=== PATIENT | female | born 1980 | race Caucasian/White ===

== ENCOUNTER → 2016-02-10 | Outpatient (CLI) | payer OTHER ==
[~2016-02-10] MED LIST: ADV500INH INH; ALBU17IN INH; MOTRIN PO; OMEP40CA2 PO; TYLENOL PO; ZYRT10CA PO
[2016-02-11 08:20] LABS: ALPHA 1 ANTITRYPSIN 158 mg/dL (90-200)
[2016-02-12 00:07] LABS: Lyme Disease IgG/IgM Antibodie <0.91 ISR (0.00-0.90); Lyme Disease IgM Ab Quantitati <0.80 index (0.00-0.79)
== END ==
LOC: M LAB 13:33
PROVIDERS: ATTEND Nurse Practitioner Adult Health
DX: J45.901 Unspecified asthma with (acute) exacerbation (principal); L72.9 Follicular cyst of the skin and subcutaneous tissue, unspecified

== ENCOUNTER → 2016-03-30 | Outpatient (REF) | payer OTHER | LOC: M LAB REF 17:12 | PROVIDERS: ATTEND Specialist | DX: Z12.4 Encounter for screening for malignant neoplasm of cervix (principal) ==

== ENCOUNTER → 2016-07-26 | Outpatient (CLI) | payer OTHER ==
[~2016-07-26] MED LIST changes: +ADDE25CA PO; +ALEV220T26 PO; +BREO1INH INH; +IPRASOL4 IN; +MELA10TA3 PO; +PRED20TA PO; +SING10TA32 PO; +SUBO12MI SL
== END ==
LOC: M OUTALCOH 07:58
PROVIDERS: ATTEND Psychiatry & Neurology Psychiatry
DX: Z13.9 Encounter for screening, unspecified (principal); F11.20 Opioid dependence, uncomplicated; F10.10 Alcohol abuse, uncomplicated; F14.10 Cocaine abuse, uncomplicated

== ENCOUNTER 2016-07-28 08:19 | Emergency (ER) | payer OTHER ==
[~2016-07-28 08:19] MED LIST changes: -ADDE25CA PO; -ALEV220T26 PO; -BREO1INH INH; -IPRASOL4 IN; -MELA10TA3 PO; -PRED20TA PO; -SING10TA32 PO; -SUBO12MI SL
[2016-07-28] MEDS ORDERED: BREO1INH INH (08:30)
[2016-07-28] MEDS ORDERED: ALEV220T26 PO (08:30)
[2016-07-28] MEDS ORDERED: SUBO12MI SL (08:32)
[2016-07-28] MEDS ORDERED: ADDE25CA PO (08:32)
[2016-07-28] MEDS ORDERED: MELA10TA3 PO (08:32)
[2016-07-28] MEDS ORDERED: SING10TA32 PO (08:32)
[2016-07-28] MEDS ORDERED: IPRATROPIUM 0.5MG/ALBUTEROL 2.5MG INH SOL UD 3ML (DUONEB)(J7620) NEB ONE ×3 (09:30→11:15)
[2016-07-28] MEDS ORDERED: methylPREDNISolone INJ 125 MG/2 ML VIAL (J2930) IV ONE (09:30)
[2016-07-28] MEDS ORDERED: methylPREDNISolone INJ 125 MG/2 ML VIAL (J2930) IM ONE (10:00)
--- NOTE | 2016-07-28 10:18 | REP ---
PA and lateral chest: Comparisons 12/25/2015. The lung charles are clear. The cardiac size is normal The lory, mediastinum, and bony thorax are unremarkable. Impression: Negative PA and lateral chest. Signed by Laurent Parra MD 07/28/2016 10:10 A
[2016-07-28 10:27] LABS: BASO % 0.9 % (0.0-1.0); EOS # 0.2 K/mm3 (0.0-0.50); EOS % 4.5 % (0.0-3.0); LARGE UNSTAINED CELL # 0.1 K/mm3 (0.0-0.4); LARGE UNSTAINED CELL % 2.3 % (0.0-4.0); LYMPH # 1.8 K/mm3 (1.5-4.5); MEAN CORPUSCULAR HEMOGLOBIN 28.5 pg (27.0-33.0); MEAN CORPUSCULAR HGB CONC 32.8 g/dl (32.0-36.5); MEAN CORPUSCULAR VOLUME 86.7 fl (80.0-96.0); MONO # 0.5 K/mm3 (0.0-0.8); MONO % 8.4 % (0.0-5.0); NEUTROPHILS # 3.1 K/mm3 (1.8-7.7); NEUTROPHILS % 54.9 % (36.0-66.0); PLATELET COUNT, AUTOMATED 211 k/mm3 (150-450); RED CELL DISTRIBUTION WIDTH 15.2 % (11.5-14.5); WHITE BLOOD COUNT 5.6 K/mm3 (4.0-10.0)
[2016-07-28] MEDS ORDERED: MAG SULF 1GM/100ML (MAG RUN) 1 GM in APPROPRIATE DILUENT 1 EA IV ONE (11:15)
[2016-07-28 11:30] LABS: ANION GAP 3 MEQ/L (8-16); BLOOD UREA NITROGEN 11 MG/DL (7-18); CALCIUM LEVEL 9.1 MG/DL (8.5-10.1); CARBON DIOXIDE LEVEL 29 MEQ/L (21-32); CHLORIDE LEVEL 108 MEQ/L (98-107); GLOMERULAR FILTRATION RATE > 60.0 (>60); GLUCOSE, FASTING 96 MG/DL (70-105); POTASSIUM SERUM 4.8 MEQ/L (3.5-5.1); SODIUM LEVEL 140 MEQ/L (136-145)
[2016-07-28] MEDS ORDERED: PRED20TA PO (11:53)
[2016-07-28] MEDS ORDERED: IPRASOL4 IN (11:54)
[2016-07-28 12:06] VITALS: BP 11/74
== END 2016-07-28 12:09 | disposition home or self-care (01) ==
LOC: M ED 09:11
DX: J45.901 Unspecified asthma with (acute) exacerbation (principal); Z86.19 Personal history of other infectious and parasitic diseases; F41.9 Anxiety disorder, unspecified; F32.9 Major depressive disorder, single episode, unspecified; F17.200 Nicotine dependence, unspecified, uncomplicated; Z79.899 Other long term (current) drug therapy; Z88.8 Allergy status to other drugs, medicaments and biological substances

== ENCOUNTER 2016-08-05 10:00 | Outpatient (RCR) | payer MEDICAID ==
[~2016-08-05 10:00] MED LIST changes: +ADDE25CA PO; +ALEV220T26 PO; +BREO1INH INH; +IPRASOL4 IN; +MELA10TA3 PO; +PRED20TA PO; +SING10TA32 PO; +SUBO12MI SL
== END 2016-08-06 | disposition home or self-care (01) ==
LOC: M OUTALCOH 10:00
PROVIDERS: ATTEND Psychiatry & Neurology Psychiatry
DX: F11.20 Opioid dependence, uncomplicated (principal); F10.10 Alcohol abuse, uncomplicated; F14.10 Cocaine abuse, uncomplicated

== ENCOUNTER 2016-09-02 20:52 | Emergency (ER) | payer MEDICAID, OTHER ==
[~2016-09-02] VITALS: Ht 152.4 cm; Wt 61.2 kg
[2016-09-02] MEDS ORDERED: SING10TA32 PO (21:14)
[2016-09-02] MEDS ORDERED: PROZ40CA PO (21:14)
[2016-09-02] MEDS ORDERED: ALBUTEROL SULFATE 2.5 MG/0.5 ML INH NEB SOLN NEB ONE (22:45)
[2016-09-02] MEDS ORDERED: IPRATROPIUM 0.5MG/ALBUTEROL 2.5MG INH SOL UD 3ML (DUONEB)(J7620) NEB ONE (22:45)
[2016-09-02] MEDS ORDERED: predniSONE 20 MG TAB PO ONE (22:45)
[2016-09-02] MEDS ORDERED: KETOROLAC 60 MG/2 ML VIAL (J1885) IM ONE (22:45)
[2016-09-02] MEDS ORDERED: PRED20TA PO (23:42)
[2016-09-02 23:48] VITALS: BP 109/64
== END 2016-09-02 23:52 | disposition home or self-care (01) ==
LOC: M ED 20:52
DX: J44.1 Chronic obstructive pulmonary disease with (acute) exacerbation (principal); M79.1 Myalgia; F41.9 Anxiety disorder, unspecified; F32.9 Major depressive disorder, single episode, unspecified; J45.909 Unspecified asthma, uncomplicated; B18.2 Chronic viral hepatitis C; F17.200 Nicotine dependence, unspecified, uncomplicated
CPT/HCPCS: 94640; 96374; 99282; J1885

== ENCOUNTER → 2016-09-20 | Outpatient (CLI) | payer OTHER ==
[~2016-09-20] MED LIST changes: +PROZ40CA PO; +ZITHTAB PO
[2016-09-20 10:42] LABS: MEAN CORPUSCULAR HEMOGLOBIN 29.3 pg (27.0-33.0); MEAN CORPUSCULAR VOLUME 88.7 fl (80.0-96.0); RED CELL DISTRIBUTION WIDTH 15.1 % (11.5-14.5); WHITE BLOOD COUNT 10.1 K/mm3 (4.0-10.0)
--- NOTE | 2016-09-20 10:57 | REP ---
PA and lateral chest: Comparison is 07/28/2016. There is a 11 mm density in the right mid lung. There is a 9 mm density in the left mid lung. These are changes from the comparison study. A occurred areas of the overlap and may merely be artifact. However, CT of the chest might be considered for further evaluation as these are changes from the prior study. The lung charles otherwise clear. Cardiac size normal. The lory, mediastinum, and bony thorax are well. Impression: There is a new nodular density in the right lung and nodular density in the left lung. These may merely represent superimposition artifact, but these are a change from the prior study. Therefore, consider CT of the chest for further evaluation. Signed by Laurent Parra MD 09/20/2016 10:49 A
[2016-09-20 11:33] LABS: ALBUMIN 3.7 GM/DL (3.2-5.2); ALBUMIN/GLOBULIN RATIO 1.16 (1.00-1.93); ALKALINE PHOSPHATASE 74 U/L (45-117); ALT/SGPT 25 U/L (12-78); ANION GAP 9 MEQ/L (8-16); AST/SGOT 22 U/L (15-37); BILIRUBIN,TOTAL 0.3 MG/DL (0.2-1.0); BLOOD UREA NITROGEN 9 MG/DL (7-18); CALCIUM LEVEL 8.3 MG/DL (8.5-10.1); CARBON DIOXIDE LEVEL 22 MEQ/L (21-32); CHLORIDE LEVEL 109 MEQ/L (98-107); CHOLESTEROL LEVEL 225 MG/DL (<200); CREATININE FOR GFR 0.59 MG/DL (0.55-1.02); GLOMERULAR FILTRATION RATE > 60.0 (>60); GLUCOSE, FASTING 84 MG/DL (70-105); POTASSIUM SERUM 4.6 MEQ/L (3.5-5.1); SODIUM LEVEL 140 MEQ/L (136-145); TOTAL PROTEIN 6.9 GM/DL (6.4-8.2); TRIGLYCERIDES LEVEL 215 MG/DL (<150)
== END ==
LOC: M LAB 10:06
PROVIDERS: ATTEND Family Medicine
DX: J44.9 Chronic obstructive pulmonary disease, unspecified (principal); R53.83 Other fatigue

== ENCOUNTER 2016-09-21 18:05 | Emergency (ER) | payer OTHER ==
[~2016-09-21] VITALS: Ht 152.4 cm; Wt 59.1 kg
[~2016-09-21 18:05] MED LIST changes: -ZITHTAB PO
[2016-09-21] MEDS ORDERED: ALBUTEROL SULFATE 2.5 MG/0.5 ML INH NEB SOLN NEB ONE (19:30)
[2016-09-21] MEDS ORDERED: NS 1,000 ML IV ONE (19:30)
[2016-09-21] MEDS ORDERED: PRED20TA PO (21:48)
[2016-09-21] MEDS ORDERED: ZITHTAB PO (21:48)
[2016-09-21 21:56] VITALS: BP 30/7
== END 2016-09-21 22:00 | disposition home or self-care (01) ==
LOC: M ED 18:05
DX: J45.901 Unspecified asthma with (acute) exacerbation (principal); J20.9 Acute bronchitis, unspecified; B19.20 Unspecified viral hepatitis C without hepatic coma; M79.7 Fibromyalgia; F90.0 Attention-deficit hyperactivity disorder, predominantly inattentive type; F32.9 Major depressive disorder, single episode, unspecified; F43.10 Post-traumatic stress disorder, unspecified; F17.210 Nicotine dependence, cigarettes, uncomplicated; Z88.7 Allergy status to serum and vaccine; Z79.899 Other long term (current) drug therapy

== ENCOUNTER → 2016-09-24 | Outpatient (CLI) | payer OTHER ==
[~2016-09-24] MED LIST changes: +ZITHTAB PO
--- NOTE | 2016-09-24 14:43 | REP ---
Thyroid ultrasound for mass in the right thyroid lobe: There are no comparison studies. The thyroid gland is normal size. Right lobe measures 4.2 x 1.3 x 1.5 cm. Left lobe measures 4.2 x 1.3 x 1.7 cm. The isthmus is 4.9 mm in thickness. There is a 2.4 mm cyst in the right lobe. There is no mass or cyst in the left lobe. Thyroid parenchyma is otherwise homogeneous. Impression: There is a 2.4 mm cyst in the thyroid right lobe. Otherwise, negative thyroid ultrasound. Signed by Laurent Parra MD 09/24/2016 02:34 P
== END ==
LOC: M RAD 13:49
PROVIDERS: ATTEND Family Medicine
DX: E04.1 Nontoxic single thyroid nodule (principal)

== ENCOUNTER → 2016-11-19 | Outpatient (CLI) | payer OTHER ==
[2016-11-19 16:08] LABS: THYROID PEROXIDASE ANTIBODY < 28.0 U/ML (<60.0)
== END ==
LOC: M LAB 15:11
PROVIDERS: ATTEND Nurse Practitioner Family
DX: E04.1 Nontoxic single thyroid nodule (principal)

== ENCOUNTER → 2017-02-03 | Outpatient (REF) | payer OTHER | LOC: M LAB REF 08:20 | DX: R30.0 Dysuria (principal) | CPT/HCPCS: 81001 ==

== ENCOUNTER → 2017-03-31 | Outpatient (REF) | payer OTHER | LOC: M LAB REF 13:01 | DX: J11.1 Influenza due to unidentified influenza virus with other respiratory manifestations (principal) ==

== ENCOUNTER 2017-04-02 10:08 | Inpatient (IN) | payer OTHER ==
[2017-04-02] MEDS: MORPHINE 4 MG/ML 1ML VIAL (J2270) IV (11:09)
[2017-04-02 11:12] LABS: BASO # 0.1 10^3/uL (0.0-0.2); BASO % 0.3 % (0.0-1.0); EOS # 0.2 10^3/uL (0.0-0.50); EOS % 1.5 % (0.0-3.0); HEMATOCRIT 39.8 % (36.0-47.0); HEMOGLOBIN 12.9 g/dl (12.0-16.0); IMMATURE GRANULOCYTE % 0.3 % (0-3.0); LYMPH # 2.4 10^3/uL (1.5-4.5); LYMPH % 16.9 % (24.0-44.0); MEAN CORPUSCULAR HEMOGLOBIN 28.8 pg (27.0-33.0); MEAN CORPUSCULAR HGB CONC 32.4 g/dl (32.0-36.5); MEAN CORPUSCULAR VOLUME 88.8 fl (80.0-96.0); MONO # 1.2 10^3/uL (0.0-0.8); MONO % 8.5 % (0.0-5.0); NEUTROPHILS # 10.4 10^3/uL (1.8-7.7); NEUTROPHILS % 72.5 % (36.0-66.0); PLATELET COUNT, AUTOMATED 255 10^3/uL (150-450); RED BLOOD COUNT 4.48 10^6/uL (4.00-5.40); RED CELL DISTRIBUTION WIDTH 14.8 % (11.5-14.5); WHITE BLOOD COUNT 14.3 10^3/uL (4.0-10.0)
[2017-04-02 11:37] LABS: ANION GAP 6 MEQ/L (8-16); BLOOD UREA NITROGEN 6 MG/DL (7-18); C REACTIVE PROTEIN QUANTITATIV 7.58 MG/DL (0.00-0.30); CALCIUM LEVEL 8.6 MG/DL (8.5-10.1); CARBON DIOXIDE LEVEL 26 MEQ/L (21-32); CHLORIDE LEVEL 102 MEQ/L (98-107); CREATININE FOR GFR 0.64 MG/DL (0.55-1.30); GLOMERULAR FILTRATION RATE > 60.0 (>60); GLUCOSE, FASTING 126 MG/DL (70-100); POTASSIUM SERUM 4.5 MEQ/L (3.5-5.1); SODIUM LEVEL 134 MEQ/L (136-145)
[2017-04-02 11:44] LABS: ERYTHROCYTE SEDIMENTATION RATE 41 mm/hr (0-20)
[2017-04-02] MEDS: KETOROLAC 30 MG/ML VIAL (J1885) IV (11:47)
[2017-04-02] MEDS: VANCOMYCIN HCL 1,000 MG, VIAL MATE ADAPTER 1 EACH in D5W 250 ML IV (12:00)
[2017-04-02] MEDS ORDERED: ONDANSETRON 4MG/2ML VIAL (J2405) IV (13:00)
[2017-04-02] MEDS ORDERED: IPRATROPIUM 0.5MG/ALBUTEROL 2.5MG INH SOL UD 3ML (DUONEB)(J7620) NEB (13:00)
[2017-04-02] MEDS ORDERED: PERCOCET 5MG/325MG TAB PO (13:00)
[2017-04-02] MEDS ORDERED: MORPHINE 4 MG/ML 1ML VIAL (J2270) IV (13:00)
[2017-04-02] MEDS: LORazepam 1 MG TAB PO (13:18)
[2017-04-02] MEDS: NS 1,000 ML IV (13:59)
[2017-04-02] MEDS ORDERED: VANCOMYCIN HCL 1,000 MG, VIAL MATE ADAPTER 1 EACH in D5W 250 ML IV (21:00)
[2017-04-03] MEDS ORDERED: FLUoxetine 20 MG CAP PO (09:00)
[2017-04-03] MEDS ORDERED: CETIRIZINE (ZyrTEC) 10 MG TAB PO (09:00)
[2017-04-03] MEDS ORDERED: ENOXAPARIN 40 MG/0.4 ML SYRINGE (J1650) SC (09:00)
[2017-04-03] MEDS ORDERED: MONTELUKAST 10 MG TAB PO (09:00)
[2017-04-03] MEDS ORDERED: OMEPRAZOLE 20 MG CAP PO (09:00)
== END 2017-04-02 14:31 | disposition home or self-care (01) | DRG 383 ==
LOC: M ED 10:08 → M ED INP 12:46
DX: L02.416 Cutaneous abscess of left lower limb (principal); F32.9 Major depressive disorder, single episode, unspecified; B18.2 Chronic viral hepatitis C; J45.909 Unspecified asthma, uncomplicated; F41.9 Anxiety disorder, unspecified; K21.9 Gastro-esophageal reflux disease without esophagitis; Z79.899 Other long term (current) drug therapy; F11.10 Opioid abuse, uncomplicated; F17.200 Nicotine dependence, unspecified, uncomplicated; M79.7 Fibromyalgia; F43.10 Post-traumatic stress disorder, unspecified; Z91.419 Personal history of unspecified adult abuse

== ENCOUNTER 2017-04-03 14:08 | Emergency (ER) | payer OTHER | END 2017-04-03 15:26 | disposition home or self-care (01) | LOC: M ED 14:08 | DX: L03.116 Cellulitis of left lower limb (principal); L02.416 Cutaneous abscess of left lower limb; K44.9 Diaphragmatic hernia without obstruction or gangrene; Z88.8 Allergy status to other drugs, medicaments and biological substances | CPT/HCPCS: 99283 ==

== ENCOUNTER 2017-04-05 11:38 | Emergency (ER) | payer OTHER | END 2017-04-05 14:32 | disposition home or self-care (01) | LOC: M ED 11:38 | DX: L02.416 Cutaneous abscess of left lower limb (principal); J44.9 Chronic obstructive pulmonary disease, unspecified; F19.10 Other psychoactive substance abuse, uncomplicated; Z88.8 Allergy status to other drugs, medicaments and biological substances; Z79.2 Long term (current) use of antibiotics; Z79.899 Other long term (current) drug therapy | CPT/HCPCS: 99282 ==

== ENCOUNTER 2017-05-23 06:36 | Emergency (ER) | payer OTHER ==
[2017-05-23 08:20] LABS: AMPHETAMINES LEVEL URINE NEGATIVE (NEGATIVE); BARBITURATES URINE NEGATIVE (NEGATIVE); BASO % 0.2 % (0.0-1.0); BENZODIAZEPINES URINE NEGATIVE (NEGATIVE); CANNABINOIDS URINE NEGATIVE (NEGATIVE); COCAINE METABOLITE URINE POSITIVE (NEGATIVE); HEMATOCRIT 39.6 % (36.0-47.0); HEMOGLOBIN 12.6 g/dl (12.0-15.5); IMMATURE GRANULOCYTE % 0.5 % (0-3.0); LYMPH # 1.4 10^3/uL (1.5-4.5); LYMPH % 12.5 % (24.0-44.0); MEAN CORPUSCULAR HEMOGLOBIN 28.2 pg (27.0-33.0); MEAN CORPUSCULAR HGB CONC 31.8 g/dl (32.0-36.5); MEAN CORPUSCULAR VOLUME 88.6 fl (80.0-96.0); METHADONE URINE NEGATIVE (NEGATIVE); MONO # 0.4 10^3/uL (0.0-0.8); MONO % 3.2 % (0.0-5.0); NEUTROPHILS % 83.6 % (36.0-66.0); OPIATES URINE POSITIVE (NEGATIVE); PHENCYCLIDINE URINE NEGATIVE (NEGATIVE); PLATELET COUNT, AUTOMATED 294 10^3/uL (150-450); RED BLOOD COUNT 4.47 10^6/uL (4.00-5.40); WHITE BLOOD COUNT 10.8 10^3/uL (4.0-10.0)
[2017-05-23 08:30] LABS: INR 0.92; PROTHROMBIN TIME 12.4 SECONDS (12.4-14.5)
[2017-05-23 08:45] LABS: ALBUMIN 3.6 GM/DL (3.2-5.2); ALBUMIN/GLOBULIN RATIO 0.84 (1.00-1.93); ALKALINE PHOSPHATASE 101 U/L (45-117); ALT/SGPT 40 U/L (12-78); ANION GAP 4 MEQ/L (8-16); AST/SGOT 33 U/L (7-37); BILIRUBIN,DIRECT < 0.1 MG/DL (0.0-0.2); BILIRUBIN,TOTAL 0.3 MG/DL (0.2-1.0); BLOOD UREA NITROGEN 11 MG/DL (7-18); CARBON DIOXIDE LEVEL 29 MEQ/L (21-32); CHLORIDE LEVEL 105 MEQ/L (98-107); CREATININE FOR GFR 0.73 MG/DL (0.55-1.30); GLOMERULAR FILTRATION RATE > 60.0 (>60); GLUCOSE, FASTING 142 MG/DL (70-100); POTASSIUM SERUM 4.8 MEQ/L (3.5-5.1); SODIUM LEVEL 138 MEQ/L (136-145); TOTAL PROTEIN 7.9 GM/DL (6.4-8.2)
== END 2017-05-23 09:41 | disposition home or self-care (01) ==
LOC: M ED 06:36
DX: R22.42 Localized swelling, mass and lump, left lower limb (principal); J44.9 Chronic obstructive pulmonary disease, unspecified; F41.9 Anxiety disorder, unspecified; F33.9 Major depressive disorder, recurrent, unspecified; K44.9 Diaphragmatic hernia without obstruction or gangrene; B19.20 Unspecified viral hepatitis C without hepatic coma; F11.20 Opioid dependence, uncomplicated; Z79.899 Other long term (current) drug therapy; Z79.51 Long term (current) use of inhaled steroids; Z88.8 Allergy status to other drugs, medicaments and biological substances; F17.210 Nicotine dependence, cigarettes, uncomplicated
CPT/HCPCS: 73610

== ENCOUNTER 2017-06-02 22:34 | Emergency (ER) | payer OTHER | END 2017-06-03 02:57 | disposition home or self-care (01) | LOC: M ED 22:34 | DX: S80.12XA Contusion of left lower leg, initial encounter (principal); V18.0XXA Pedal cycle driver injured in noncollision transport accident in nontraffic accident, initial encounter; Y92.89 Other specified places as the place of occurrence of the external cause; J45.909 Unspecified asthma, uncomplicated; K21.9 Gastro-esophageal reflux disease without esophagitis; F33.9 Major depressive disorder, recurrent, unspecified; F41.9 Anxiety disorder, unspecified; F17.200 Nicotine dependence, unspecified, uncomplicated; Z88.8 Allergy status to other drugs, medicaments and biological substances; Z79.899 Other long term (current) drug therapy; Z79.51 Long term (current) use of inhaled steroids; Z79.2 Long term (current) use of antibiotics | CPT/HCPCS: 93971 ==

== ENCOUNTER → 2017-06-20 | Outpatient (CLI) | payer OTHER ==
[2017-06-20 17:51] LABS: HEMATOCRIT 41.5 % (36.0-47.0); HEMOGLOBIN 13.2 g/dl (12.0-15.5); MEAN CORPUSCULAR HEMOGLOBIN 27.6 pg (27.0-33.0); MEAN CORPUSCULAR HGB CONC 31.8 g/dl (32.0-36.5); MEAN CORPUSCULAR VOLUME 86.6 fl (80.0-96.0); PLATELET COUNT, AUTOMATED 388 10^3/uL (150-450); RED BLOOD COUNT 4.79 10^6/uL (4.00-5.40); RED CELL DISTRIBUTION WIDTH 13.9 % (11.5-14.5); WHITE BLOOD COUNT 9.9 10^3/uL (4.0-10.0)
[2017-06-20 18:02] LABS: CHLAMYDIA DNA AMPLIFICATION NEGATIVE (NEGATIVE); GC DNA AMPLIFICATION NEGATIVE (NEGATIVE)
[2017-06-20 21:50] LABS: ALBUMIN 3.9 GM/DL (3.2-5.2); ALBUMIN/GLOBULIN RATIO 0.93 (1.00-1.93); ALKALINE PHOSPHATASE 87 U/L (45-117); ALT/SGPT 25 U/L (12-78); ANION GAP 8 MEQ/L (8-16); AST/SGOT 18 U/L (7-37); BILIRUBIN,TOTAL 0.2 MG/DL (0.2-1.0); BLOOD UREA NITROGEN 10 MG/DL (7-18); CALCIUM LEVEL 9.3 MG/DL (8.5-10.1); CARBON DIOXIDE LEVEL 25 MEQ/L (21-32); CHLORIDE LEVEL 107 MEQ/L (98-107); CREATININE FOR GFR 0.71 MG/DL (0.55-1.30); GLOMERULAR FILTRATION RATE > 60.0 (>60); GLUCOSE, FASTING 124 MG/DL (70-100); POTASSIUM SERUM 4.9 MEQ/L (3.5-5.1); SODIUM LEVEL 140 MEQ/L (136-145); TOTAL PROTEIN 8.1 GM/DL (6.4-8.2)
[2017-06-22 10:42] LABS: HEPATITIS B SURFACE ANTIGEN NEGATIVE (NEGATIVE)
[2017-06-22 10:58] LABS: HIV 1&2 SCREEN CENTAUR NEGATIVE (NEGATIVE)
[2017-06-22 11:07] LABS: HEPATITIS C VIRUS ABY INDEX > 11.0 INDEX (<0.8)
== END ==
LOC: M LAB 15:52
DX: F11.20 Opioid dependence, uncomplicated (principal)
CPT/HCPCS: 93005

== ENCOUNTER 2017-07-05 11:35 | Emergency (ER) | payer OTHER ==
[2017-07-05] MEDS: DOXYCYCLINE HYCLATE 100 MG TAB PO (17:49)
[2017-07-05] MEDS: cefTRIAXone SOD 250 MG VIAL (J0696) IM (17:50)
[2017-07-05] MEDS: methylPREDNISolone INJ 125 MG/2 ML VIAL (J2930) IM (17:50)
[2017-07-05 17:56] LABS: HEMOGLOBIN 13.5 g/dl (12.0-15.5); MEAN CORPUSCULAR HEMOGLOBIN 27.6 pg (27.0-33.0); MEAN CORPUSCULAR HGB CONC 32.1 g/dl (32.0-36.5); MEAN CORPUSCULAR VOLUME 85.7 fl (80.0-96.0); PLATELET COUNT, AUTOMATED 217 10^3/uL (150-450); RED CELL DISTRIBUTION WIDTH 15.3 % (11.5-14.5)
[2017-07-05] MEDS: IPRATROPIUM 0.5MG/ALBUTEROL 2.5MG INH SOL UD 3ML (DUONEB)(J7620) NEB (18:05)
[2017-07-05 18:06] LABS: ADD MANUAL DIFFER YES; DIFF SLIDE NUMBER 363; POSITIVE DIFF POS FLAG; POSITIVE MORPH POS FLAG
[2017-07-05 18:24] LABS: ANION GAP 1 MEQ/L (8-16); BLOOD UREA NITROGEN 6 MG/DL (7-18); CALCIUM LEVEL 9.3 MG/DL (8.5-10.1); CARBON DIOXIDE LEVEL 33 MEQ/L (21-32); CHLORIDE LEVEL 104 MEQ/L (98-107); CREATININE FOR GFR 0.67 MG/DL (0.55-1.30); GLOMERULAR FILTRATION RATE > 60.0 (>60); GLUCOSE, FASTING 78 MG/DL (70-100); SODIUM LEVEL 138 MEQ/L (136-145)
[2017-07-05 18:27] LABS: ATYPICAL LYMPH 24 % (0-5); BASOPHILS 1 % (0-4); LYMPHOCYTES 54 % (16-52); MONOCYTES 6 % (0-8); NEUTROPHILS 15 % (35-75); PLATELET ESTIMATE NORMAL (NORMAL)
[2017-07-06 00:19] LABS: CHLAMYDIA DNA AMPLIFICATION NEGATIVE (NEGATIVE); GC DNA AMPLIFICATION NEGATIVE (NEGATIVE)
== END 2017-07-05 20:26 | disposition home or self-care (01) ==
LOC: M ED 11:35
DX: J44.0 Chronic obstructive pulmonary disease with (acute) lower respiratory infection (principal); J45.909 Unspecified asthma, uncomplicated; Z20.2 Contact with and (suspected) exposure to infections with a predominantly sexual mode of transmission; B19.20 Unspecified viral hepatitis C without hepatic coma; M79.7 Fibromyalgia; F11.21 Opioid dependence, in remission; F17.210 Nicotine dependence, cigarettes, uncomplicated; Z88.8 Allergy status to other drugs, medicaments and biological substances; Z79.899 Other long term (current) drug therapy; Z79.51 Long term (current) use of inhaled steroids
CPT/HCPCS: J0696

== ENCOUNTER → 2017-07-31 | Outpatient (CLI) | payer OTHER | LOC: M LAB 16:53 | DX: E04.1 Nontoxic single thyroid nodule (principal) ==

== ENCOUNTER → 2017-07-31 | Outpatient (CLI) | payer OTHER | LOC: M LAB 16:50 | DX: N91.1 Secondary amenorrhea (principal) ==

== ENCOUNTER → 2017-08-01 | Outpatient (CLI) | payer OTHER ==
[2017-08-01 16:54] LABS: LUTEINIZING HORMONE < 0.1 mIU/mL; PROLACTIN 31.4 NG/ML
[2017-08-02 10:37] LABS: PROGESTERONE < 0.2 NG/ML
[2017-08-04 00:06] LABS: TESTOSTERONE FREE (DIRECT) < 0.2 pg/mL (0.0-4.2); TESTOSTERONE TOTAL FOR T&D < 3.0 ng/dL (8-48)
== END ==
LOC: M LAB 15:16
DX: N91.1 Secondary amenorrhea (principal)
CPT/HCPCS: 83001

== ENCOUNTER → 2017-08-01 | Outpatient (CLI) | payer OTHER ==
[2017-08-01 16:54] LABS: FREE T4 0.93 NG/DL (0.76-1.46); THYROID STIMULATING HORMONE 0.907 uIU/ML (0.358-3.740)
== END ==
LOC: M LAB 15:10
DX: E04.1 Nontoxic single thyroid nodule (principal)
CPT/HCPCS: 84443

== ENCOUNTER 2017-08-04 09:07 | Emergency (ER) | payer OTHER ==
[2017-08-04] MEDS: methylPREDNISolone INJ 125 MG/2 ML VIAL (J2930) IV (09:28)
[2017-08-04 09:39] LABS: BASO # 0.1 10^3/uL (0.0-0.2); BASO % 0.5 % (0.0-1.0); EOS # 0.5 10^3/uL (0.0-0.50); EOS % 4.7 % (0.0-3.0); HEMATOCRIT 41.8 % (36.0-47.0); HEMOGLOBIN 13.5 g/dl (12.0-15.5); IMMATURE GRANULOCYTE % 0.4 % (0-3.0); LYMPH # 2.6 10^3/uL (1.5-4.5); LYMPH % 23.1 % (24.0-44.0); MEAN CORPUSCULAR HEMOGLOBIN 28.1 pg (27.0-33.0); MEAN CORPUSCULAR HGB CONC 32.3 g/dl (32.0-36.5); MEAN CORPUSCULAR VOLUME 87.1 fl (80.0-96.0); MONO # 0.9 10^3/uL (0.0-0.8); MONO % 8.4 % (0.0-5.0); NEUTROPHILS % 62.9 % (36.0-66.0); PLATELET COUNT, AUTOMATED 252 10^3/uL (150-450); RED CELL DISTRIBUTION WIDTH 15.5 % (11.5-14.5); WHITE BLOOD COUNT 11.1 10^3/uL (4.0-10.0)
[2017-08-04] MEDS: IPRATROPIUM 0.5MG/ALBUTEROL 2.5MG INH SOL UD 3ML (DUONEB)(J7620) NEB ×3 (10:06→10:32)
[2017-08-04 10:10] LABS: LACTIC ACID SEPSIS PROTOCOL 1.1 MMOL/L (0.4-2.0)
[2017-08-04 10:17] LABS: ALBUMIN 3.4 GM/DL (3.2-5.2); ALBUMIN/GLOBULIN RATIO 0.67 (1.00-1.93); ALKALINE PHOSPHATASE 90 U/L (45-117); ALT/SGPT 35 U/L (12-78); ANION GAP 7 MEQ/L (8-16); AST/SGOT 26 U/L (7-37); BILIRUBIN,DIRECT 0.1 MG/DL (0.0-0.2); BILIRUBIN,TOTAL 0.3 MG/DL (0.2-1.0); BLOOD UREA NITROGEN 11 MG/DL (7-18); CALCIUM LEVEL 9.2 MG/DL (8.5-10.1); CARBON DIOXIDE LEVEL 31 MEQ/L (21-32); CHLORIDE LEVEL 100 MEQ/L (98-107); CREATININE FOR GFR 0.69 MG/DL (0.55-1.30); GLOMERULAR FILTRATION RATE > 60.0 (>60); GLUCOSE, FASTING 89 MG/DL (70-100); POTASSIUM SERUM 4.3 MEQ/L (3.5-5.1); SODIUM LEVEL 138 MEQ/L (136-145); THYROID STIMULATING HORMONE 0.861 uIU/ML (0.358-3.740); TOTAL PROTEIN 8.5 GM/DL (6.4-8.2)
[2017-08-04 10:19] LABS: ABG HCO3 26.8 MEQ/L (22.0-26.0); ABG O2 SATURATION 89.7 % (95.0-99.0); ABG PARTIAL PRESSURE CO2 47.6 mmHg (35.0-45.0); ABG PARTIAL PRESSURE O2 55.3 mmHg (75.0-100.0); ABG STANDARD HCO3 25.1 MEQ/L (22.0-26.0); ABG TOTAL CO2 28.3 MEQ/L (22.0-29.0); ABG pH (ARTERIAL) 7.369 UNITS (7.350-7.450)
== END 2017-08-04 11:35 | disposition left against medical advice (07) ==
LOC: M ED 09:07
DX: J45.901 Unspecified asthma with (acute) exacerbation (principal); Z87.01 Personal history of pneumonia (recurrent); Z79.899 Other long term (current) drug therapy; Z88.8 Allergy status to other drugs, medicaments and biological substances; Z53.21 Procedure and treatment not carried out due to patient leaving prior to being seen by health care provider
CPT/HCPCS: J2930

== ENCOUNTER → 2017-08-17 | Outpatient (CLI) | payer OTHER ==
[2017-08-17 13:02] LABS: HEMATOCRIT 42.3 % (36.0-47.0); HEMOGLOBIN 13.6 g/dl (12.0-15.5); MEAN CORPUSCULAR HEMOGLOBIN 27.6 pg (27.0-33.0); MEAN CORPUSCULAR HGB CONC 32.2 g/dl (32.0-36.5); MEAN CORPUSCULAR VOLUME 85.8 fl (80.0-96.0); PLATELET COUNT, AUTOMATED 341 10^3/uL (150-450); RED BLOOD COUNT 4.93 10^6/uL (4.00-5.40); RED CELL DISTRIBUTION WIDTH 15.9 % (11.5-14.5); WHITE BLOOD COUNT 9.2 10^3/uL (4.0-10.0)
[2017-08-17 13:24] LABS: INR 0.94; PROTHROMBIN TIME 12.7 SECONDS (12.1-14.4)
[2017-08-17 14:02] LABS: ALBUMIN 3.3 GM/DL (3.2-5.2); ALBUMIN/GLOBULIN RATIO 0.83 (1.00-1.93); ALKALINE PHOSPHATASE 116 U/L (45-117); ALT/SGPT 66 U/L (12-78); ANION GAP 4 MEQ/L (8-16); AST/SGOT 27 U/L (7-37); BILIRUBIN,TOTAL 0.2 MG/DL (0.2-1.0); BLOOD UREA NITROGEN 7 MG/DL (7-18); CALCIUM LEVEL 8.8 MG/DL (8.5-10.1); CARBON DIOXIDE LEVEL 31 MEQ/L (21-32); CHLORIDE LEVEL 106 MEQ/L (98-107); CHOLESTEROL LEVEL 166 MG/DL (<200); CHOLESTEROL RISK RATIO 6.916 (<5); CREATININE FOR GFR 0.67 MG/DL (0.55-1.30); GLOMERULAR FILTRATION RATE > 60.0 (>60); GLUCOSE, FASTING 66 MG/DL (70-100); HDL CHOLESTEROL 24 MG/DL (>40); LDL CHOLESTEROL 82.8 MG/DL (<100); NON-HDL-C 142 MG/DL; POTASSIUM SERUM 4.9 MEQ/L (3.5-5.1); SODIUM LEVEL 141 MEQ/L (136-145); TOTAL PROTEIN 7.3 GM/DL (6.4-8.2); TRIGLYCERIDES LEVEL 296 MG/DL (<150)
== END ==
LOC: M LAB 11:16
DX: Z01.818 Encounter for other preprocedural examination (principal); J44.9 Chronic obstructive pulmonary disease, unspecified; R94.31 Abnormal electrocardiogram [ECG] [EKG]
CPT/HCPCS: 71046

== ENCOUNTER → 2017-08-22 | Outpatient (CLI) | payer OTHER | LOC: M PT 11:16 | DX: S83.207A Unspecified tear of unspecified meniscus, current injury, left knee, initial encounter (principal); X58.XXXA Exposure to other specified factors, initial encounter; Y92.9 Unspecified place or not applicable; Z46.4 Encounter for fitting and adjustment of orthodontic device | CPT/HCPCS: 97161 ==

== ENCOUNTER 2017-09-12 13:47 | Outpatient (RCR) | payer OTHER | END 2017-10-07 | LOC: M PT 13:47 | DX: Z47.89 Encounter for other orthopedic aftercare (principal); Z98.890 Other specified postprocedural states; M25.562 Pain in left knee | CPT/HCPCS: 97010 ==

== ENCOUNTER 2017-11-22 20:25 | Emergency (ER) | payer OTHER ==
[2017-11-22] MEDS: KETOROLAC 0.5% OPHTH SOLN OD (21:54)
== END 2017-11-22 21:59 | disposition home or self-care (01) ==
LOC: M ED 20:25
DX: S05.01XA Injury of conjunctiva and corneal abrasion without foreign body, right eye, initial encounter (principal); H10.021 Other mucopurulent conjunctivitis, right eye; X58.XXXA Exposure to other specified factors, initial encounter; Y92.89 Other specified places as the place of occurrence of the external cause; J44.0 Chronic obstructive pulmonary disease with (acute) lower respiratory infection; R06.02 Shortness of breath; K44.9 Diaphragmatic hernia without obstruction or gangrene; B19.20 Unspecified viral hepatitis C without hepatic coma; F11.20 Opioid dependence, uncomplicated; F41.9 Anxiety disorder, unspecified; F32.9 Major depressive disorder, single episode, unspecified; M79.7 Fibromyalgia; Z88.7 Allergy status to serum and vaccine; Z79.899 Other long term (current) drug therapy; Z79.2 Long term (current) use of antibiotics
CPT/HCPCS: 87205

== ENCOUNTER 2017-12-06 20:49 | Inpatient (IN) | payer OTHER ==
[2017-12-06] MEDS: IPRATROPIUM 0.5MG/ALBUTEROL 2.5MG INH SOL UD 3ML (DUONEB)(J7620) NEB ×2 (21:17→23:41)
[2017-12-06] MEDS: ACETAMINOPHEN TAB 650MG DOSE (2X325MG) PO (21:29)
[2017-12-06] MEDS: predniSONE 20 MG TAB PO (21:29)
[2017-12-06 22:15] LABS: BASO # 0.1 10^3/uL (0.0-0.2); BASO % 0.3 % (0.0-1.0); EOS # 0.1 10^3/uL (0.0-0.50); EOS % 0.3 % (0.0-3.0); HEMATOCRIT 42.1 % (36.0-47.0); HEMOGLOBIN 13.3 g/dl (12.0-15.5); IMMATURE GRANULOCYTE % 0.8 % (0-3.0); LYMPH # 3.4 10^3/uL (1.5-4.5); LYMPH % 11.5 % (24.0-44.0); MEAN CORPUSCULAR HEMOGLOBIN 28.4 pg (27.0-33.0); MEAN CORPUSCULAR HGB CONC 31.6 g/dl (32.0-36.5); MEAN CORPUSCULAR VOLUME 89.8 fl (80.0-96.0); MONO % 8.9 % (0.0-5.0); NEUTROPHILS # 23.4 10^3/uL (1.8-7.7); NEUTROPHILS % 78.2 % (36.0-66.0); PLATELET COUNT, AUTOMATED 235 10^3/uL (150-450); RED BLOOD COUNT 4.69 10^6/uL (4.00-5.40); RED CELL DISTRIBUTION WIDTH 14.2 % (11.5-14.5); WHITE BLOOD COUNT 29.9 10^3/uL (4.0-10.0)
[2017-12-06 22:30] LABS: MONO # 2.7 10^3/uL (0.0-0.8); POSITIVE DIFF POS FLAG
[2017-12-06 22:36] LABS: ANION GAP 7 MEQ/L (8-16); BLOOD UREA NITROGEN 10 MG/DL (7-18); CALCIUM LEVEL 8.6 MG/DL (8.5-10.1); CARBON DIOXIDE LEVEL 28 MEQ/L (21-32); CHLORIDE LEVEL 97 MEQ/L (98-107); CREATININE FOR GFR 0.56 MG/DL (0.55-1.30); GLOMERULAR FILTRATION RATE > 60.0 (>60); GLUCOSE, FASTING 89 MG/DL (70-100); POTASSIUM SERUM 4.6 MEQ/L (3.5-5.1); SODIUM LEVEL 132 MEQ/L (136-145)
[2017-12-06] MEDS: NS 1,000 ML IV (23:25)
[2017-12-06] MEDS: methylPREDNISolone INJ 125 MG/2 ML VIAL (J2930) IV (23:25)
[2017-12-06] MEDS ORDERED: BISACODYL 10 MG SUPP PR (23:30)
[2017-12-06] MEDS ORDERED: ACETAMINOPHEN TAB 650MG DOSE (2X325MG) PO (23:30)
[2017-12-06] MEDS: ALBUTEROL SULFATE 2.5 MG/0.5 ML INH NEB SOLN NEB (23:41)
[2017-12-06 23:55] LABS: LACTIC ACID SEPSIS PROTOCOL 0.6 MMOL/L (0.4-2.0)
[2017-12-07] MEDS: IPRATROPIUM 0.5MG/ALBUTEROL 2.5MG INH SOL UD 3ML (DUONEB)(J7620) NEB (01:53)
[2017-12-07] MEDS: HEPARIN SOD (PORCINE) 5000 UNITS/ML VIAL SC ×3 (05:35→22:03)
[2017-12-07] MEDS: methylPREDNISolone INJ 125 MG/2 ML VIAL (J2930) IV (07:47)
[2017-12-07 08:27] LABS: HEMOGLOBIN 11.9 g/dl (12.0-15.5); MEAN CORPUSCULAR HEMOGLOBIN 28.4 pg (27.0-33.0); MEAN CORPUSCULAR HGB CONC 31.3 g/dl (32.0-36.5); MEAN CORPUSCULAR VOLUME 90.7 fl (80.0-96.0); PLATELET COUNT, AUTOMATED 218 10^3/uL (150-450); RED BLOOD COUNT 4.19 10^6/uL (4.00-5.40); RED CELL DISTRIBUTION WIDTH 14.2 % (11.5-14.5); WHITE BLOOD COUNT 22.8 10^3/uL (4.0-10.0)
[2017-12-07 08:34] LABS: ANION GAP 6 MEQ/L (8-16); BLOOD UREA NITROGEN 9 MG/DL (7-18); CALCIUM LEVEL 8.9 MG/DL (8.5-10.1); CARBON DIOXIDE LEVEL 27 MEQ/L (21-32); CHLORIDE LEVEL 105 MEQ/L (98-107); CREATININE FOR GFR 0.64 MG/DL (0.55-1.30); GLOMERULAR FILTRATION RATE > 60.0 (>60); GLUCOSE, FASTING 216 MG/DL (70-100); POTASSIUM SERUM 3.9 MEQ/L (3.5-5.1); SODIUM LEVEL 138 MEQ/L (136-145)
[2017-12-07] MEDS: MONTELUKAST 10 MG TAB PO (08:43)
[2017-12-07] MEDS: FLUoxetine 20 MG CAP PO (08:43)
[2017-12-07] MEDS: CETIRIZINE (ZyrTEC) 10 MG TAB PO (08:43)
[2017-12-07] MEDS: OMEPRAZOLE 20 MG CAP PO (08:43)
[2017-12-07] MEDS ORDERED: ADDERALL 5 MG TAB PO (09:00)
[2017-12-07] MEDS ORDERED: predniSONE 20 MG TAB PO (09:00)
[2017-12-07] MEDS: ALBUTEROL SULFATE 2.5 MG/0.5 ML INH NEB SOLN NEB ×3 (09:02→20:33)
[2017-12-07] MEDS: AMPHETAMINE/DEXTROAMPHETAMINE 5 MG *ER* CAPSULE (ADDERALL XR) PO (09:32)
[2017-12-07] MEDS: ADDERALL 5 MG TAB PO (09:32)
[2017-12-07] MEDS: NICOTINE 14 MG/24 HR TRANSDERMAL TD (09:38)
[2017-12-07] MEDS: METHADONE 10 MG TAB (S0109) PO (13:00)
[2017-12-07] MEDS ORDERED: FORMOTEROL FUMARATE 20 MCG/2 ML INHALATION SOLUTION (PERFOROMIST) INH (14:30)
[2017-12-07] MEDS: methylPREDNISolone INJ 40 MG/1 ML VIAL (J2920) IV (16:31)
[2017-12-07] MEDS: FORMOTEROL FUMARATE 20 MCG/2 ML INHALATION SOLUTION (PERFOROMIST) INH (20:00)
[2017-12-07] MEDS: BUDESONIDE 0.5 MG/2 ML INHALATION SUSPENSION INH (20:33)
[2017-12-07] MEDS: CYCLOBENZAPRINE 10 MG TAB PO (22:02)
[2017-12-08] MEDS: methylPREDNISolone INJ 40 MG/1 ML VIAL (J2920) IV ×3 (00:10→15:56)
[2017-12-08] MEDS: HEPARIN SOD (PORCINE) 5000 UNITS/ML VIAL SC ×3 (06:32→23:16)
[2017-12-08] MEDS: ALBUTEROL SULFATE 2.5 MG/0.5 ML INH NEB SOLN NEB ×3 (08:00→20:00)
[2017-12-08] MEDS: BUDESONIDE 0.5 MG/2 ML INHALATION SUSPENSION INH ×2 (08:02→20:00)
[2017-12-08] MEDS: FORMOTEROL FUMARATE 20 MCG/2 ML INHALATION SOLUTION (PERFOROMIST) INH ×2 (08:03→20:00)
[2017-12-08 08:34] LABS: BASO % 0.1 % (0.0-1.0); HEMATOCRIT 36.2 % (36.0-47.0); HEMOGLOBIN 11.4 g/dl (12.0-15.5); IMMATURE GRANULOCYTE % 1.4 % (0-3.0); LYMPH % 4.1 % (24.0-44.0); MEAN CORPUSCULAR HEMOGLOBIN 28.6 pg (27.0-33.0); MEAN CORPUSCULAR HGB CONC 31.5 g/dl (32.0-36.5); MEAN CORPUSCULAR VOLUME 90.7 fl (80.0-96.0); MONO # 0.8 10^3/uL (0.0-0.8); MONO % 3.3 % (0.0-5.0); NEUTROPHILS # 22.3 10^3/uL (1.8-7.7); NEUTROPHILS % 91.1 % (36.0-66.0); PLATELET COUNT, AUTOMATED 254 10^3/uL (150-450); RED BLOOD COUNT 3.99 10^6/uL (4.00-5.40); RED CELL DISTRIBUTION WIDTH 14.5 % (11.5-14.5); WHITE BLOOD COUNT 24.5 10^3/uL (4.0-10.0)
[2017-12-08] MEDS: METHADONE 10 MG TAB (S0109) PO (09:19)
[2017-12-08] MEDS: FLUoxetine 20 MG CAP PO (09:20)
[2017-12-08] MEDS: MONTELUKAST 10 MG TAB PO (09:20)
[2017-12-08] MEDS: CETIRIZINE (ZyrTEC) 10 MG TAB PO (09:20)
[2017-12-08] MEDS: OMEPRAZOLE 20 MG CAP PO (09:20)
[2017-12-08 09:21] LABS: ALBUMIN/GLOBULIN RATIO 0.79 (1.00-1.93); ALKALINE PHOSPHATASE 87 U/L (45-117); ALT/SGPT 25 U/L (12-78); ANION GAP 5 MEQ/L (8-16); AST/SGOT 11 U/L (7-37); BILIRUBIN,TOTAL 0.2 MG/DL (0.2-1.0); BLOOD UREA NITROGEN 13 MG/DL (7-18); CALCIUM LEVEL 9.2 MG/DL (8.5-10.1); CARBON DIOXIDE LEVEL 27 MEQ/L (21-32); CHLORIDE LEVEL 105 MEQ/L (98-107); CREATININE FOR GFR 0.48 MG/DL (0.55-1.30); GLOMERULAR FILTRATION RATE > 60.0 (>60); GLUCOSE, FASTING 120 MG/DL (70-100); POTASSIUM SERUM 4.7 MEQ/L (3.5-5.1); SODIUM LEVEL 137 MEQ/L (136-145); TOTAL PROTEIN 6.8 GM/DL (6.4-8.2)
[2017-12-08] MEDS: AMPHETAMINE/DEXTROAMPHETAMINE 5 MG *ER* CAPSULE (ADDERALL XR) PO (09:50)
[2017-12-08] MEDS: ADDERALL 5 MG TAB PO (14:00)
[2017-12-08] MEDS: cefTRIAXone SOD 1 GM in D5W MINI-BAG PLUS 50 ML IV (14:01)
[2017-12-08] MEDS: DOXYCYCLINE HYCLATE 100 MG in D5W MINI-BAG PLUS 100 ML IV (14:39)
[2017-12-08] MEDS: NICOTINE 21MG/24HR 1 EA TRANSDERMAL TD (18:15)
[2017-12-08] MEDS: CYCLOBENZAPRINE 10 MG TAB PO (23:16)
[2017-12-09] MEDS: ALBUTEROL SULFATE 2.5 MG/0.5 ML INH NEB SOLN NEB ×3 (01:38→13:49)
[2017-12-09] MEDS: HEPARIN SOD (PORCINE) 5000 UNITS/ML VIAL SC ×2 (05:51→14:03)
[2017-12-09 07:19] LABS: HEMATOCRIT 35.8 % (36.0-47.0); HEMOGLOBIN 11.4 g/dl (12.0-15.5); MEAN CORPUSCULAR HEMOGLOBIN 28.8 pg (27.0-33.0); MEAN CORPUSCULAR HGB CONC 31.8 g/dl (32.0-36.5); MEAN CORPUSCULAR VOLUME 90.4 fl (80.0-96.0); PLATELET COUNT, AUTOMATED 269 10^3/uL (150-450); RED BLOOD COUNT 3.96 10^6/uL (4.00-5.40); RED CELL DISTRIBUTION WIDTH 14.8 % (11.5-14.5); WHITE BLOOD COUNT 21.4 10^3/uL (4.0-10.0)
[2017-12-09 07:45] LABS: ANION GAP 6 MEQ/L (8-16); BLOOD UREA NITROGEN 16 MG/DL (7-18); CALCIUM LEVEL 8.6 MG/DL (8.5-10.1); CARBON DIOXIDE LEVEL 28 MEQ/L (21-32); CHLORIDE LEVEL 103 MEQ/L (98-107); CREATININE FOR GFR 0.59 MG/DL (0.55-1.30); GLOMERULAR FILTRATION RATE > 60.0 (>60); GLUCOSE, FASTING 88 MG/DL (70-100); POTASSIUM SERUM 4.5 MEQ/L (3.5-5.1); SODIUM LEVEL 137 MEQ/L (136-145)
[2017-12-09 08:41] LABS: C REACTIVE PROTEIN QUANTITATIV 5.56 MG/DL (0.00-0.30)
[2017-12-09] MEDS: BUDESONIDE 0.5 MG/2 ML INHALATION SUSPENSION INH (08:42)
[2017-12-09] MEDS: FORMOTEROL FUMARATE 20 MCG/2 ML INHALATION SOLUTION (PERFOROMIST) INH (08:42)
[2017-12-09] MEDS: DOXYCYCLINE HYCLATE 100 MG TAB PO (10:40)
[2017-12-09] MEDS: METHADONE 10 MG TAB (S0109) PO (10:41)
[2017-12-09] MEDS: CETIRIZINE (ZyrTEC) 10 MG TAB PO (10:41)
[2017-12-09] MEDS: MONTELUKAST 10 MG TAB PO (10:41)
[2017-12-09] MEDS: predniSONE 20 MG TAB PO (10:41)
[2017-12-09] MEDS: ADDERALL 5 MG TAB PO (10:42)
[2017-12-09] MEDS: OMEPRAZOLE 20 MG CAP PO (10:42)
[2017-12-09] MEDS: AMPHETAMINE/DEXTROAMPHETAMINE 5 MG *ER* CAPSULE (ADDERALL XR) PO (10:42)
[2017-12-09] MEDS: FLUoxetine 20 MG CAP PO (10:42)
[2017-12-09] MEDS: NICOTINE 21MG/24HR 1 EA TRANSDERMAL TD (10:43)
[2017-12-09 12:16] LABS: HEMATOCRIT 36.1 % (36.0-47.0); HEMOGLOBIN 11.7 g/dl (12.0-15.5); MEAN CORPUSCULAR HEMOGLOBIN 28.8 pg (27.0-33.0); MEAN CORPUSCULAR HGB CONC 32.4 g/dl (32.0-36.5); MEAN CORPUSCULAR VOLUME 88.9 fl (80.0-96.0); PLATELET COUNT, AUTOMATED 263 10^3/uL (150-450); RED BLOOD COUNT 4.06 10^6/uL (4.00-5.40); RED CELL DISTRIBUTION WIDTH 14.8 % (11.5-14.5); WHITE BLOOD COUNT 18.7 10^3/uL (4.0-10.0)
[2017-12-09] MEDS: CEFDINIR 300 MG CAP (OMNICEF) PO (13:01)
== END 2017-12-09 14:30 | disposition home or self-care (01) | DRG 141 ==
LOC: M MS4PR 12-07 18:00 → M MS5PR 12-08 18:37 → M ED 20:49 → M ED INP 23:23
DX: J45.901 Unspecified asthma with (acute) exacerbation (principal); B97.0 Adenovirus as the cause of diseases classified elsewhere; Z72.0 Tobacco use; D72.829 Elevated white blood cell count, unspecified; K21.9 Gastro-esophageal reflux disease without esophagitis; M79.7 Fibromyalgia; F32.9 Major depressive disorder, single episode, unspecified; F41.9 Anxiety disorder, unspecified; Z79.899 Other long term (current) drug therapy; Z88.8 Allergy status to other drugs, medicaments and biological substances

== ENCOUNTER → 2017-12-06 | Outpatient (REF) | payer OTHER ==
[2017-12-06 22:27] LABS: INFLUENZA A AMPLIFICATION NEGATIVE (NEGATIVE); INFLUENZA B AMPLIFICATION NEGATIVE (NEGATIVE)
== END ==
LOC: M LAB REF 21:43
DX: Z11.59 Encounter for screening for other viral diseases (principal)
CPT/HCPCS: 87502

== ENCOUNTER 2017-12-20 10:55 | Inpatient (IN) | payer OTHER ==
[2017-12-20 11:36] LABS: BASO % 0.2 % (0.0-1.0); EOS % 0.1 % (0.0-3.0); HEMATOCRIT 38.1 % (36.0-47.0); HEMOGLOBIN 12.1 g/dl (12.0-15.5); IMMATURE GRANULOCYTE % 1.3 % (0-3.0); LYMPH # 0.9 10^3/uL (1.5-4.5); LYMPH % 3.9 % (24.0-44.0); MEAN CORPUSCULAR HEMOGLOBIN 28.9 pg (27.0-33.0); MEAN CORPUSCULAR HGB CONC 31.8 g/dl (32.0-36.5); MEAN CORPUSCULAR VOLUME 90.9 fl (80.0-96.0); MONO # 0.1 10^3/uL (0.0-0.8); MONO % 0.2 % (0.0-5.0); NEUTROPHILS # 21.8 10^3/uL (1.8-7.7); NEUTROPHILS % 94.3 % (36.0-66.0); PLATELET COUNT, AUTOMATED 204 10^3/uL (150-450); RED BLOOD COUNT 4.19 10^6/uL (4.00-5.40); RED CELL DISTRIBUTION WIDTH 14.9 % (11.5-14.5); WHITE BLOOD COUNT 23.1 10^3/uL (4.0-10.0)
[2017-12-20] MEDS: ACETAMINOPHEN TAB 650MG DOSE (2X325MG) PO (12:00)
[2017-12-20 12:14] LABS: LACTIC ACID SEPSIS PROTOCOL 2.5 MMOL/L (0.4-2.0)
[2017-12-20] MEDS: NS 1,000 ML IV ×4 (12:30→22:15)
[2017-12-20 13:29] LABS: ABG BASE EXCESS -2.1 (-2.0-2.0); ABG HCO3 23.5 MEQ/L (22.0-26.0); ABG O2 SATURATION 94.4 % (95.0-99.0); ABG PARTIAL PRESSURE CO2 43.3 mmHg (35.0-45.0); ABG PARTIAL PRESSURE O2 71.1 mmHg (75.0-100.0); ABG STANDARD HCO3 22.6 MEQ/L (22.0-26.0); ABG TOTAL CO2 24.8 MEQ/L (22.0-29.0); ABG pH (ARTERIAL) 7.352 UNITS (7.350-7.450)
[2017-12-20 15:58] LABS: ALBUMIN 2.8 GM/DL (3.2-5.2); ALBUMIN/GLOBULIN RATIO 0.93 (1.00-1.93); ALKALINE PHOSPHATASE 122 U/L (45-117); ALT/SGPT 180 U/L (12-78); ANION GAP 9 MEQ/L (8-16); AST/SGOT 200 U/L (7-37); BILIRUBIN,DIRECT 0.9 MG/DL (0.0-0.2); BILIRUBIN,TOTAL 1.2 MG/DL (0.2-1.0); BLOOD UREA NITROGEN 15 MG/DL (7-18); CALCIUM LEVEL 7.8 MG/DL (8.5-10.1); CARBON DIOXIDE LEVEL 23 MEQ/L (21-32); CHLORIDE LEVEL 104 MEQ/L (98-107); CREATININE FOR GFR 0.85 MG/DL (0.55-1.30); GLOMERULAR FILTRATION RATE > 60.0 (>60); GLUCOSE, FASTING 72 MG/DL (70-100); LIPASE 177 U/L (73-393); POTASSIUM SERUM 3.9 MEQ/L (3.5-5.1); SODIUM LEVEL 136 MEQ/L (136-145); TOTAL PROTEIN 5.8 GM/DL (6.4-8.2)
[2017-12-20] MEDS ORDERED: ISOVUE-370 76% 100ML VIAL (Q9967) As Ordered (16:03)
[2017-12-20 16:09] LABS: CONTROL LINE HCG INT CTR LINE PRESENT; HCG, SERUM QUALITATIVE NEGATIVE (NEGATIVE)
[2017-12-20] MEDS ORDERED: NS 1,980 ML in APPROPRIATE DILUENT 1 EA IV (16:45)
[2017-12-20] MEDS: PIPERACILLIN/TAZOBACTAM SOD 4.5 GM in D5W MINI-BAG PLUS 50 ML IV (18:00)
[2017-12-20] MEDS ORDERED: ONDANSETRON 4MG/2ML VIAL (J2405) IV (18:00)
[2017-12-20 18:38] LABS: KETONE, URINE AUTO RFX NEGATIVE (NEGATIVE); LEUKOCYTE ESTERASE UR AUTO RFX NEGATIVE (NEGATIVE); NITRITE, URINE AUTO RFX NEGATIVE (NEGATIVE); RBC, URINE AUTO RFX 0 /HPF (0-3); SPECIFIC GRAVITY UR AUTO RFX 1.025 (1.002-1.035); SQUAM EPITHELIAL CELL UR AURFX 1 /HPF (0-6); WBC, URINE AUTO RFX 1 /HPF (0-3)
[2017-12-20 18:43] LABS: ERYTHROCYTE SEDIMENTATION RATE 7 mm/hr (0-20)
[2017-12-20] MEDS: METHADONE 10 MG TAB (S0109) PO (18:53)
[2017-12-20 19:02] LABS: AMPHETAMINES LEVEL URINE POSITIVE (NEGATIVE); BARBITURATES URINE NEGATIVE (NEGATIVE); BENZODIAZEPINES URINE NEGATIVE (NEGATIVE); CANNABINOIDS URINE NEGATIVE (NEGATIVE); COCAINE METABOLITE URINE POSITIVE (NEGATIVE); METHADONE URINE POSITIVE (NEGATIVE); OPIATES URINE POSITIVE (NEGATIVE); PHENCYCLIDINE URINE NEGATIVE (NEGATIVE)
[2017-12-20] MEDS: IPRATROPIUM 0.5MG/ALBUTEROL 2.5MG INH SOL UD 3ML (DUONEB)(J7620) NEB ×2 (19:43→23:28)
[2017-12-20] MEDS: VANCOMYCIN HCL 1,000 MG, VIAL MATE ADAPTER 1 EACH in D5W 250 ML IV (19:49)
[2017-12-20 20:02] LABS: C REACTIVE PROTEIN QUANTITATIV 3.28 MG/DL (0.00-0.30)
[2017-12-20] MEDS: ADVAIR HFA 230/21MCG INHALER INH (21:00)
[2017-12-20 22:17] LABS: BEDSIDE GLUCOSE 78 MG/DL (70-105)
[2017-12-20] MEDS: NICOTINE 14 MG/24 HR TRANSDERMAL TD (22:44)
[2017-12-20] MEDS: methylPREDNISolone INJ 40 MG/1 ML VIAL (J2920) IV (22:45)
[2017-12-20 22:59] LABS: BEDSIDE GLUCOSE 78 MG/DL (70-105)
[2017-12-20] MEDS: KCL 20MEQ in NS 1000ML 1,000 ML IV (23:35)
[2017-12-20 23:49] LABS: BEDSIDE GLUCOSE 105 MG/DL (70-105)
[2017-12-21] MEDS: PIPERACILLIN/TAZOBACTAM SOD 4.5 GM in D5W MINI-BAG PLUS 50 ML IV ×4 (01:27→17:44)
[2017-12-21] MEDS: VANCOMYCIN HCL 1,000 MG, VIAL MATE ADAPTER 1 EACH in D5W 250 ML IV ×2 (02:00→15:12)
[2017-12-21] MEDS: IPRATROPIUM 0.5MG/ALBUTEROL 2.5MG INH SOL UD 3ML (DUONEB)(J7620) NEB ×7 (02:22→23:40)
[2017-12-21 05:42] LABS: BASO % 0.1 % (0.0-1.0); HEMATOCRIT 34.9 % (36.0-47.0); HEMOGLOBIN 11.1 g/dl (12.0-15.5); LYMPH # 0.4 10^3/uL (1.5-4.5); LYMPH % 1.3 % (24.0-44.0); MEAN CORPUSCULAR HEMOGLOBIN 28.8 pg (27.0-33.0); MEAN CORPUSCULAR HGB CONC 31.8 g/dl (32.0-36.5); MEAN CORPUSCULAR VOLUME 90.4 fl (80.0-96.0); MONO # 0.2 10^3/uL (0.0-0.8); MONO % 0.7 % (0.0-5.0); NEUTROPHILS % 96.9 % (36.0-66.0); PLATELET COUNT, AUTOMATED 170 10^3/uL (150-450); RED BLOOD COUNT 3.86 10^6/uL (4.00-5.40); RED CELL DISTRIBUTION WIDTH 15.3 % (11.5-14.5); WHITE BLOOD COUNT 29.1 10^3/uL (4.0-10.0)
[2017-12-21 06:10] LABS: ALBUMIN 2.5 GM/DL (3.2-5.2); ALBUMIN/GLOBULIN RATIO 0.74 (1.00-1.93); ALKALINE PHOSPHATASE 85 U/L (45-117); ALT/SGPT 133 U/L (12-78); ANION GAP 5 MEQ/L (8-16); AST/SGOT 87 U/L (7-37); BILIRUBIN,TOTAL 0.7 MG/DL (0.2-1.0); BLOOD UREA NITROGEN 7 MG/DL (7-18); CARBON DIOXIDE LEVEL 25 MEQ/L (21-32); CHLORIDE LEVEL 111 MEQ/L (98-107); CREATININE FOR GFR 0.72 MG/DL (0.55-1.30); GLOMERULAR FILTRATION RATE > 60.0 (>60); GLUCOSE, FASTING 132 MG/DL (70-100); POTASSIUM SERUM 4.6 MEQ/L (3.5-5.1); SODIUM LEVEL 141 MEQ/L (136-145); TOTAL PROTEIN 5.9 GM/DL (6.4-8.2)
[2017-12-21 06:12] LABS: NEUTROPHILS # 28.2 10^3/uL (1.8-7.7); POSITIVE DIFF POS FLAG
[2017-12-21 06:24] LABS: BEDSIDE GLUCOSE 111 MG/DL (70-105)
[2017-12-21] MEDS: TIOTROPIUM INHALER/CAPSULE (SPIRIVA) INH (07:36)
[2017-12-21] MEDS: ADVAIR HFA 230/21MCG INHALER INH ×2 (07:36→20:31)
[2017-12-21 08:54] LABS: LACTIC ACID SEPSIS PROTOCOL 2.6 MMOL/L (0.4-2.0)
[2017-12-21] MEDS: AMPHETAMINE/DEXTROAMPHETAMINE 5 MG *ER* CAPSULE (ADDERALL XR) PO (08:57)
[2017-12-21] MEDS: ADDERALL 5 MG TAB PO (08:58)
[2017-12-21] MEDS: ENOXAPARIN 40 MG/0.4 ML SYRINGE (J1650) SC (08:58)
[2017-12-21] MEDS: NS 1,000 ML IV ×3 (08:59→23:40)
[2017-12-21] MEDS: methylPREDNISolone INJ 40 MG/1 ML VIAL (J2920) IV ×2 (08:59→20:00)
[2017-12-21] MEDS: METHADONE 10 MG TAB (S0109) PO (09:01)
[2017-12-21] MEDS: FLUoxetine 20 MG CAP PO (09:01)
[2017-12-21] MEDS: NICOTINE 14 MG/24 HR TRANSDERMAL TD (09:02)
[2017-12-21] MEDS: CETIRIZINE (ZyrTEC) 10 MG TAB PO (09:02)
[2017-12-21] MEDS: MONTELUKAST 10 MG TAB PO (09:02)
[2017-12-21] MEDS: OMEPRAZOLE 20 MG CAP PO (09:02)
[2017-12-21] MEDS: SODIUM CHLORIDE 0.9% 1000ML IV (09:07)
[2017-12-21 09:58] LABS: HEPATITIS B SURFACE ANTIGEN NEGATIVE (NEGATIVE)
[2017-12-21 10:26] LABS: HEPATITIS B CORE ANTIBODY IGM NEGATIVE (NEGATIVE)
[2017-12-21 10:27] LABS: HEPATITIS A ANTIBODY IGM NEGATIVE (NEGATIVE)
[2017-12-21 10:49] LABS: HEPATITIS C VIRUS ABY INDEX > 11.0 INDEX (<0.8)
[2017-12-21 16:14] LABS: ESTIMATED AVERAGE GLUCOSE 120 MG/DL (60-110); HEMOGLOBIN A1c 5.8 %
[2017-12-21] MEDS ORDERED: ISOVUE-370 76% 100ML VIAL (Q9967) As Ordered (16:47)
[2017-12-22] MEDS: VANCOMYCIN HCL 1,000 MG, VIAL MATE ADAPTER 1 EACH in D5W 250 ML IV ×3 (02:00→22:00)
[2017-12-22] MEDS: IPRATROPIUM 0.5MG/ALBUTEROL 2.5MG INH SOL UD 3ML (DUONEB)(J7620) NEB ×6 (04:00→20:00)
[2017-12-22] MEDS: PIPERACILLIN/TAZOBACTAM SOD 4.5 GM in D5W MINI-BAG PLUS 50 ML IV ×4 (05:45→17:35)
[2017-12-22 06:02] LABS: BASO % 0.1 % (0.0-1.0); HEMATOCRIT 32.9 % (36.0-47.0); HEMOGLOBIN 10.4 g/dl (12.0-15.5); IMMATURE GRANULOCYTE % 1.8 % (0-3.0); LYMPH % 3.7 % (24.0-44.0); MEAN CORPUSCULAR HEMOGLOBIN 28.7 pg (27.0-33.0); MEAN CORPUSCULAR HGB CONC 31.6 g/dl (32.0-36.5); MEAN CORPUSCULAR VOLUME 90.6 fl (80.0-96.0); MONO # 1.5 10^3/uL (0.0-0.8); MONO % 5.7 % (0.0-5.0); NEUTROPHILS # 23.8 10^3/uL (1.8-7.7); NEUTROPHILS % 88.7 % (36.0-66.0); PLATELET COUNT, AUTOMATED 146 10^3/uL (150-450); RED BLOOD COUNT 3.63 10^6/uL (4.00-5.40); RED CELL DISTRIBUTION WIDTH 15.5 % (11.5-14.5); WHITE BLOOD COUNT 26.8 10^3/uL (4.0-10.0)
[2017-12-22 06:42] LABS: ALBUMIN 2.7 GM/DL (3.2-5.2); ALBUMIN/GLOBULIN RATIO 0.69 (1.00-1.93); ALKALINE PHOSPHATASE 87 U/L (45-117); ALT/SGPT 110 U/L (12-78); ANION GAP 6 MEQ/L (8-16); AST/SGOT 36 U/L (7-37); BILIRUBIN,TOTAL 0.3 MG/DL (0.2-1.0); BLOOD UREA NITROGEN 8 MG/DL (7-18); C REACTIVE PROTEIN QUANTITATIV 7.91 MG/DL (0.00-0.30); CALCIUM LEVEL 8.5 MG/DL (8.5-10.1); CARBON DIOXIDE LEVEL 24 MEQ/L (21-32); CHLORIDE LEVEL 109 MEQ/L (98-107); CREATININE FOR GFR 0.64 MG/DL (0.55-1.30); GLOMERULAR FILTRATION RATE > 60.0 (>60); GLUCOSE, FASTING 156 MG/DL (70-100); POTASSIUM SERUM 4.4 MEQ/L (3.5-5.1); SODIUM LEVEL 139 MEQ/L (136-145); TOTAL PROTEIN 6.6 GM/DL (6.4-8.2)
[2017-12-22] MEDS: TIOTROPIUM INHALER/CAPSULE (SPIRIVA) INH (07:35)
[2017-12-22] MEDS: ADVAIR HFA 230/21MCG INHALER INH ×2 (07:35→20:45)
[2017-12-22] MEDS: methylPREDNISolone INJ 40 MG/1 ML VIAL (J2920) IV ×3 (08:50→22:00)
[2017-12-22] MEDS: AMPHETAMINE/DEXTROAMPHETAMINE 5 MG *ER* CAPSULE (ADDERALL XR) PO (08:51)
[2017-12-22] MEDS: NICOTINE 14 MG/24 HR TRANSDERMAL TD (08:51)
[2017-12-22] MEDS: OMEPRAZOLE 20 MG CAP PO (08:52)
[2017-12-22] MEDS: ADDERALL 5 MG TAB PO (08:52)
[2017-12-22] MEDS: FLUoxetine 20 MG CAP PO (08:52)
[2017-12-22] MEDS: MONTELUKAST 10 MG TAB PO (08:52)
[2017-12-22] MEDS: CETIRIZINE (ZyrTEC) 10 MG TAB PO (08:53)
[2017-12-22] MEDS: METHADONE 10 MG TAB (S0109) PO (08:56)
[2017-12-22] MEDS: ENOXAPARIN 40 MG/0.4 ML SYRINGE (J1650) SC (08:57)
[2017-12-22 10:00] LABS: ABG BASE EXCESS -0.7 (-2.0-2.0); ABG HCO3 24.6 MEQ/L (22.0-26.0); ABG O2 SATURATION 96.7 % (95.0-99.0); ABG PARTIAL PRESSURE CO2 43.6 mmHg (35.0-45.0); ABG PARTIAL PRESSURE O2 79.4 mmHg (75.0-100.0); ABG STANDARD HCO3 23.8 MEQ/L (22.0-26.0)
[2017-12-22] MEDS: FUROSEMIDE 40 MG/4 ML VIAL (J1940) IV (10:06)
[2017-12-22 13:48] LABS: VANCOMYCIN LEVEL TROUGH 4.9 UG/ML (10.0-20.0)
[2017-12-23] MEDS: PIPERACILLIN/TAZOBACTAM SOD 4.5 GM in D5W MINI-BAG PLUS 50 ML IV ×4 (00:22→18:18)
[2017-12-23] MEDS: methylPREDNISolone INJ 40 MG/1 ML VIAL (J2920) IV ×3 (02:38→20:48)
[2017-12-23] MEDS: IPRATROPIUM 0.5MG/ALBUTEROL 2.5MG INH SOL UD 3ML (DUONEB)(J7620) NEB ×6 (04:00→20:00)
[2017-12-23 06:08] LABS: BASO % 0.2 % (0.0-1.0); HEMATOCRIT 36.2 % (36.0-47.0); HEMOGLOBIN 11.6 g/dl (12.0-15.5); IMMATURE GRANULOCYTE % 1.9 % (0-3.0); LYMPH # 1.1 10^3/uL (1.5-4.5); LYMPH % 5.5 % (24.0-44.0); MEAN CORPUSCULAR HEMOGLOBIN 28.8 pg (27.0-33.0); MEAN CORPUSCULAR VOLUME 89.8 fl (80.0-96.0); MONO # 0.5 10^3/uL (0.0-0.8); MONO % 2.7 % (0.0-5.0); NEUTROPHILS # 17.9 10^3/uL (1.8-7.7); NEUTROPHILS % 89.7 % (36.0-66.0); PLATELET COUNT, AUTOMATED 187 10^3/uL (150-450); RED BLOOD COUNT 4.03 10^6/uL (4.00-5.40); RED CELL DISTRIBUTION WIDTH 15.7 % (11.5-14.5)
[2017-12-23] MEDS: VANCOMYCIN HCL 1,000 MG, VIAL MATE ADAPTER 1 EACH in D5W 250 ML IV (06:20)
[2017-12-23 06:28] LABS: ALBUMIN 3.1 GM/DL (3.2-5.2); ALBUMIN/GLOBULIN RATIO 0.74 (1.00-1.93); ALKALINE PHOSPHATASE 90 U/L (45-117); ALT/SGPT 94 U/L (12-78); ANION GAP 7 MEQ/L (8-16); AST/SGOT 16 U/L (7-37); BILIRUBIN,TOTAL 0.3 MG/DL (0.2-1.0); BLOOD UREA NITROGEN 10 MG/DL (7-18); C REACTIVE PROTEIN QUANTITATIV 3.97 MG/DL (0.00-0.30); CALCIUM LEVEL 9.1 MG/DL (8.5-10.1); CARBON DIOXIDE LEVEL 26 MEQ/L (21-32); CHLORIDE LEVEL 105 MEQ/L (98-107); GLOMERULAR FILTRATION RATE > 60.0 (>60); GLUCOSE, FASTING 105 MG/DL (70-100); POTASSIUM SERUM 4.2 MEQ/L (3.5-5.1); SODIUM LEVEL 138 MEQ/L (136-145); TOTAL PROTEIN 7.3 GM/DL (6.4-8.2)
[2017-12-23] MEDS: TIOTROPIUM INHALER/CAPSULE (SPIRIVA) INH (07:33)
[2017-12-23] MEDS: ADVAIR HFA 230/21MCG INHALER INH ×2 (07:35→21:00)
[2017-12-23] MEDS: NICOTINE 14 MG/24 HR TRANSDERMAL TD (08:00)
[2017-12-23] MEDS: ENOXAPARIN 40 MG/0.4 ML SYRINGE (J1650) SC (08:00)
[2017-12-23] MEDS: FLUoxetine 20 MG CAP PO (08:01)
[2017-12-23] MEDS: OMEPRAZOLE 20 MG CAP PO (08:01)
[2017-12-23] MEDS: CETIRIZINE (ZyrTEC) 10 MG TAB PO (08:01)
[2017-12-23] MEDS: MONTELUKAST 10 MG TAB PO (08:01)
[2017-12-23] MEDS: METHADONE 10 MG TAB (S0109) PO (08:01)
[2017-12-23] MEDS: ADDERALL 5 MG TAB PO (08:12)
[2017-12-23] MEDS: AMPHETAMINE/DEXTROAMPHETAMINE 5 MG *ER* CAPSULE (ADDERALL XR) PO (09:27)
[2017-12-23] MEDS: LACTOBACILLUS ACIDOPHILUS CAP (BACID) PO (18:18)
[2017-12-24] MEDS: PIPERACILLIN/TAZOBACTAM SOD 4.5 GM in D5W MINI-BAG PLUS 50 ML IV ×2 (01:04→05:30)
[2017-12-24] MEDS: IPRATROPIUM 0.5MG/ALBUTEROL 2.5MG INH SOL UD 3ML (DUONEB)(J7620) NEB ×3 (04:00→07:48)
[2017-12-24 04:51] LABS: BASO % 0.2 % (0.0-1.0); HEMATOCRIT 37.8 % (36.0-47.0); HEMOGLOBIN 12.2 g/dl (12.0-15.5); LYMPH # 1.6 10^3/uL (1.5-4.5); LYMPH % 9.5 % (24.0-44.0); MEAN CORPUSCULAR HEMOGLOBIN 28.3 pg (27.0-33.0); MEAN CORPUSCULAR HGB CONC 32.3 g/dl (32.0-36.5); MEAN CORPUSCULAR VOLUME 87.7 fl (80.0-96.0); MONO # 0.8 10^3/uL (0.0-0.8); MONO % 4.8 % (0.0-5.0); NEUTROPHILS # 13.8 10^3/uL (1.8-7.7); NEUTROPHILS % 83.5 % (36.0-66.0); PLATELET COUNT, AUTOMATED 206 10^3/uL (150-450); RED BLOOD COUNT 4.31 10^6/uL (4.00-5.40); RED CELL DISTRIBUTION WIDTH 15.6 % (11.5-14.5); WHITE BLOOD COUNT 16.5 10^3/uL (4.0-10.0)
[2017-12-24 05:13] LABS: ALBUMIN/GLOBULIN RATIO 0.75 (1.00-1.93); ALKALINE PHOSPHATASE 85 U/L (45-117); ALT/SGPT 65 U/L (12-78); ANION GAP 6 MEQ/L (8-16); AST/SGOT 10 U/L (7-37); BILIRUBIN,TOTAL 0.3 MG/DL (0.2-1.0); BLOOD UREA NITROGEN 14 MG/DL (7-18); C REACTIVE PROTEIN QUANTITATIV 1.91 MG/DL (0.00-0.30); CALCIUM LEVEL 8.8 MG/DL (8.5-10.1); CARBON DIOXIDE LEVEL 28 MEQ/L (21-32); CHLORIDE LEVEL 104 MEQ/L (98-107); CREATININE FOR GFR 0.58 MG/DL (0.55-1.30); GLOMERULAR FILTRATION RATE > 60.0 (>60); GLUCOSE, FASTING 130 MG/DL (70-100); POTASSIUM SERUM 4.2 MEQ/L (3.5-5.1); SODIUM LEVEL 138 MEQ/L (136-145)
[2017-12-24] MEDS: TIOTROPIUM INHALER/CAPSULE (SPIRIVA) INH (07:47)
[2017-12-24] MEDS: ADVAIR HFA 230/21MCG INHALER INH (07:48)
[2017-12-24] MEDS: LACTOBACILLUS ACIDOPHILUS CAP (BACID) PO (08:53)
[2017-12-24] MEDS: OMEPRAZOLE 20 MG CAP PO (08:53)
[2017-12-24] MEDS: methylPREDNISolone INJ 40 MG/1 ML VIAL (J2920) IV (08:53)
[2017-12-24] MEDS: AMPHETAMINE/DEXTROAMPHETAMINE 5 MG *ER* CAPSULE (ADDERALL XR) PO (08:54)
[2017-12-24] MEDS: ADDERALL 5 MG TAB PO (08:54)
[2017-12-24] MEDS: CETIRIZINE (ZyrTEC) 10 MG TAB PO (08:55)
[2017-12-24] MEDS: FLUoxetine 20 MG CAP PO (08:55)
[2017-12-24] MEDS: METHADONE 10 MG TAB (S0109) PO (08:55)
[2017-12-24] MEDS: MONTELUKAST 10 MG TAB PO (08:56)
[2017-12-24] MEDS: ENOXAPARIN 40 MG/0.4 ML SYRINGE (J1650) SC (08:56)
[2017-12-24] MEDS: NICOTINE 14 MG/24 HR TRANSDERMAL TD (09:00)
[2017-12-26 00:08] LABS: ALPHA 2-MACROGLOBULIN 133 mg/dL (110-276); ALT 119 IU/L (0-40); APOLIPOPROTEIN A-1 101 mg/dL (116-209); FIBROSIS SCORE 0.21 (0.00-0.21); GGT 754 IU/L (0-60); HAPTOGLOBIN 194 mg/dL (34-200); HEPATITIS C QUANTITATION HCV Not Detected IU/mL (.); NECROINFLAMM GRADE A2-Moderate activity (.); TOTAL BILIRUBIN 0.3 mg/dL (0.0-1.2)
[2017-12-29 08:06] LABS: HCV RNA NAA QUALITATIVE Negative (Negative)
== END 2017-12-24 11:00 | disposition home or self-care (01) | DRG 776 ==
LOC: M ED 10:55 → M ED INP 19:38 → M PCU 21:48
PROVIDERS: Hospitalist
DX: F15.188 Other stimulant abuse with other stimulant-induced disorder (principal); A41.9 Sepsis, unspecified organism; E87.2 Acidosis; J45.909 Unspecified asthma, uncomplicated; F17.210 Nicotine dependence, cigarettes, uncomplicated; F32.9 Major depressive disorder, single episode, unspecified; F41.9 Anxiety disorder, unspecified; K21.9 Gastro-esophageal reflux disease without esophagitis; F90.9 Attention-deficit hyperactivity disorder, unspecified type; B18.2 Chronic viral hepatitis C; M79.7 Fibromyalgia; G47.00 Insomnia, unspecified; Z79.899 Other long term (current) drug therapy; R19.7 Diarrhea, unspecified

== ENCOUNTER → 2018-01-02 | Outpatient (REF) | payer OTHER ==
[2018-01-02 16:08] LABS: BASO % 0.4 % (0.0-1.0); EOS # 0.2 10^3/uL (0.0-0.50); EOS % 2.8 % (0.0-3.0); HEMATOCRIT 39.1 % (36.0-47.0); HEMOGLOBIN 12.1 g/dl (12.0-15.5); IMMATURE GRANULOCYTE % 0.4 % (0-3.0); LYMPH # 1.6 10^3/uL (1.5-4.5); MEAN CORPUSCULAR HEMOGLOBIN 28.5 pg (27.0-33.0); MEAN CORPUSCULAR HGB CONC 30.9 g/dl (32.0-36.5); MONO # 0.5 10^3/uL (0.0-0.8); MONO % 6.4 % (0.0-5.0); NEUTROPHILS # 4.9 10^3/uL (1.8-7.7); PLATELET COUNT, AUTOMATED 215 10^3/uL (150-450); RED BLOOD COUNT 4.25 10^6/uL (4.00-5.40); RED CELL DISTRIBUTION WIDTH 15.7 % (11.5-14.5); WHITE BLOOD COUNT 7.1 10^3/uL (4.0-10.0)
[2018-01-02 16:43] LABS: ALBUMIN 3.4 GM/DL (3.2-5.2); ALBUMIN/GLOBULIN RATIO 1.06 (1.00-1.93); ALKALINE PHOSPHATASE 104 U/L (45-117); ALT/SGPT 460 U/L (12-78); ANION GAP 7 MEQ/L (8-16); AST/SGOT 224 U/L (7-37); BILIRUBIN,TOTAL 0.4 MG/DL (0.2-1.0); BLOOD UREA NITROGEN 8 MG/DL (7-18); CALCIUM LEVEL 8.7 MG/DL (8.5-10.1); CARBON DIOXIDE LEVEL 31 MEQ/L (21-32); CHLORIDE LEVEL 101 MEQ/L (98-107); GLOMERULAR FILTRATION RATE > 60.0 (>60); GLUCOSE, FASTING 155 MG/DL (70-100); IMMUNOGLOBULIN A 217 MG/DL (70-400); IMMUNOGLOBULIN G 827 MG/DL (681-1648); IMMUNOGLOBULIN M 123 MG/DL (40-230); POTASSIUM SERUM 3.8 MEQ/L (3.5-5.1); SODIUM LEVEL 139 MEQ/L (136-145); TOTAL PROTEIN 6.6 GM/DL (6.4-8.2)
[2018-01-04 11:02] LABS: HIV 1&2 SCREEN CENTAUR NEGATIVE (NEGATIVE)
[2018-01-10 00:31] LABS: HSV TYPE II IgG SPECIFIC 4.13 index (0.00-0.90); HSV-1 DNA Negative (Negative); HSV-2 DNA Negative (Negative); HSV-2 IgG Confirmation Positive (Negative); IgG SERUM (part of Subclasses) 758 mg/dL (700-1600); IgG Subclass 1 457 mg/dL (248-810); IgG Subclass 2 323 mg/dL (130-555); IgG Subclass 3 28 mg/dL (15-102); IgG Subclass 4 4 mg/dL (2-96); STREP PNEUMO TYPE 1 <0.1 ug/mL (>1.3); STREP PNEUMO TYPE 12F <0.1 ug/mL (>1.3); STREP PNEUMO TYPE 14 0.9 ug/mL (>1.3); STREP PNEUMO TYPE 18C 2.4 ug/mL (>1.3); STREP PNEUMO TYPE 19F 0.3 ug/mL (>1.3); STREP PNEUMO TYPE 23F 0.9 ug/mL (>1.3); STREP PNEUMO TYPE 3 1.9 ug/mL (>1.3); STREP PNEUMO TYPE 4 0.2 ug/mL (>1.3); STREP PNEUMO TYPE 6B 11.6 ug/mL (>1.3); STREP PNEUMO TYPE 7F 5.4 ug/mL (>1.3); STREP PNEUMO TYPE 8 4.5 ug/mL (>1.3); STREP PNEUMO TYPE 9N 0.2 ug/mL (>1.3); STREP PNEUMO TYPE 9V 0.3 ug/mL (>1.3)
== END ==
LOC: M SFHCPLAZ 14:19
DX: B99.9 Unspecified infectious disease (principal); K13.70 Unspecified lesions of oral mucosa
CPT/HCPCS: 80053

== ENCOUNTER → 2018-01-02 | Outpatient (REF) | payer OTHER | LOC: M SFHCPLAZ 15:56 | DX: K13.70 Unspecified lesions of oral mucosa (principal) ==

== ENCOUNTER 2018-02-01 16:22 | Emergency (ER) | payer OTHER ==
[~2018-02-01] VITALS: Ht 152.4 cm; Wt 59.1 kg
[~2018-02-01 16:22] MED LIST changes: +ADDE10CA3 PO; +ADDE10TA PO; +ADDE30CA3 PO; +AMOX500T PO; +AMPH20CA PO; +BACT800T5 PO; +BREO1INH3 INH; +CEFD1CAP8 PO; +CEFD300CAP PO; +CEPH500C PO; +CYCL10TA PO; +DOXY100C37 PO; +ERYTOIN8 OD; +FLUO20CA19 PO; +IPRA0.00 IN; +IPRA0.00 INH; -IPRASOL4 IN; +KETO5OPD OD; +MELA10CA PO; +METH10CO PO; +METH10TA2 PO; +METH40TA PO; +MONT10TA2 PO; +NICO21DI31 TD; +NICO21PAT TD; +OMEP20CA3 PO; +PRED10TA2 PO; +SUBO8MIS SL; +TOBR0.3S37 OP; +VENTAER INH
[2018-02-01] MEDS ORDERED: DOXY100C37 PO (18:44)
[2018-02-01] MEDS ORDERED: DOXYCYCLINE HYCLATE 100 MG TAB PO ONE (18:45)
[2018-02-01 18:49] VITALS: BP 132/86
[2018-02-05] MEDS ORDERED: KEFL500C17 PO (13:01)
[2018-02-07] MEDS ORDERED: NORCOTAB PO (14:37)
== END 2018-02-01 19:03 | disposition home or self-care (01) ==
LOC: M ED 16:22
DX: N61.1 Abscess of the breast and nipple (principal); J44.9 Chronic obstructive pulmonary disease, unspecified; J45.909 Unspecified asthma, uncomplicated; K44.9 Diaphragmatic hernia without obstruction or gangrene; K76.89 Other specified diseases of liver; F19.20 Other psychoactive substance dependence, uncomplicated; F43.10 Post-traumatic stress disorder, unspecified; F90.9 Attention-deficit hyperactivity disorder, unspecified type; Z79.899 Other long term (current) drug therapy; Z79.891 Long term (current) use of opiate analgesic; Z88.7 Allergy status to serum and vaccine; F17.210 Nicotine dependence, cigarettes, uncomplicated

== ENCOUNTER 2018-02-28 13:16 | Emergency (ER) | payer OTHER ==
[~2018-02-28] VITALS: Ht 152.4 cm; Wt 56.8 kg
[~2018-02-28 13:16] MED LIST changes: +KEFL500C17 PO; +NORCOTAB PO
[2018-02-28] MEDS ORDERED: predniSONE 20 MG TAB PO ONE (16:30)
[2018-02-28] MEDS ORDERED: IPRATROPIUM 0.5MG/ALBUTEROL 2.5MG INH SOL UD 3ML (DUONEB)(J7620) NEB ONE (16:30)
--- NOTE | 2018-02-28 17:01 | REP ---
Chest two views HISTORY: Wheezing Comparison: 12/22/2017 There is minimal peribronchial cuffing. The heart is normal in size. The pulmonary vasculature is normal in appearance. The bony structure is intact. IMPRESSION: Minimal peribronchial cuffing consistent with asthma or bronchitis. Electronically Signed by David Gamboa MD 02/28/2018 04:52 P
[2018-02-28] MEDS ORDERED: ZITHTAB PO (17:29)
[2018-02-28] MEDS ORDERED: IPRA0.00 NEB (17:29)
[2018-02-28] MEDS ORDERED: VENTAER INH (17:29)
[2018-02-28] MEDS ORDERED: PRED20TA PO (17:29)
[2018-02-28 17:36] VITALS: BP 145/79
--- NOTE | 2018-03-01 17:37 | ECGEPIP ---
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
== END 2018-02-28 17:36 | disposition home or self-care (01) ==
LOC: M ED 13:16
DX: J44.1 Chronic obstructive pulmonary disease with (acute) exacerbation (principal); J45.901 Unspecified asthma with (acute) exacerbation; K21.9 Gastro-esophageal reflux disease without esophagitis; K44.9 Diaphragmatic hernia without obstruction or gangrene; M54.9 Dorsalgia, unspecified; R16.0 Hepatomegaly, not elsewhere classified; B19.20 Unspecified viral hepatitis C without hepatic coma; F19.10 Other psychoactive substance abuse, uncomplicated; F41.9 Anxiety disorder, unspecified; F32.9 Major depressive disorder, single episode, unspecified; F90.9 Attention-deficit hyperactivity disorder, unspecified type; F17.210 Nicotine dependence, cigarettes, uncomplicated; Z79.891 Long term (current) use of opiate analgesic; Z79.899 Other long term (current) drug therapy

== ENCOUNTER → 2018-03-28 | Outpatient (REF) | payer OTHER ==
[~2018-03-28] MED LIST changes: +IPRA0.00 NEB
[2018-03-28 14:47] LABS: APPEARANCE, URINE MANUAL CLEAR (CLEAR); COLOR, URINE MANUAL ORANGE (YELLOW)
[2018-03-28 14:48] LABS: GLUCOSE, URINE (UA) MANUAL OBSCURED mg/dL (NEGATIVE); PROTEIN, URINE MANUAL OBSCURED mg/dL (NEGATIVE)
[2018-03-28 14:49] LABS: BILIRUBIN, URINE MANUAL OBSCURED (NEGATIVE); BLOOD URINE MANUAL OBSCURED (NEGATIVE); KETONE, URINE MANUAL OBSCURED mg/dL (NEGATIVE); LEUKOCYTE ESTERASE, URINE MAN OBSCURED (NEGATIVE); NITRITE, URINE MANUAL OBSCURED (NEGATIVE); UROBILINOGEN, URINE MANUAL OBSCURED mg/dl (NORMAL)
[2018-03-28 14:59] LABS: BACTERIA, URINE MOD AMOUNT; HYALINE CAST, URINE NONE SEEN /lpf (0-1); RBC, URINE 0-1 /hpf (0-3); SQUAMOUS EPITHELIAL CELL URINE MOD AMOUNT /hpf (SMALL AMT)
== END ==
LOC: M LAB REF 14:33
PROVIDERS: ATTEND Physician Assistant Medical
DX: N39.0 Urinary tract infection, site not specified (principal)

== ENCOUNTER → 2018-06-22 | Outpatient (CLI) | payer OTHER ==
[~2018-06-22] MED LIST changes: +HYDR-3715 PO; +KETO0.5S2 OD; -KETO5OPD OD; -NORCOTAB PO
[2018-06-22 14:21] LABS: BASO % 0.5 % (0.0-1.0); EOS # 0.1 10^3/uL (0.0-0.50); EOS % 2.5 % (0.0-3.0); HEMATOCRIT 41.7 % (36.0-47.0); HEMOGLOBIN 13.3 g/dl (12.0-15.5); LYMPH # 2.8 10^3/uL (1.5-4.5); LYMPH % 50.4 % (24.0-44.0); MEAN CORPUSCULAR HEMOGLOBIN 29.6 pg (27.0-33.0); MEAN CORPUSCULAR HGB CONC 31.9 g/dl (32.0-36.5); MEAN CORPUSCULAR VOLUME 92.7 fl (80.0-96.0); MONO # 0.4 10^3/uL (0.0-0.8); MONO % 7.9 % (0.0-5.0); NEUTROPHILS # 2.2 10^3/uL (1.8-7.7); NEUTROPHILS % 38.5 % (36.0-66.0); PLATELET COUNT, AUTOMATED 236 10^3/uL (150-450); WHITE BLOOD COUNT 5.6 10^3/uL (4.0-10.0)
[2018-06-22 14:40] LABS: ALBUMIN 3.6 GM/DL (3.2-5.2); ALT/SGPT 44 U/L (12-78); BILIRUBIN,TOTAL 0.2 MG/DL (0.2-1.0); BLOOD UREA NITROGEN 9 MG/DL (7-18); CALCIUM LEVEL 9.4 MG/DL (8.5-10.1); CARBON DIOXIDE LEVEL 28 MEQ/L (21-32); CHLORIDE LEVEL 106 MEQ/L (98-107); GLOMERULAR FILTRATION RATE > 60.0 (>60); GLUCOSE, FASTING 129 MG/DL (70-100); POTASSIUM SERUM 4.2 MEQ/L (3.5-5.1); SODIUM LEVEL 140 MEQ/L (136-145); TOTAL PROTEIN 6.9 GM/DL (6.4-8.2)
[2018-06-27 10:15] LABS: HEPATITIS C QUANTITATION HCV Not Detected IU/mL (.)
== END ==
LOC: M LAB 12:23
PROVIDERS: ATTEND Internal Medicine Infectious Disease
DX: B19.20 Unspecified viral hepatitis C without hepatic coma (principal)

== ENCOUNTER → 2018-06-22 | Outpatient (CLI) | payer OTHER ==
[2018-06-22 14:21] LABS: HEMATOCRIT 41.5 % (36.0-47.0); HEMOGLOBIN 13.3 g/dl (12.0-15.5); MEAN CORPUSCULAR HEMOGLOBIN 29.2 pg (27.0-33.0); PLATELET COUNT, AUTOMATED 251 10^3/uL (150-450); RED BLOOD COUNT 4.56 10^6/uL (4.00-5.40); WHITE BLOOD COUNT 5.8 10^3/uL (4.0-10.0)
[2018-06-22 14:41] LABS: ALBUMIN 3.6 GM/DL (3.2-5.2); ALT/SGPT 47 U/L (12-78); BILIRUBIN,TOTAL 0.2 MG/DL (0.2-1.0); BLOOD UREA NITROGEN 9 MG/DL (7-18); CALCIUM LEVEL 9.3 MG/DL (8.5-10.1); CARBON DIOXIDE LEVEL 27 MEQ/L (21-32); CHLORIDE LEVEL 106 MEQ/L (98-107); CREATININE FOR GFR 0.61 MG/DL (0.55-1.30); GLOMERULAR FILTRATION RATE > 60.0 (>60); GLUCOSE, FASTING 131 MG/DL (70-100); POTASSIUM SERUM 4.2 MEQ/L (3.5-5.1); SODIUM LEVEL 139 MEQ/L (136-145); TOTAL PROTEIN 6.9 GM/DL (6.4-8.2)
[2018-06-22 15:34] LABS: HCG, SERUM QUALITATIVE NEGATIVE (NEGATIVE)
[2018-06-22 16:18] LABS: CHLAMYDIA DNA AMPLIFICATION NEGATIVE (NEGATIVE); GC DNA AMPLIFICATION NEGATIVE (NEGATIVE)
--- NOTE | 2018-06-22 19:16 | ECGEPIP ---
Stationary ECG Study 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
[2018-06-23 09:50] LABS: HEPATITIS B SURFACE ANTIGEN NEGATIVE (NEGATIVE)
[2018-06-23 10:18] LABS: HIV 1&2 SCREEN CENTAUR NEGATIVE (NEGATIVE)
[2018-06-23 10:23] LABS: HEPATITIS C VIRUS ABY INDEX > 11.0 INDEX (<0.8)
== END ==
LOC: M LAB 12:16
PROVIDERS: ATTEND Family Medicine
DX: F11.20 Opioid dependence, uncomplicated (principal)

== ENCOUNTER → 2018-06-28 | Outpatient (REF) | payer OTHER ==
[2018-06-28 17:39] LABS: BASO % 0.4 % (0.0-1.0); EOS # 0.1 10^3/uL (0.0-0.50); EOS % 0.6 % (0.0-3.0); HEMATOCRIT 39.8 % (36.0-47.0); HEMOGLOBIN 12.6 g/dl (12.0-15.5); LYMPH # 3.1 10^3/uL (1.5-4.5); LYMPH % 31.6 % (24.0-44.0); MEAN CORPUSCULAR HEMOGLOBIN 29.2 pg (27.0-33.0); MEAN CORPUSCULAR HGB CONC 31.7 g/dl (32.0-36.5); MEAN CORPUSCULAR VOLUME 92.1 fl (80.0-96.0); MONO # 0.9 10^3/uL (0.0-0.8); MONO % 8.7 % (0.0-5.0); NEUTROPHILS # 5.7 10^3/uL (1.8-7.7); NEUTROPHILS % 58.3 % (36.0-66.0); PLATELET COUNT, AUTOMATED 272 10^3/uL (150-450); RED BLOOD COUNT 4.32 10^6/uL (4.00-5.40); WHITE BLOOD COUNT 9.8 10^3/uL (4.0-10.0)
[2018-06-28 17:49] LABS: ALBUMIN 3.8 GM/DL (3.2-5.2); ALT/SGPT 49 U/L (12-78); BILIRUBIN,TOTAL 0.3 MG/DL (0.2-1.0); BLOOD UREA NITROGEN 14 MG/DL (7-18); CALCIUM LEVEL 9.4 MG/DL (8.5-10.1); CARBON DIOXIDE LEVEL 25 MEQ/L (21-32); CHLORIDE LEVEL 104 MEQ/L (98-107); CREATININE FOR GFR 0.66 MG/DL (0.55-1.30); GLOMERULAR FILTRATION RATE > 60.0 (>60); GLUCOSE, FASTING 123 MG/DL (70-100); POTASSIUM SERUM 4.4 MEQ/L (3.5-5.1); SODIUM LEVEL 138 MEQ/L (136-145); TOTAL PROTEIN 7.2 GM/DL (6.4-8.2)
== END ==
LOC: M SFHCPLAZ 14:04
PROVIDERS: ATTEND Family Medicine
DX: K62.5 Hemorrhage of anus and rectum (principal); R19.7 Diarrhea, unspecified; R10.84 Generalized abdominal pain

== ENCOUNTER 2018-08-01 12:15 | Emergency (ER) | payer OTHER ==
[~2018-08-01] VITALS: Ht 162.6 cm; Wt 63.6 kg
[~2018-08-01 12:15] MED LIST changes: +AMOX875T2 PO; +CETI10TA8 PO
[2018-08-01] MEDS ORDERED: ADV250INH INH (12:24)
[2018-08-01] MEDS ORDERED: predniSONE 20 MG TAB PO ONE (14:00)
[2018-08-01] MEDS ORDERED: PRED10TA2 PO (14:02)
[2018-08-01 14:10] VITALS: BP 136/71
== END 2018-08-01 14:11 | disposition home or self-care (01) ==
LOC: M ED 12:15
DX: J45.901 Unspecified asthma with (acute) exacerbation (principal); G89.29 Other chronic pain; M25.562 Pain in left knee; J44.9 Chronic obstructive pulmonary disease, unspecified; K21.9 Gastro-esophageal reflux disease without esophagitis; B19.20 Unspecified viral hepatitis C without hepatic coma; Z79.899 Other long term (current) drug therapy; Z88.7 Allergy status to serum and vaccine; F17.210 Nicotine dependence, cigarettes, uncomplicated

== ENCOUNTER → 2018-08-14 | Outpatient (REF) | payer OTHER ==
[~2018-08-14] MED LIST changes: +ADV250INH INH; -OMEP20CA3 PO; +OMEP20CA4 PO
[2018-08-14 18:46] LABS: C REACTIVE PROTEIN QUANTITATIV 0.78 MG/DL (0.00-0.30); RHEUMATOID FACTOR QUANT < 10.0 IU/ML (<15.0)
[2018-08-14 18:54] LABS: BASO % 0.6 % (0.0-1.0); EOS # 0.1 10^3/uL (0.0-0.50); EOS % 1.6 % (0.0-3.0); HEMATOCRIT 42.1 % (36.0-47.0); HEMOGLOBIN 13.3 g/dl (12.0-15.5); LYMPH # 2.3 10^3/uL (1.5-4.5); MEAN CORPUSCULAR HEMOGLOBIN 29.6 pg (27.0-33.0); MEAN CORPUSCULAR HGB CONC 31.6 g/dl (32.0-36.5); MEAN CORPUSCULAR VOLUME 93.6 fl (80.0-96.0); MONO # 0.6 10^3/uL (0.0-0.8); MONO % 8.9 % (0.0-5.0); NEUTROPHILS # 3.8 10^3/uL (1.8-7.7); NEUTROPHILS % 55.8 % (36.0-66.0); PLATELET COUNT, AUTOMATED 204 10^3/uL (150-450); WHITE BLOOD COUNT 6.9 10^3/uL (4.0-10.0)
[2018-08-14 19:38] LABS: ERYTHROCYTE SEDIMENTATION RATE 9 mm/hr (0-20)
[2018-08-17 00:07] LABS: ANTINUCLEAR ANTIBODIES DIRECT Negative (Negative); Lyme Disease IgG/IgM Antibodie <0.91 ISR (0.00-0.90); Lyme Disease IgM Ab Quantitati <0.80 index (0.00-0.79)
== END ==
LOC: M LABDRAW1 15:34
PROVIDERS: ATTEND Orthopaedic Surgery
DX: M17.12 Unilateral primary osteoarthritis, left knee (principal)

== ENCOUNTER → 2018-10-03 | Outpatient (REF) | payer OTHER ==
[~2018-10-03] MED LIST changes: +ALBU8.5H INH; +AMPH1CAP16 PO; -AMPH20CA PO; +BUPR1TAB52 PO; +CEFU1TAB22; +CEFU1TAB22 PO; +GABA-845 PO; +IBUP-1022 PO; +IBUP1TAB6 PO; +OMEP1CAP73 PO; -OMEP20CA4 PO; -OMEP40CA2 PO; +OMEP40CA97 PO; +PRED20TA
[2018-10-03 16:28] LABS: BASO # 0.1 10^3/uL (0.0-0.2); BASO % 0.9 % (0.0-1.0); EOS # 0.2 10^3/uL (0.0-0.50); EOS % 1.9 % (0.0-3.0); HEMATOCRIT 45.4 % (36.0-47.0); HEMOGLOBIN 14.6 g/dl (12.0-15.5); LYMPH # 3.5 10^3/uL (1.5-4.5); LYMPH % 44.6 % (24.0-44.0); MEAN CORPUSCULAR HEMOGLOBIN 29.6 pg (27.0-33.0); MEAN CORPUSCULAR HGB CONC 32.2 g/dl (32.0-36.5); MEAN CORPUSCULAR VOLUME 92.1 fl (80.0-96.0); MONO # 0.8 10^3/uL (0.0-0.8); MONO % 9.9 % (0.0-5.0); NEUTROPHILS # 3.3 10^3/uL (1.8-7.7); NEUTROPHILS % 42.6 % (36.0-66.0); PLATELET COUNT, AUTOMATED 268 10^3/uL (150-450); RED BLOOD COUNT 4.93 10^6/uL (4.00-5.40); WHITE BLOOD COUNT 7.8 10^3/uL (4.0-10.0)
[2018-10-03 16:29] LABS: ALBUMIN 3.6 GM/DL (3.2-5.2); ALT/SGPT 51 U/L (12-78); BILIRUBIN,TOTAL 0.2 MG/DL (0.2-1.0); BLOOD UREA NITROGEN 8 MG/DL (7-18); CALCIUM LEVEL 8.8 MG/DL (8.5-10.1); CARBON DIOXIDE LEVEL 33 MEQ/L (21-32); CHLORIDE LEVEL 101 MEQ/L (98-107); CREATININE FOR GFR 0.67 MG/DL (0.55-1.30); GLOMERULAR FILTRATION RATE > 60.0 (>60); GLUCOSE, FASTING 89 MG/DL (70-100); POTASSIUM SERUM 4.4 MEQ/L (3.5-5.1); SODIUM LEVEL 138 MEQ/L (136-145); TOTAL PROTEIN 7.3 GM/DL (6.4-8.2)
[2018-10-04 09:21] LABS: HEPATITIS B SURFACE ANTIGEN NEGATIVE (NEGATIVE)
[2018-10-04 09:48] LABS: HEPATITIS B CORE ANTIBODY IGM NEGATIVE (NEGATIVE)
[2018-10-04 09:50] LABS: HEPATITIS A ANTIBODY IGM NEGATIVE (NEGATIVE)
[2018-10-04 09:55] LABS: HEPATITIS C VIRUS ABY INDEX > 11.0 INDEX (<0.8)
== END ==
LOC: M SFHCPLAZ 13:46
PROVIDERS: ATTEND Family Medicine
DX: K52.9 Noninfective gastroenteritis and colitis, unspecified (principal)

== ENCOUNTER → 2018-10-05 | Outpatient (REF) | payer OTHER ==
[~2018-10-05] MED LIST changes: -ALBU8.5H INH; -AMPH1CAP16 PO; +AMPH20CA PO; -BUPR1TAB52 PO; -CEFU1TAB22; -CEFU1TAB22 PO; -GABA-845 PO; -IBUP-1022 PO; -IBUP1TAB6 PO; -OMEP1CAP73 PO; +OMEP20CA4 PO; +OMEP40CA2 PO; -OMEP40CA97 PO; -PRED20TA
== END ==
LOC: M SFHCPLAZ 16:28
PROVIDERS: ATTEND Family Medicine
DX: K52.9 Noninfective gastroenteritis and colitis, unspecified (principal)

== ENCOUNTER 2018-11-07 11:42 | Emergency (ER) | payer OTHER ==
[~2018-11-07] VITALS: Ht 162.6 cm; Wt 64.8 kg
[2018-11-07] MEDS ORDERED: PRED20TA (11:49)
[2018-11-07] MEDS ORDERED: CEFU1TAB22 (11:49)
[2018-11-07] MEDS ORDERED: GABA-845 (11:49)
[2018-11-07] MEDS ORDERED: ALBU8.5H (11:49)
--- NOTE | 2018-11-07 13:40 | REP ---
CHEST, TWO VIEWS: There is no evidence of acute infiltrate. No pleural effusion is seen. The heart is normal in size. The mediastinal silhouette is unremarkable. The visualized osseous structures are intact. IMPRESSION: No acute pulmonary disease. Electronically Signed by Laurent Madrid MD 11/08/2018 04:17 P
[2018-11-07 14:22] VITALS: BP 112/72
== END 2018-11-07 14:25 | disposition home or self-care (01) ==
LOC: M ED 11:42
DX: J44.0 Chronic obstructive pulmonary disease with (acute) lower respiratory infection (principal); J42 Unspecified chronic bronchitis; B34.9 Viral infection, unspecified; F17.210 Nicotine dependence, cigarettes, uncomplicated; Z88.7 Allergy status to serum and vaccine; Z79.51 Long term (current) use of inhaled steroids; Z79.52 Long term (current) use of systemic steroids; Z79.899 Other long term (current) drug therapy

== ENCOUNTER → 2018-11-08 | Outpatient (CLI) | payer OTHER ==
[~2018-11-08] MED LIST changes: +ALBU8.5H; +CEFU1TAB22; +GABA-845; +PRED20TA
--- NOTE | 2018-11-08 16:42 | REP ---
BILATERAL MAMMOGRAM WITH 3D TOMOSYNTHESIS, DIAGNOSTIC MAMMOGRAM LEFT BREAST AND LEFT BREAST ULTRASOUND: HISTORY: Palpable lump medial left breast. No family history of breast cancer. Jada Danielle lifetime risk of breast cancer 11.5%. No comparison study. MLO and CC views of both breasts performed with 3D tomosynthesis. The palpable lump is marked on the skin with a triangular marker and additional spot compression views are performed. There is mild scattered fibroglandular tissue bilaterally. No mass is seen. No architectural distortion is seen. There are no clustered microcalcifications. Real-time sonographic evaluation of the medial aspect of the left breast performed in the region of the palpable lump. There are several dilated ducts seen containing debris. No solid nodule is seen. IMPRESSION: ACR 2 benign. No mass or clustered microcalcifications on the mammogram. By ultrasound there are several dilated ducts in the region of the palpable lump containing debris. No suspicious solid mass is seen. Recommend followup mammogram in one year. BIRADS 2: BI-RADS/ACR category 2 mammogram. Benign Findings. This mammogram was interpreted with the aid of an FDA-approved computer-aided detection system. The patient states she/he had a clinical breast exam in 10/2018. The patient letter being requested is M2. Electronically Signed by Laurent Madrid MD 11/09/2018 05:38 P
== END ==
LOC: M RAD 13:36
PROVIDERS: ATTEND Family Medicine
DX: N63.20 Unspecified lump in the left breast, unspecified quadrant (principal)
CPT/HCPCS: 76642; 77066; G0279

== ENCOUNTER 2019-01-15 12:41 | Emergency (ER) | payer OTHER ==
[~2019-01-15] VITALS: Ht 152.4 cm; Wt 61.4 kg
[2019-01-15 12:41] VITALS: BP 117/71
[~2019-01-15 12:41] MED LIST changes: +AMPH1CAP16 PO; -AMPH20CA PO; +OMEP-172 PO; -OMEP20CA4 PO; -OMEP40CA2 PO; +OMEP40CA97 PO
[2019-01-15] MEDS ORDERED: BREO1INH3 PO (12:47)
[2019-01-15] MEDS ORDERED: KETOROLAC 60 MG/2 ML VIAL (J1885) IM ONE (15:15)
--- NOTE | 2019-01-15 15:46 | REP ---
Right rib series: Four views including PA chest. History: Right posterior rib pain after fall. Comparison chest x-ray November 07 1018. Findings: Upright PA chest x-ray shows no evidence of pneumothorax or hydrothorax. Lung charles are clear. Mediastinum is not widened. Multiple views of the right ribcage show intact right ribs. No rib fracture or bony destructive lesion is seen. Impression: Negative right rib radiographs. Electronically Signed by Jet Napier MD 01/15/2019 03:37 P
--- NOTE | 2019-01-15 15:56 | REP ---
Left knee: Four views. History: Left knee pain after fall. Findings: Four views of the left knee demonstrate moderate osteoarthritic sclerosis, spur formation, and joint space narrowing in the medial compartment of the left knee. These findings are new when compared with the a August 2014 prior study . There is fullness in the suprapatellar bursa indicative of a joint effusion. No sunrise view is included. No definite fracture. Impression: Evidence of a large joint effusion. Moderate medial compartment osteoarthritic spurring and sclerosis. Electronically Signed by Jet Napier MD 01/15/2019 06:01 P
[2019-01-15] MEDS ORDERED: IBUP-1022 PO (16:27)
== END 2019-01-15 16:35 | disposition home or self-care (01) ==
LOC: M ED 13:47
DX: M25.462 Effusion, left knee (principal); S20.211A Contusion of right front wall of thorax, initial encounter; W10.8XXA Fall (on) (from) other stairs and steps, initial encounter; Y92.018 Other place in single-family (private) house as the place of occurrence of the external cause; K21.9 Gastro-esophageal reflux disease without esophagitis; Z79.899 Other long term (current) drug therapy; Z88.7 Allergy status to serum and vaccine; F17.210 Nicotine dependence, cigarettes, uncomplicated
CPT/HCPCS: 71101; 73564; 96372; 99284; J1885

== ENCOUNTER → 2019-01-24 | Outpatient (REF) | payer OTHER ==
[~2019-01-24] MED LIST changes: +BREO1INH3 PO; +IBUP-1022 PO
[2019-01-24 18:09] LABS: APPEARANCE, URINE HAZY (CLEAR); BACTERIA, URINE AUTO NEGATIVE (NEGATIVE); BILIRUBIN, URINE AUTO NEGATIVE (NEGATIVE); BLOOD, URINE BLOOD NEGATIVE (NEGATIVE); CALCIUM OXALATE CRYSTALS LARGE; COLOR, URINE AMBER (YELLOW); GLUCOSE, URINE (UA) AUTO NEGATIVE (NEGATIVE); KETONE, URINE AUTO TRACE mg/dL (NEGATIVE); LEUKOCYTE ESTERASE, URINE AUTO TRACE (NEGATIVE); MUCUS, URINE SMALL (NEGATIVE); NITRITE, URINE AUTO NEGATIVE (NEGATIVE); PROTEIN, URINE AUTO 1+ mg/dL (NEGATIVE); RBC, URINE AUTO 0 /HPF (0-3); SPECIFIC GRAVITY URINE AUTO 1.026 (1.002-1.035); SQUAMOUS EPITHELIAL CELL UR AU 2 /HPF (0-6); UROBILINOGEN, URINE AUTO 0.2 mg/dL (0.0-2.0); WBC, URINE AUTO 2 /HPF (0-3)
== END ==
LOC: M LAB REF 16:54
PROVIDERS: ATTEND Physician Assistant
DX: N39.0 Urinary tract infection, site not specified (principal)

== ENCOUNTER 2019-01-28 17:22 | Inpatient (IN) | payer OTHER ==
[~2019-01-28] VITALS: Ht 152.4 cm; Wt 58.0 kg
[2019-01-28] MEDS: GABAPENTIN 400 MG CAP PO SCH (01:00)
[2019-01-28] MEDS: OMEPRAZOLE 20 MG CAP PO SCH (01:00)
[~2019-01-28 17:22] MED LIST changes: -ALBU8.5H; +ALBU8.5H INH; -BREO1INH3 PO; -GABA-845; +GABA-845 PO
[2019-01-28] MEDS ORDERED: PRED20TA PO (17:32)
[2019-01-28] MEDS ORDERED: CEFU1TAB22 PO (17:32)
[2019-01-28] MEDS ORDERED: BUPR1TAB52 PO (17:32)
[2019-01-28] MEDS ORDERED: MORPHINE 4 MG/ML 1ML VIAL/SYRINGE (J2270) IV ONE (18:00)
[2019-01-28] MEDS ORDERED: NS 1,000 ML IV ONE ×2 (18:00→18:45)
[2019-01-28 18:03] LABS: BASO # 0.1 10^3/uL (0.0-0.2); BASO % 0.2 % (0.0-1.0); EOS # 0.1 10^3/uL (0.0-0.5); EOS % 0.6 % (0.0-3.0); HEMATOCRIT 45.2 % (36.0-47.0); HEMOGLOBIN 14.3 g/dl (12.0-15.5); LYMPH # 0.6 10^3/uL (1.5-5.0); LYMPH % 2.8 % (24.0-44.0); MEAN CORPUSCULAR HEMOGLOBIN 29.2 pg (27.0-33.0); MEAN CORPUSCULAR HGB CONC 31.6 g/dl (32.0-36.5); MEAN CORPUSCULAR VOLUME 92.2 fl (80.0-96.0); MONO % 4.7 % (0.0-5.0); NEUTROPHILS # 19.1 10^3/uL (1.5-8.5); NEUTROPHILS % 90.9 % (36.0-66.0); PLATELET COUNT, AUTOMATED 207 10^3/uL (150-450); WHITE BLOOD COUNT 21.1 10^3/uL (4.0-10.0)
[2019-01-28] MEDS ORDERED: cefTRIAXone SOD 1 GM in D5W MINI-BAG PLUS 50 ML IV ONE (18:30)
[2019-01-28 18:35] LABS: ALBUMIN 3.2 GM/DL (3.2-5.2); ALT/SGPT 43 U/L (12-78); BILIRUBIN,DIRECT 0.2 MG/DL (0.0-0.2); BILIRUBIN,TOTAL 0.7 MG/DL (0.2-1.0); BLOOD UREA NITROGEN 12 MG/DL (7-18); CALCIUM LEVEL 9.2 MG/DL (8.5-10.1); CARBON DIOXIDE LEVEL 28 MEQ/L (21-32); CHLORIDE LEVEL 96 MEQ/L (98-107); CREATININE FOR GFR 0.93 MG/DL (0.55-1.30); GLOMERULAR FILTRATION RATE > 60.0 (>60); GLUCOSE, FASTING 69 MG/DL (70-100); HCG, SERUM QUANTITATIVE < 1.0 MIU/ML; LIPASE 130 U/L (73-393); POTASSIUM SERUM 4.9 MEQ/L (3.5-5.1); SODIUM LEVEL 134 MEQ/L (136-145); TOTAL PROTEIN 7.2 GM/DL (6.4-8.2)
--- NOTE | 2019-01-28 19:40 | REPVR ---
PROCEDURE INFORMATION: Exam: US Duplex Artery and Vein of the Abdominal and/or Reproductive Organs, Complete Exam date and time: 01/28/2019 6:27 PM Age: 38 years old Clinical indication: complicated by abdominal or pelvic pain; Right lower quadrant; First trimester; Gestational age or lmp: Unk; ; Additional info: Right flank pain, + test TECHNIQUE: Imaging protocol: Real-time duplex ultrasound scan of the arterial and venous flow of the abdominal and/or reproductive organs with B-mode, color Doppler flow and spectral waveform analysis with image documentation. Exam focused on the region of clinical concern. Complete exam. Duplex images required to evaluate vascular conditions. COMPARISON: US OBS FOLLOW UP OR REPEAT 11/15/2013 1:04 PM FINDINGS: Normal arterial waveforms are demonstrated within the right and left ovaries on color duplex spectral Doppler analysis. IMPRESSION: No evidence of ovarian torsion. PROCEDURE INFORMATION: Exam: US First Trimester, Transabdominal and US , Transvaginal Exam date and time: 01/28/2019 6:27 PM Age: 38 years old Clinical indication: complicated by abdominal or pelvic pain; Right lower quadrant; First trimester; Gestational age or lmp: Unk; ; Additional info: Right flank pain, + test TECHNIQUE: Imaging protocol: Real-time transabdominal obstetrical ultrasound of the maternal pelvis and a first trimester , less than 14 weeks 0 days, with image documentation. Transvaginal imaging was used for better evaluation of the fetus and adnexa. COMPARISON: US OBS FOLLOW UP OR REPEAT 11/15/2013 1:04 PM FINDINGS: Uterus: The uterus measures 6.9 x 3.2 x 4.3 cm. Normal echogenicity. No intrauterine gestation identified. Right adnexa: Right ovary measures 2.4 x 1.4-1.2 cm. Normal echogenicity. Normal color-flow. Left adnexa: Left ovary measures 1.9 x 1 x 1.7 cm. Normal echogenicity. Normal color-flow. Intraperitoneal: No intraperitoneal free fluid. IMPRESSION: No acute findings. No evidence of intrauterine gestation. Given provided history of positive test, recommend continued followup pelvic ultrasounds and correlation with beta hCG, at the discretion of gynecology. Electronically signed by: Otis Beck On 01/28/2019 19:40:17 PM
--- NOTE | 2019-01-28 19:44 | REPVR ---
PROCEDURE INFORMATION: Exam: US Abdomen Limited, Right Upper Quadrant Exam date and time: 01/28/2019 6:27 PM Age: 38 years old Clinical indication: Abdominal pain; Flank; Right; ; Additional info: Fever, right flank pain TECHNIQUE: Imaging protocol: Real-time ultrasound of the abdomen with image documentation. Examination was focused on the right upper quadrant. COMPARISON: LIVER US 12/20/2017 7:15 PM FINDINGS: Liver: Diffusely echogenic liver. No focal hepatic masses. Gallbladder: No gallbladder wall thickening. No gallstones. Sonographic Crook's sign is negative. Common bile duct: The common bile duct measures up to 0.7 cm in diameter. Pancreas: Visualized pancreas is unremarkable. Right kidney: The right kidney measures 11.7 cm in length. Normal echogenicity. No hydronephrosis or stones. IMPRESSION: 1. Common bile duct measures up to 0.7 cm in diameter. Obstructive process such as choledocholithiasis cannot be excluded. Recommend GI consultation and correlation with LFTs. 2. Hepatic steatosis. Electronically signed by: Otis Beck On 01/28/2019 19:43:55 PM
[2019-01-28] MEDS ORDERED: LIDOCAINE 2% 5ML JELLY UROJET TOP ONE (21:00)
[2019-01-28] MEDS ORDERED: ISOVUE-370 76% 100ML VIAL (Q9967) As Ordered ONE (21:51)
[2019-01-28 21:56] LABS: AMPHETAMINES LEVEL URINE NEGATIVE (NEGATIVE); BARBITURATES URINE NEGATIVE (NEGATIVE); BENZODIAZEPINES URINE NEGATIVE (NEGATIVE); CANNABINOIDS URINE NEGATIVE (NEGATIVE); COCAINE METABOLITE URINE POSITIVE (NEGATIVE); METHADONE URINE POSITIVE (NEGATIVE); OPIATES URINE POSITIVE (NEGATIVE); PHENCYCLIDINE URINE NEGATIVE (NEGATIVE)
--- NOTE | 2019-01-28 22:21 | REPVR ---
PROCEDURE INFORMATION: Exam: CT Chest With Contrast Exam date and time: 01/28/2019 9:58 PM Age: 38 years old Clinical indication: Fever; Additional info: Fever, right flank pain TECHNIQUE: Imaging protocol: Computed tomography of the chest with intravenous contrast. Radiation optimization: All CT scans at this facility use at least one of these dose optimization techniques: automated exposure control; mA and/or kV adjustment per patient size (includes targeted exams where dose is matched to clinical indication); or iterative reconstruction. Contrast material: ISOVUE 370; Contrast volume: 100 ml; Contrast route: IV; COMPARISON: CT ANGIO CHEST 12/21/2017 4:46 PM FINDINGS: Lungs: Scattered bilateral multifocal solid, part solid, and groundglass nodular opacities throughout the lungs, example 1.4 cm part solid nodule in the left lower lobe on series 201 image 57, example 1.3 cm solid nodule in the left lung apex on series 201 image 9. Pleural space: No pleural effusion or pneumothorax. Heart: Unremarkable. No pericardial effusion. Aorta: Unremarkable. Lymph nodes: Scattered prominent but not pathologically enlarged mediastinal lymph nodes. Bones/joints: No acute osseus lesion or fracture. Soft tissues: Unremarkable. IMPRESSION: Scattered bilateral multifocal solid, part solid, and groundglass nodular opacities throughout the lungs given the provided history of fever, new when compared with prior chest CT from December 2017. Given the provided history of pneumonia, findings may represent atypical multifocal pneumonia. Recommend followup chest CT in 6-8 weeks for resolution. Electronically signed by: Otis Beck On 01/28/2019 22:20:59 PM
--- NOTE | 2019-01-28 22:35 | REPVR ---
PROCEDURE INFORMATION: Exam: CT Abdomen And Pelvis With Contrast Exam date and time: 01/28/2019 9:58 PM Age: 38 years old Clinical indication: Abdominal pain; Flank; Right; Additional info: Fever, right flank pain TECHNIQUE: Imaging protocol: Computed tomography of the abdomen and pelvis with intravenous contrast. Radiation optimization: All CT scans at this facility use at least one of these dose optimization techniques: automated exposure control; mA and/or kV adjustment per patient size (includes targeted exams where dose is matched to clinical indication); or iterative reconstruction. Contrast material: ISOVUE 370; Contrast volume: 100 ml; Contrast route: IV; COMPARISON: CT ABD/PEL W/IV CONTRAST ONLY 12/20/2017 4:05 PM FINDINGS: Liver: Hepatic steatosis. Gallbladder and bile ducts: Proximal common bile duct measures up to 0.7 cm in diameter, though tapers to normal caliber inferiorly. Pancreas: Unremarkable. No ductal dilation. Spleen: Unremarkable. Adrenals: Unremarkable. Kidneys and ureters: No hydronephrosis or stones. Stomach and bowel: Stomach is unremarkable. No small bowel obstruction. Large bowel is unremarkable. Appendix: The appendix is normal. Intraperitoneal space: No pneumoperitoneum. No significant fluid collection. Vasculature: Unremarkable. Lymph nodes: No enlarged lymph nodes. Bladder: Unremarkable. Reproductive: Symmetric bilateral metallic surgical clips in the expected regions of the adnexal structures, most likely reflecting prior tubal ligation.. Bones/joints: Acute right L2 transverse process fracture. Soft tissues: Unremarkable. IMPRESSION: 1. Acute right L2 transverse process fracture. Correlate clinically with history of trauma. 2. Hepatic steatosis. Findings were discussed with LUANA DAVIES at 01/28/2019 10:34 PM EST. Electronically signed by: Otis Beck On 01/28/2019 22:34:58 PM
[2019-01-28] MEDS ORDERED: VANCOMYCIN HCL 1,000 MG, VIAL MATE ADAPTER 1 EACH in D5W 250 ML IV ONE (23:00)
[2019-01-28] MEDS ORDERED: IBUP1TAB6 PO (23:02)
--- NOTE | 2019-01-28 23:28 | HPEPDOC ---
[facility] Medical History & Physical Date of Admission Jan 28, 2019 Date of Service: Jan 28, 2019 Attending Physician: ABBY ARIZA MD History and Physical CHIEF COMPLAINT: Fever and back pain HISTORY OF PRESENT ILLNESS: 38-year-old female with past medical history of IV drug use, GERD, hepatitis C, fibromyalgia, depression and previous alcohol use, presents from home with fever, myalgia, arthralgias and back pain. Her symptoms started one to 2 weeks ago, have been worsening and she developed fever with diffuse arthralgias and myalgias a few days ago. She underwent a mechanical fall 1 week ago, fell down the stairs on her front porch, reports landing on her back, presents to the emergency department at that time, x-rays were negative for any fractures. In the ED today. She is found to have an acute L2 right transient process fracture. She is also febrile and CT chest is concerning for s eptic emboli. She reports that she has not used any IV drugs in the past 6 months; also reports that she has a memory issue due to her "disease" and sometimes she forgets what she does hence why she is not 100% sure if she has or has not done IV drugs recently. She does admit to snorting cocaine a couple of days ago and she is on methadone for history of opiate abuse. She currently reports pleuritic chest pain, worsening with deep inspiration, moderate to severe back pain, abdominal pain, along with her myalgias/arthralgias. She denies any nausea, vomiting or diarrhea. 10 point review of system is negative except for above PAST MEDICAL HISTORY: 1. IV drug use. 2. GERD. 3. Previous alcoholic. 4. Hepatitis C 5. Asthma. 6. Fiber myalgia next 7. Depression PAST SURGICAL HISTORY: 1. Tubal ligation. 2. Left Knee surgery. SOCIAL HISTORY: Current smoker, has been smoking less than half a pack per day for 20+ years. Current social alcohol use, previous heavy drinker, reports she cut down years ago. History of heroin, Bryanna and crack, currently snorting cocaine and on methadone FAMILY HISTORY: Negative for heart disease ALLERGIES: Please see below. HOME MEDICATIONS: Please see below. PHYSICAL EXAMINATION: VITAL SIGNS: Please see below. GENERAL: Mild distress HEENT: Normocephalic, atraumatic, dry mucous membranes NECK: Supple CARDIOVASCULAR EXAMINATION: S1, S2, tachycardic RESPIRATORY EXAMINATION: Scattered rhonchi, no wheezing ABDOMINAL EXAMINATION: Soft, mild diffuse tenderness, nondistended, positive bowel sounds EXTREMITIES: Range of motion intact SKIN: No rash NEUROLOGICAL EXAMINATION: Alert and oriented 3, no focal deficits PSYCHIATRIC EXAMINATION: Calm and cooperative LABORATORY DATA: See below. IMAGING: CT chest, concerning for septic emboli, CT abdomen and pelvis showing acute right L2 transverse process fracture MICROBIOLOGY: Please see below. ASSESSMENT: 38-year-old female with past medical history of polysubstance abuse and recent fall being admitted for possible septic emboli secondary to endocarditis and acute L2 right transverse process fracture. PLAN: 1. Possible endocarditis Clinical presentation, history and imaging concerning for endocarditis, CT chest with possible septic emboli, empiric treatment with vancomycin, ceftriaxone, blood cultures pending, TTE ordered. 2. Acute L2 right transverse process fracture Secondary to mechanical fall, sustained 1 week ago, orthopedic evaluation pending (Dr. Ashraf). 3. Hepatitis C Reportedly self cured, reports had levels checked last in one year ago which were negative. 4. Drug abuse. Previously used heroin, Bryanna and crack, currently snorts cocaine, U tox positive, continue methadone. 5. GERD. Continue PPI 6. Fibromyalgia. Continue Flexeril DVT prophylaxis: Heparin subcutaneous GI prophylaxis: Home PPI Vital Signs Vital Signs Date Time Temp Pulse Resp B/P (MAP) Pulse Ox O2 Delivery O2 Flow Rate FiO2 01/28/19 23:05 99.7 116 22 126/65 (85) 94 Room Air Laboratory Data Labs 24H Laboratory Tests 2 01/28/19 17:33: Immature Granulocyte % (Auto) 0.8, Neutrophils (%) (Auto) 90.9H, Lymphocytes (%) (Auto) 2.8L, Monocytes (%) (Auto) 4.7, Eosinophils (%) (Auto) 0.6, Basophils (%) (Auto) 0.2, Neutrophils # (Auto) 19.1H, Lymphocytes # (Auto) 0.6L, Monocytes # ( Auto) 1.0H, Eosinophils # (Auto) 0.1, Basophils # (Auto) 0.1, Nucleated Red Blood Cells % (auto) 0.0, Anion Gap 10, Glomerular Filtration Rate > 60.0, Lactic Acid Level 1.7, Calcium Level 9.2, Total Bilirubin 0.7, Direct Bilirubin 0.2, Aspartate Amino Transf (AST/SGOT) 34, Alanine Aminotransferase (ALT/SGPT) 43, Alkaline Phosphatase 127H, Total Protein 7.2, Albumin 3.2, Albumin/Globulin Ratio 0.80L, Lipase 130, Human Chorionic Gonadotropin, Quant < 1.0 01/28/19 17:52: POC Beta HCG, Quantitative 30.7 01/28/19 19:40: Urine Color YELLOW, Urine Appearance HAZY, Urine pH 5.0, Urine Specific [place] 1.011, Urine Protein NEGATIVE, Urine Glucose (UA) NEGATIVE, Urine Ketones 1+H, Urine Blood NEGATIVE, Urine Nitrite NEGATIVE, Urine Bilirubin NEGATIVE, Urine Urobilinogen 0.2, Urine Leukocyte Esterase NEGATIVE, Urine WBC (Auto) 2, Urine RBC (Auto) 1, Urine Hyaline Casts (Auto) 0, Urine Bacteria (Auto) NEGATIVE, Urine Squamous Epithelial Cells 0, Urine Transitional Epithelial Cells <1, Urine Sperm (Auto) 01/28/19 21:10: Urine Opiates Screen POSITIVEH, Urine Methadone Screen POSITIVEH, Urine Barbiturates Screen NEGATIVE, Urine Phencyclidine Screen NEGATIVE, Urine Amphetamines Screen NEGATIVE, Urine Benzodiazepines Screen NEGATIVE, Urine Cocaine Metabolite Screen POSITIVEH, Urine Cannabinoids Screen NEGATIVE CBC/BMP Laboratory Tests 01/28/19 17:33 Microbiology Microbiology 01/28/19 Blood Culture, Received Pending 01/28/19 Blood Culture, Received Pending Home Medications Scheduled Bupropion HCl (Bupropion HCl Sr) 100 Mg Tab.sr.12h, 100 MG PO DAILY Cetirizine HCl (Cetirizine HCl) 10 Mg Tablet, 10 MG PO DAILY for allergy symptoms Dextroamphetamine/Amphetamine (Adderall Xr 30 mg Capsule) 1 Cap Cap, 1 CAP PO DAILY Fluoxetine Hcl (Fluoxetine HCl) 20 Mg Cap, 40 MG PO DAILY Fluticasone/Vilanterol (Breo Ellipta 200-25 Mcg INH) 1 Each Blst.w.dev, 1 PUFF INH DAILY Gabapentin (Gabapentin) 400 Mg Capsule, 400 MG PO TID Melatonin (Melatonin) 10 Mg Cap, 10 MG PO QHS Methadone HCl (Methadone HCl) 10 Mg Tab, 130 MG PO DAILY Montelukast Sodium (Montelukast Sodium) 10 Mg Tab, 10 MG PO DAILY Omeprazole (Omeprazole) 20 Mg Cap, 40 MG PO BID cefUROXime axetil (Cefuroxime) 500 Mg Tablet, 500 MG PO BID STARTED 01/18/2019 Scheduled PRN Albuterol Sulfate (Albuterol Sulfate Hfa) 8.5 Gm Hfa.aer.ad, 2 PUFFS INH Q4H PRN for SHORTNESS OF BREATH Cyclobenzaprine HCl (Cyclobenzaprine HCl) 10 Mg Tablet, 10 MG PO TID PRN for MUSCLE SPASMS Ibuprofen (Ibuprofen) 600 Mg Tablet, 600 MG PO Q6H PRN for PAIN Allergies Coded Allergies: pneumococcal vaccine (Verified Allergy, Unknown, Swelling,hives, 07/10/18) A-FIB/CHADSVASC A-FIB History Current/History of A-Fib/PAF?: No ABBY ARIZA MD Jan 28, 2019 23:28
[2019-01-28] MEDS ORDERED: MORPHINE 2 MG/ML 1ML VIAL (J2270) IV PRN (23:30)
--- NOTE | 2019-01-28 23:37 | PHACANCOPD ---
PHARMACY VANCOMYCIN DOSING Pt Demographics Demographics Patient Age:38 , Weight:62.730 , Gender: female Adjusted Body Weight Date: 01/28/19, Adjusted Body Weight: Kg Events Past 24 Hours Events Past 24 Hours: NO: Dialysis, Diuretic Therapy, Change in CrCl, Fever, Elevation in WBC, Pending Diagnostics, Pending Procedures, Other Vancomycin Vancomycin Target Ranges: 15-20 mcg/ml Vancomycin Load Y/N: Yes Load Dose Date Time Vancomycin Load Dose: 1000mg Date: 01-29 Time: 0000 Vancomycin Dose Date: 01/28/19. Current Vancomycin Dose: [750mg q8h] Intermittent Dosing?: No Labs Labs Item Value Date Time White Blood Count 21.1 10^3/uL H 01/28/19 1733 Glomerular Filtration Rate > 60.0 01/28/19 1733 Creatinine 0.93 MG/DL 01/28/19 1733 Blood Urea Nitrogen 12 MG/DL 01/28/19 1733 Vital Signs Label Value Date Time Patient Temperature 99.7 degrees F 01/28/19 2305 Temperature Source Oral 01/28/19 2305 Micro Microbiology 01/28/19 Blood Culture, Received Pending 01/28/19 Blood Culture, Received Pending Creatinine Clearance Date:01/28/19. Creatinine Clearance: [~60]. Pending Labs Trough 01-29 @1500 Assessment and Plan Maintaining Current Dose?: Yes Reason for dose change: No Dose Change Pharmacist Note Pharmacist Note Date: 01/28/19. Pharmacist note:Will monitor and make adjustments as needed. GABI MIRANDA PHARMACY Jan 28, 2019 23:37
[2019-01-29 00:30] VITALS: BP 113/64
[2019-01-29] MEDS: ACETAMINOPHEN TAB 650MG DOSE (2X325MG) PO SCH ×4 (01:00→18:28)
[2019-01-29] MEDS: NS 1,000 ML IV SCH ×2 (01:08→08:41)
[2019-01-29] MEDS ORDERED: ACETAMINOPHEN 650 MG SUPP PR PRN (03:45)
[2019-01-29 04:00] VITALS: BP 112/64
[2019-01-29] MEDS: HEPARIN SOD (PORCINE) 5000 UNITS/ML VIAL SQ SCH ×3 (05:18→21:26)
--- NOTE | 2019-01-29 07:42 | REP ---
Clinical: Fever and right-sided chest/flank pain . Comparison: 01/15/2019, 11/07/2018 . Technique: PA and lateral. Findings: The mediastinum and cardiac silhouette are normal. The lung charles are clear and without acute consolidation, effusion, or pneumothorax. The skeletal structures are intact and normal. Impression: 1. No acute cardiopulmonary process. Electronically Signed by Hilton Carter MD 01/29/2019 07:33 A
[2019-01-29 08:00] VITALS: BP 105/57
--- NOTE | 2019-01-29 08:39 | ECGEPIP ---
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 Order Number: [id number] Reading MD: Ryne Us Measurements Intervals [place] Rate: 105 P: 83 MS: 127 QRS: 64 QRSD: 82 T: 62 QT: 334 QTc: 442 Interpretive Statements SINUS TACHYCARDIA RATE CHANGE COMPARED TO 06/22/18 Electronically Signed on 01-29-2019 8:38:59 EST by Ryne Us
[2019-01-29] MEDS: VANCOMYCIN HCL 750 MG, VIAL MATE ADAPTER 1 EACH in D5W 250 ML IV SCH ×2 (08:41→17:12)
[2019-01-29] MEDS ORDERED: VANCOMYCIN HCL 1,000 MG, VIAL MATE ADAPTER 1 EACH in D5W 250 ML IV ONE (09:00)
[2019-01-29 09:01] LABS: HEMATOCRIT 38.1 % (36.0-47.0); HEMOGLOBIN 11.8 g/dl (12.0-15.5); MEAN CORPUSCULAR HEMOGLOBIN 28.9 pg (27.0-33.0); MEAN CORPUSCULAR VOLUME 93.4 fl (80.0-96.0); PLATELET COUNT, AUTOMATED 166 10^3/uL (150-450); RED BLOOD COUNT 4.08 10^6/uL (4.00-5.40); WHITE BLOOD COUNT 14.3 10^3/uL (4.0-10.0)
[2019-01-29 09:36] LABS: ALBUMIN 2.1 GM/DL (3.2-5.2); ALT/SGPT 39 U/L (12-78); BILIRUBIN,TOTAL 0.5 MG/DL (0.2-1.0); BLOOD UREA NITROGEN 7 MG/DL (7-18); CALCIUM LEVEL 8.2 MG/DL (8.5-10.1); CARBON DIOXIDE LEVEL 17 MEQ/L (21-32); CHLORIDE LEVEL 108 MEQ/L (98-107); CREATININE FOR GFR 0.44 MG/DL (0.55-1.30); GLOMERULAR FILTRATION RATE > 60.0 (>60); GLUCOSE, FASTING 37 MG/DL (70-100); MAGNESIUM LEVEL 2.1 MG/DL (1.8-2.4); POTASSIUM SERUM 5.6 MEQ/L (3.5-5.1); SODIUM LEVEL 132 MEQ/L (136-145); TOTAL PROTEIN 6.1 GM/DL (6.4-8.2)
[2019-01-29] MEDS ORDERED: DEXTROSE 50% 50 ML SYRINGE IV STA ×2 (09:47→10:07)
[2019-01-29] MEDS: cefTRIAXone SOD 2 GM in D5W MINI-BAG PLUS 50 ML IV SCH (10:10)
[2019-01-29] MEDS: MONTELUKAST 10 MG TAB PO SCH (10:11)
[2019-01-29] MEDS: CETIRIZINE (ZyrTEC) 10 MG TAB PO SCH (10:11)
[2019-01-29] MEDS: FLUoxetine 20 MG CAP PO SCH (10:11)
[2019-01-29] MEDS: GABAPENTIN 400 MG CAP PO SCH ×3 (10:11→21:26)
[2019-01-29] MEDS: OMEPRAZOLE 20 MG CAP PO SCH ×2 (10:11→21:26)
[2019-01-29] MEDS: buPROPion (WELLBUTRIN SR) 100 MG SR TAB PO SCH (10:12)
[2019-01-29 12:00] VITALS: BP 98/56
[2019-01-29] MEDS ORDERED: PATIROMER SORBITEX CALCIUM 8.4 GM POWDER PACKET (VELTASSA) PO ONE (12:00)
[2019-01-29] MEDS: D5W/0.9% SODIUM CHLORIDE 1,000 ML IV SCH (14:11)
[2019-01-29 16:00] VITALS: BP 101/60
[2019-01-29 16:21] LABS: BLOOD UREA NITROGEN 7 MG/DL (7-18); CALCIUM LEVEL 8.2 MG/DL (8.5-10.1); CARBON DIOXIDE LEVEL 23 MEQ/L (21-32); CHLORIDE LEVEL 105 MEQ/L (98-107); CREATININE FOR GFR 0.61 MG/DL (0.55-1.30); GLOMERULAR FILTRATION RATE > 60.0 (>60); GLUCOSE, FASTING 159 MG/DL (70-100); POTASSIUM SERUM 3.3 MEQ/L (3.5-5.1); SODIUM LEVEL 137 MEQ/L (136-145)
--- NOTE | 2019-01-29 16:39 | PHACANCOPD ---
PHARMACY VANCOMYCIN DOSING Pt Demographics Demographics Patient Age:38 , Weight:62.500 , Gender: female Adjusted Body Weight Date: 01/28/19, Adjusted Body Weight: Kg Events Past 24 Hours Events Past 24 Hours: NO: Dialysis, Diuretic Therapy, Change in CrCl, Fever, Elevation in WBC, Pending Diagnostics, Pending Procedures, Other Vancomycin Vancomycin Target Ranges: 15-20 mcg/ml Vancomycin Load Y/N: Yes Load Dose Date Time Vancomycin Load Dose: 1000mg Date: 01-29 Time: 0000 Vancomycin Dose Date: 01/29/19. Current Vancomycin Dose: [1G IV Q8H] Date: 01/28/19. Current Vancomycin Dose: [750mg q8h] Intermittent Dosing?: No Labs Labs Item Value Date Time White Blood Count 21.1 10^3/uL H 01/28/19 1733 White Blood Count 14.3 10^3/uL H 01/29/19 0825 Creatinine 0.44 MG/DL L # 01/29/19 0819 Creatinine 0.61 MG/DL 01/29/19 1533 Vancomycin Level Trough 7.0 UG/ML L 01/29/19 1533 Micro Microbiology 01/29/19 Blood Culture, Received Pending 01/29/19 Blood Culture, Received Pending 01/28/19 Blood Culture - Preliminary, Resulted 01/28/19 Blood Culture, Received Pending Creatinine Clearance Date:01/29/19. Creatinine Clearance: [134ML/MIN]. Date:01/28/19. Creatinine Clearance: [~60]. Pending Labs Trough 12- @1500 Assessment and Plan Maintaining Current Dose?: No Reason for dose change: Trough too low Pharmacist Note Pharmacist Note Date: 01/29/19. Pharmacist note:The patient trough came back @15:00 after the second dose at 7mcg/ml. Scr has improved to 0.44mg/dl. An additional 500mg vancomycin IV will be given after the 16:00 750mg IV dose. Maintenance dosing will be changed to 1g IV every 8 hours starting 01/30/19 @00:00. A trough is scheduled for 01/30/19 @15:00. We will continue to monitor and adjust the dose as needed. Date: 01/28/19. Pharmacist note:Will monitor and make adjustments as needed. [facility] Jan 29, 2019 16:39
[2019-01-29] MEDS ORDERED: VANCOMYCIN HCL 500 MG in D5W MINI-BAG PLUS 100 ML IV ONE (17:00)
[2019-01-29] MEDS ORDERED: POTASSIUM CHLORIDE 10 MEQ SR TABLET PO ONE (17:00)
[2019-01-29] MEDS: METHADONE 10 MG TAB (S0109) PO SCH (17:20)
[2019-01-29] MEDS: CYCLOBENZAPRINE 10 MG TAB PO PRN (18:41)
[2019-01-29 20:00] VITALS: BP 109/77
--- NOTE | 2019-01-29 20:49 | IPNPDOC ---
Date Seen The patient was seen on 01/29/19. Progress Note HISTORY OF PRESENT ILLNESS: 38-year-old female with past medical history of IV drug use, GERD, hepatitis C, fibromyalgia, depression and previous alcohol use, presents from home with fever, myalgia, arthralgias and back pain. Her symptoms started one to 2 weeks ago, have been worsening and she developed fever with diffuse arthralgias and myalgias a few days ago. She underwent a mechanical fall 1 week ago, fell down the stairs on her front porch, reports landing on her back, presents to the emergency department at that time, x-rays were negative for any fractures. In the ED today. She is found to have an acute L2 right transient process fracture. She is also febrile and CT chest is concerning for septic emboli. She reports that she has not used any IV drugs in the past 6 months; also reports that she has a memory issue due to her "disease" and sometimes she forgets what she does hence why she is not 100% sure if she has or has not done IV drugs recently. She does admit to snorting cocaine a couple of days ago and she is on methadone for history of opiate abuse. She currently repo rts pleuritic chest pain, worsening with deep inspiration, moderate to severe back pain, abdominal pain, along with her myalgias/arthralgias. She denies any nausea, vomiting or diarrhea. 01/29/19 Patient seen in the morning, comfortable with mild back pain, no other complaints, was hypoglycemic, received IV dextrose. Blood cultures growing G+ cocci, TTE pending. Patient denies SOB, change in pleuritic chest pain, nausea, vomiting, abdominal pain or diarrhea. 10 point review of system is negative except for above PHYSICAL EXAMINATION: VITAL SIGNS: Please see below. GENERAL: No distress HEENT: Normocephalic, atraumatic, moist mucous membranes NECK: Supple CARDIOVASCULAR EXAMINATION: S1, S2, no murmurs RESPIRATORY EXAMINATION: Scattered rhonchi, no wheezing ABDOMINAL EXAMINATION: Soft, mild diffuse tenderness, nondistended, positive bowel sounds EXTREMITIES: Range of motion intact SKIN: No rash NEUROLOGICAL EXAMINATION: Alert and oriented 3, no focal deficits PSYCHIATRIC EXAMINATION: Calm and cooperative LABORATORY DATA: See below. IMAGING: CT chest, concerning for septic emboli, CT abdomen and pelvis showing acute right L2 transverse process fracture MICROBIOLOGY: Please see below. ASSESSMENT: 38-year-old female with past medical history of polysubstance abuse and recent fall being admitted for possible septic emboli secondary to endocarditis and acute L2 right transverse process fracture. PLAN: 1. Possible endocarditis Clinical presentation, history and imaging concerning for endocarditis, CT chest with possible septic emboli, empiric treatment with vancomycin, ceftriaxone, blood cultures growing G+ cocci, TTE pending. - Hypoglycemic episode possibly related to Bacteremia w/ poor oral intake, added D5 to IV fluids. 2. Acute L2 right transverse process fracture Secondary to mechanical fall, sustained 1 week ago, discussed with Dr. Ashraf, no intervention, pain control, no limitations to mobility/activity as per Ortho. 3. Hepatitis C Reportedly self cured, reports had levels checked last in one year ago which were negative. 4. Drug abuse. Previously used heroin, Bryanna and crack, currently snorts cocaine, U tox positive, continue methadone. 5. GERD. Continue PPI 6. Fibromyalgia. Continue Flexeril DVT prophylaxis: Heparin subcutaneous GI prophylaxis: Home PPI VS, I&O, 24H, Fishbone Vital Signs/I&O Vital Signs Date Time Temp Pulse Resp B/P (MAP) Pulse Ox O2 Delivery O2 Flow Rate FiO2 01/29/19 19:10 101.3 01/29/19 16:00 89 16 101/60 (74) 95 Room Air I&O- Last 24 Hours up to 6 AM 01/29/19 06:00 Intake Total 3895 ml Output Total 1175 ml Balance 2720 ml Laboratory Data 24H LABS Laboratory Tests 2 01/28/19 21:10: Urine Opiates Screen POSITIVEH, Urine Methadone Screen POSITIVEH, Urine Barbiturates Screen NEGATIVE, Urine Phencyclidine Screen NEGATIVE, Urine Amphetamines Screen NEGATIVE, Urine Benzodiazepines Screen NEGATIVE, Urine Cocaine Metabolite Screen POSITIVEH, Urine Cannabinoids Screen NEGATIVE 01/29/19 08:19: Anion Gap 7L, Glomerular Filtration Rate > 60.0, Calcium Level 8.2L, Magnesium Level 2.1, Total Bilirubin 0.5, Aspartate Amino Transf (AST/SGOT) 57H, Alanine Aminotransferase (ALT/SGPT) 39, Alkaline Phosphatase 103, Total Protein 6.1L, Albumin 2.1#L, Albumin/Globulin Ratio 0.53L 01/29/19 08:25: Nucleated Red Blood Cells % (auto) 0.0, Procalcitonin 0.76 01/29/19 09:51: Bedside Glucose (Misc Panel) 156H 01/29/19 10:36: Bedside Glucose (Misc Panel) 238H 01/29/19 15:33: Anion Gap 9, Glomerular Filtration Rate > 60.0, Calcium Level 8.2L, Vancomycin Level Trough 7.0L 01/29/19 19:39: Bedside Glucose (Misc Panel) 116H CBC/BMP Laboratory Tests 01/29/19 08:19 01/29/19 08:25 01/29/19 15:33 Microbiology Microbiology 01/29/19 Blood Culture, Received Pending 01/29/19 Blood Culture, Received Pending 01/28/19 Blood Culture - Preliminary, Resulted 01/28/19 Blood Culture - Preliminary, Resulted No growth after 24 hours . All specim... ABBY ARIZA MD Jan 29, 2019 20:49
[2019-01-30] VITALS (20 sets, daily range): BP systolic 106–128; BP diastolic 71–88; O2SAT 89–94
[2019-01-30] MEDS: VANCOMYCIN HCL 1,000 MG, VIAL MATE ADAPTER 1 EACH in D5W 250 ML IV SCH ×3 (00:04→16:40)
[2019-01-30] MEDS: D5W/0.9% SODIUM CHLORIDE 1,000 ML IV SCH ×4 (00:05→21:30)
[2019-01-30] MEDS: ACETAMINOPHEN TAB 650MG DOSE (2X325MG) PO SCH ×4 (00:06→18:14)
[2019-01-30] MEDS ORDERED: IPRATROPIUM 0.5MG/ALBUTEROL 2.5MG INH SOL UD 3ML (DUONEB)(J7620) NEB PRN (00:45)
--- NOTE | 2019-01-30 02:05 | CR ---
DATE OF CONSULTATION: 01/29/2019 CHIEF COMPLAINT: Back pain. The patient states that 3 weeks ago, she had a fall. Since that time, she has had progressive back pain. She initially went to the emergency room (ER) a week or two ago and was not found to have any fractures. However, then presented again with continued pain and myalgia that was sharp, 8/10. It was made worse with any sort of ambulation and movement and was, under CT scan, found to have a right transverse process fracture. She was also febrile and was concerning for septic emboli. Patient denies any numbness, tingling, fevers, chills, nausea, vomiting, or incontinence or difficulty with bladder. PAST MEDICAL HISTORY: IV drug use. Patient denies drug use for the past 6 months. However, it is unclear whether or not this is true as she states she cannot always remember. Also has a past history of gastroesophageal reflux disease, alcoholic, hepatitis C, asthma, fibromyalgia, and depression. PAST SURGICAL HISTORY: Tubal ligation. Left knee surgery. SOCIAL HISTORY: Current smoker, half pack a day for 20 years. Social alcohol use. Previous heavy drinker but has cut down. History of heroin, Bryanna, and crack and is currently snorting cocaine and on methadone. ALLERGIES: PNEUMOCOCCAL VACCINE. HOME MEDICATIONS: - bupropion - cetirizine - dextroamphetamine - fluoxetine - fluticasone - gabapentin - melatonin - methadone - omeprazole - cefuroxime REVIEW OF SYSTEMS: Complete 10-system review was conducted. Pertinent positives and negative in the history of present illness (HPI). All other systems negative. PHYSICAL EXAMINATION: Patient is awake, alert, and oriented. Well dressed. Appropriate affect. Breathing unlabored on room air. Normocephalic, atraumatic. Bilateral upper extremities: No tenderness to palpation. Full active range of motion of fingers, wrists, elbows, and shoulders without any pain or discomfort. Positive anterior interosseous nerve (AIN), posterior interosseous nerve (PIN), and ulnar motor nerve function. Skin is intact. Radial pulse 2+, regular rate. Sensation intact to light touch superficial sensory branch of radial nerve, median nerve, and ulnar nerve. Negative provocative testing. Bilateral lower extremities/spine. No tenderness to palpation. Full active range of motion of the knees and ankles and toes. Skin is intact. Posterior tibial pulse 2+, regular rate. Positive extensor hallucis longus (EHL), flexor hallucis longus (FHL), tibialis, and gastroc motor function. Spine motor exam is 5/5 L2-1. Sensation intact to light touch in L2-1 as well. Rectal exam: Deferred. Patient denies saddle anesthesia. IMAGING REVIEWED: CT of the abdomen and pelvis demonstrates an L2 right transverse process fracture. DIAGNOSIS: Right L2 transverse process fracture. I discussed with the patient and the medicine team that this is nonstructural injury that does cause pain due to is muscular attachments there. However, there is no bracing or surgery that is indicated. Patient may work on pain control and ambulate as tolerated without any interventions required. Patient does not require an orthopedic followup but may see us if she wishes. She expressed understanding and agreement with that plan.
[2019-01-30] MEDS: HEPARIN SOD (PORCINE) 5000 UNITS/ML VIAL SQ SCH ×3 (05:17→21:08)
[2019-01-30] MEDS ORDERED: POTASSIUM CHLORIDE 10 MEQ SR TABLET PO ONE (07:45)
[2019-01-30 08:10] LABS: HEMATOCRIT 35.3 % (36.0-47.0); MEAN CORPUSCULAR HEMOGLOBIN 28.9 pg (27.0-33.0); MEAN CORPUSCULAR HGB CONC 31.2 g/dl (32.0-36.5); MEAN CORPUSCULAR VOLUME 92.7 fl (80.0-96.0); PLATELET COUNT, AUTOMATED 132 10^3/uL (150-450); RED BLOOD COUNT 3.81 10^6/uL (4.00-5.40); WHITE BLOOD COUNT 8.8 10^3/uL (4.0-10.0)
--- NOTE | 2019-01-30 08:17 | ECHO ---
DATE OF PROCEDURE: 01/29/2019 REFERRING PHYSICIAN: Dr. Lindsey INDICATION: Fever. HEIGHT: 152 cm. WEIGHT: 63 kg. DIMENSIONS: IVS 1.0 LV 3.1 LVPW 0.8 LA 2.9 Aorta 2.9 IVC 1.8 Mitral E wave velocity 105, A wave 84 E prime septal 10.1 E prime lateral 10.3 FINDINGS: The study is of acceptable technical quality. The patient is in sinus rhythm. Normal LV size with normal LV systolic function, calculated LVEF 72%. Right ventricle is also normal size and systolic function. Both atria appear normal. Aortic mitral and tricuspid valves appear normal. Pulmonic valve was not well seen. No pericardial effusion is noted. Inferior vena cava is normal size. Aortic root and aortic arch appear normal. Abdominal aorta was not well seen. Doppler interrogation reveals competent aortic valve. There is trace mitral and trace tricuspid insufficiency. Calculated pulmonary artery pressure is within normal limits. Mitral inflow pattern and tissue Doppler imaging of mitral annulus reveal normal diastolic function. CONCLUSIONS: 1. Study is of acceptable technical quality, the patient is in sinus rhythm. 2. Normal LV size with normal LV systolic function and normal diastolic function. 3. Trace mitral and tricuspid insufficiency. 4. Likely normal central venous pressure normal pulmonary artery pressure. COMMENTS: SBE prophylaxis is not recommended. Essentially normal echocardiogram.
[2019-01-30 08:47] LABS: BLOOD UREA NITROGEN 3 MG/DL (7-18); CALCIUM LEVEL 7.9 MG/DL (8.5-10.1); CARBON DIOXIDE LEVEL 22 MEQ/L (21-32); CHLORIDE LEVEL 106 MEQ/L (98-107); CREATININE FOR GFR 0.56 MG/DL (0.55-1.30); GLOMERULAR FILTRATION RATE > 60.0 (>60); GLUCOSE, FASTING 119 MG/DL (70-100); MAGNESIUM LEVEL 1.6 MG/DL (1.8-2.4); PHOSPHORUS LEVEL 2.2 MG/DL (2.5-4.9); POTASSIUM SERUM 4.3 MEQ/L (3.5-5.1); SODIUM LEVEL 135 MEQ/L (136-145)
[2019-01-30] MEDS: GABAPENTIN 400 MG CAP PO SCH ×3 (08:55→20:10)
[2019-01-30] MEDS: METHADONE 10 MG TAB (S0109) PO SCH (08:55)
[2019-01-30] MEDS: MONTELUKAST 10 MG TAB PO SCH (08:56)
[2019-01-30] MEDS: FLUoxetine 20 MG CAP PO SCH (08:56)
[2019-01-30] MEDS: CETIRIZINE (ZyrTEC) 10 MG TAB PO SCH (08:56)
[2019-01-30] MEDS: buPROPion (WELLBUTRIN SR) 100 MG SR TAB PO SCH (08:56)
[2019-01-30] MEDS: cefTRIAXone SOD 2 GM in D5W MINI-BAG PLUS 50 ML IV SCH (09:05)
[2019-01-30] MEDS: OMEPRAZOLE 20 MG CAP PO SCH ×2 (09:05→20:11)
--- NOTE | 2019-01-30 12:48 | IPNPDOC ---
Subjective Date Seen The patient was seen on 01/30/19. Subjective Chief Complaint/HPI Patient crying in bed, says she has nobody to wrap her present for her kids and will possibly sign out AMA tonight. All risks of not getting proper care, including worsening of infection and were explained to her and she is understands very well. General: Denies: ROS Unobtainable, Chills, Night Sweats, Fatigue, Malaise, Normal Appetite, Other Symptoms Constitutional: Denies: Chills, Fever, Malaise, Night Sweats, Weakness, Fatigue, Weight Loss, Lethargy, Other Eyes: Denies: Pain, Vision change, Conjunctivae inflammation, Eyelid inflammation, Redness, Other ENT: Denies: Head Aches, Ear Pain, Dysphagia, Sinus Congestion, Post Nasal Drip, Sore Throat, Epistaxis, Other Symptoms Skin: Denies: Rash, Lesions, Jaundice, Bruising, Itching, Dry, Breakdown, Nail Changes, Other Pulmonary: Denies: Dyspnea, Cough, Pleuritic Chest Pain, Other Symptoms Cardiovascular: Denies: Chest Pain, Palpitations, Orthopnea, Paroxysmal Noc. Dyspnea, Edema, Lt Headedness, Other Symptoms Gastrointestinal: Denies: Nausea, Vomiting, Abdominal Pain, Diarrhea, Constipation, Melena, Hematochezia, Other Symptoms Musculoskeletal: Denies: Neck Pain, Back Pain, Shoulder Pain, Arm Pain, Hand Pain, Leg Pain, Foot Pain, Joint Pain, Muscle Pain, Spasms, Other Symptoms Neurological: Denies: Weakness, Numbness, Incoordination, Change in speech, Confusion, Seizures, Other Symptoms Psych: Reports: Anxiety, Anger Objective Physical Examination General Exam: Positive: Alert, Cooperative Eye Exam: Positive: PERRLA, Conjunctiva & lids normal Chest Exam: Positive: Clear to auscultation, Rales, Rhonchi Heart Exam: Positive: Rate Normal, Normal S1, Normal S2 Abdomen Exam: Positive: Normal bowel sounds, Soft, Tenderness Skin Exam: Positive: Nl turgor and temperature Neuro Exam: Positive: Strength at 5/5 X4 ext, Sensation Intact, Cranial Nerves 3-12 NL Assessment /Plan Problems (1) Positive blood culture Status: Acute Problem Text: Positive blood culture for staph Staphylococcus aureus Patient has a history of IVDA Most likely subacute bacterial endocarditis ID consult has been requested KANCHAN pending Continue present antibiotics Continue IV fluids (2) Hepatitis C Status: Chronic Problem Text: Follows up with her PCP (3) Lumbar transverse process fracture Status: Acute Problem Text: Secondary to mechanical fall Seen by orthopedic no surgical intervention Pain management and physical therapy (4) Hypokalemia Status: Acute Problem Text: Corrected with potassium supplement Check levels in a.m. Plan/VTE VTE Prophylaxis Ordered?: Yes VS, I&O, 24H, Fishbone Vital Signs/I&O Vital Signs Date Time Temp Pulse Resp B/P (MAP) Pulse Ox O2 Delivery O2 Flow Rate FiO2 01/30/19 11:00 93 Nasal Cannula 1.0 01/30/19 08:00 96.7 97 18 106/72 (83) I&O- Last 24 Hours up to 6 AM 01/30/19 06:00 Intake Total 4670 ml Output Total 2950 ml Balance 1720 ml Laboratory Data 24H LABS Laboratory Tests 2 01/29/19 15:33: Anion Gap 9, Glomerular Filtration Rate > 60.0, Calcium Level 8.2L, Vancomycin Level Trough 7.0L 01/29/19 19:39: Bedside Glucose (Misc Panel) 116H 01/30/19 00:11: Bedside Glucose (Misc Panel) 108H 01/30/19 06:33: Bedside Glucose (Misc Panel) 95 01/30/19 07:33: Nucleated Red Blood Cells % (auto) 0.0, Anion Gap 7L, Glomerular Filtration Rate > 60.0, Calcium Level 7.9L, Phosphorus Level 2.2L, Magnesium Level 1.6L CBC/BMP Laboratory Tests 01/29/19 15:33 01/30/19 07:33 Microbiology Microbiology 01/29/19 Blood Culture - Preliminary, Resulted 01/29/19 Blood Culture - Preliminary, Resulted 01/28/19 Blood Culture - Preliminary, Resulted Staphylococcus Aureus 01/28/19 Blood Culture - Preliminary, Resulted Staphylococcus Aureus LUCERO CALIXTO MD Jan 30, 2019 12:48
[2019-01-31] VITALS (11 sets, daily range): BP systolic 107–141; BP diastolic 59–82; O2SAT 91–94
[2019-01-31] MEDS: ACETAMINOPHEN TAB 650MG DOSE (2X325MG) PO SCH ×4 (00:32→18:23)
[2019-01-31] MEDS: VANCOMYCIN HCL 1,000 MG, VIAL MATE ADAPTER 1 EACH in D5W 250 ML IV SCH ×3 (00:32→14:56)
[2019-01-31] MEDS: D5W/0.9% SODIUM CHLORIDE 1,000 ML IV SCH ×3 (05:07→22:15)
[2019-01-31] MEDS: HEPARIN SOD (PORCINE) 5000 UNITS/ML VIAL SQ SCH ×3 (05:11→21:06)
[2019-01-31] MEDS: OMEPRAZOLE 20 MG CAP PO SCH ×2 (09:36→21:05)
[2019-01-31] MEDS: GABAPENTIN 400 MG CAP PO SCH ×3 (09:37→21:06)
[2019-01-31] MEDS: MONTELUKAST 10 MG TAB PO SCH (09:37)
[2019-01-31] MEDS: METHADONE 10 MG TAB (S0109) PO SCH (09:37)
[2019-01-31] MEDS: buPROPion (WELLBUTRIN SR) 100 MG SR TAB PO SCH (09:37)
[2019-01-31] MEDS: FLUoxetine 20 MG CAP PO SCH (09:37)
[2019-01-31] MEDS: CETIRIZINE (ZyrTEC) 10 MG TAB PO SCH (09:37)
--- NOTE | 2019-01-31 09:44 | IPNPDOC ---
Subjective Date Seen The patient was seen on 01/31/19. Subjective Chief Complaint/HPI Patient offers no new complaints. Unable to get IV access secondary to multiple thrombosed and frail superficial veins General: Denies: ROS Unobtainable, Chills, Night Sweats, Fatigue, Malaise, Normal Appetite, Other Symptoms Constitutional: Denies: Chills, Fever, Malaise, Night Sweats, Weakness, Fatigue, Weight Loss, Lethargy, Other Skin: Denies: Rash, Lesions, Jaundice, Bruising, Itching, Dry, Breakdown, Nail Changes, Other Pulmonary: Denies: Dyspnea, Cough, Pleuritic Chest Pain, Other Symptoms Cardiovascular: Denies: Chest Pain, Palpitations, Orthopnea, Paroxysmal Noc. Dyspnea, Edema, Lt Headedness, Other Symptoms Gastrointestinal: Denies: Nausea, Vomiting, Abdominal Pain, Diarrhea, Constipation, Melena, Hematochezia, Other Symptoms Musculoskeletal: Denies: Neck Pain, Back Pain, Shoulder Pain, Arm Pain, Hand Pain, Leg Pain, Foot Pain, Joint Pain, Muscle Pain, Spasms, Other Symptoms Neurological: Denies: Weakness, Numbness, Incoordination, Change in speech, Confusion, Seizures, Other Symptoms Objective Physical Examination General Exam: Positive: Alert, Cooperative Eye Exam: Positive: PERRLA, Conjunctiva & lids normal Chest Exam: Positive: Clear to auscultation, Rales, Rhonchi Heart Exam: Positive: Rate Normal, Normal S1, Normal S2 Abdomen Exam: Positive: Normal bowel sounds, Soft, Tenderness Skin Exam: Positive: Nl turgor and temperature Neuro Exam: Positive: Strength at 5/5 X4 ext, Sensation Intact, Cranial Nerves 3-12 NL Assessment /Plan Problems (1) Positive blood culture Status: Acute Problem Text: Positive blood culture for staph Staphylococcus aureus Patient has a history of IVDA Most likely subacute bacterial endocarditis ID consult has been requested KANCHAN pending DC Rocephin. Continue vancomycin Vanco and IV fluids on hold for 24 hour to PICC line has been placed in tomorrow , We'll closely monitor patient and if needed will give IM antibiotics (2) Hepatitis C Status: Chronic Problem Text: Follows up with her PCP (3) Lumbar transverse process fracture Status: Acute Problem Text: Secondary to mechanical fall Seen by orthopedic no surgical intervention Pain management and physical therapy (4) Hypokalemia Status: Resolved Problem Text: Corrected with potassium supplement Check levels in a.m. (5) Hypomagnesemia Status: Acute Problem Text: Unable to start IV hence we will give by mouth magnesium supplement today Plan/VTE VTE Prophylaxis Ordered?: Yes VS, I&O, 24H, Fishbone Vital Signs/I&O Vital Signs Date Time Temp Pulse Resp B/P (MAP) Pulse Ox O2 Delivery O2 Flow Rate FiO2 01/31/19 07:50 97.0 92 18 141/82 (101) 95 Room Air 01/30/19 12:00 1.0 I&O- Last 24 Hours up to 6 AM 01/31/19 06:00 Intake Total 4597.5 ml Output Total 4800 ml Balance -202.5 ml Laboratory Data 24H LABS Laboratory Tests 2 01/30/19 14:47: Vancomycin Level Trough 12.0 Microbiology Microbiology 01/29/19 Blood Culture - Preliminary, Resulted Staphylococcus Aureus 01/29/19 Blood Culture - Preliminary, Resulted Staphylococcus Aureus 01/28/19 Blood Culture - Final, Complete Staph.aureus Methicillin Resis 01/28/19 Blood Culture - Final, Complete Staph.aureus Methicillin Resis LUCERO CALIXTO MD Jan 31, 2019 09:44
[2019-01-31 11:04] LABS: BASO % 0.4 % (0.0-1.0); EOS # 0.2 10^3/uL (0.0-0.5); EOS % 2.5 % (0.0-3.0); HEMATOCRIT 40.4 % (36.0-47.0); HEMOGLOBIN 12.6 g/dl (12.0-15.5); LYMPH # 1.8 10^3/uL (1.5-5.0); LYMPH % 18.4 % (24.0-44.0); MEAN CORPUSCULAR HEMOGLOBIN 28.8 pg (27.0-33.0); MEAN CORPUSCULAR HGB CONC 31.2 g/dl (32.0-36.5); MEAN CORPUSCULAR VOLUME 92.2 fl (80.0-96.0); MONO # 1.2 10^3/uL (0.0-0.8); MONO % 12.6 % (0.0-5.0); NEUTROPHILS # 6.2 10^3/uL (1.5-8.5); NEUTROPHILS % 65.6 % (36.0-66.0); PLATELET COUNT, AUTOMATED 149 10^3/uL (150-450); RED BLOOD COUNT 4.38 10^6/uL (4.00-5.40); WHITE BLOOD COUNT 9.5 10^3/uL (4.0-10.0)
[2019-01-31] MEDS: MAGNESIUM OXIDE 400 MG TAB (MAG-OX) PO SCH ×2 (11:08→21:06)
[2019-01-31 11:35] LABS: ALBUMIN 2.4 GM/DL (3.2-5.2); ALT/SGPT 52 U/L (12-78); BILIRUBIN,TOTAL 0.3 MG/DL (0.2-1.0); BLOOD UREA NITROGEN 5 MG/DL (7-18); CALCIUM LEVEL 9.1 MG/DL (8.5-10.1); CARBON DIOXIDE LEVEL 26 MEQ/L (21-32); CHLORIDE LEVEL 104 MEQ/L (98-107); CREATININE FOR GFR 0.49 MG/DL (0.55-1.30); GLOMERULAR FILTRATION RATE > 60.0 (>60); GLUCOSE, FASTING 97 MG/DL (70-100); SODIUM LEVEL 137 MEQ/L (136-145); TOTAL PROTEIN 6.8 GM/DL (6.4-8.2)
[2019-01-31] MEDS: NICOTINE POLACRILEX 2 MG GUM PO PRN ×2 (13:26→19:23)
[2019-02-01] VITALS: BP 130/83
[2019-02-01] MEDS: ACETAMINOPHEN TAB 650MG DOSE (2X325MG) PO SCH ×4 (00:06→17:28)
[2019-02-01 04:00] VITALS: BP 113/74
[2019-02-01 04:50] LABS: BASO # 0.1 10^3/uL (0.0-0.2); BASO % 0.5 % (0.0-1.0); EOS # 0.2 10^3/uL (0.0-0.5); EOS % 1.6 % (0.0-3.0); HEMATOCRIT 37.3 % (36.0-47.0); HEMOGLOBIN 12.1 g/dl (12.0-15.5); LYMPH # 2.6 10^3/uL (1.5-5.0); MEAN CORPUSCULAR HEMOGLOBIN 29.1 pg (27.0-33.0); MEAN CORPUSCULAR HGB CONC 32.4 g/dl (32.0-36.5); MEAN CORPUSCULAR VOLUME 89.7 fl (80.0-96.0); MONO # 1.5 10^3/uL (0.0-0.8); MONO % 14.6 % (0.0-5.0); NEUTROPHILS # 5.7 10^3/uL (1.5-8.5); NEUTROPHILS % 56.7 % (36.0-66.0); PLATELET COUNT, AUTOMATED 184 10^3/uL (150-450); RED BLOOD COUNT 4.16 10^6/uL (4.00-5.40); WHITE BLOOD COUNT 10.1 10^3/uL (4.0-10.0)
[2019-02-01 05:30] LABS: ALBUMIN 2.4 GM/DL (3.2-5.2); ALT/SGPT 40 U/L (12-78); BILIRUBIN,TOTAL 0.7 MG/DL (0.2-1.0); BLOOD UREA NITROGEN 4 MG/DL (7-18); CALCIUM LEVEL 9.2 MG/DL (8.5-10.1); CARBON DIOXIDE LEVEL 29 MEQ/L (21-32); CHLORIDE LEVEL 99 MEQ/L (98-107); CREATININE FOR GFR 0.48 MG/DL (0.55-1.30); GLOMERULAR FILTRATION RATE > 60.0 (>60); GLUCOSE, FASTING 84 MG/DL (70-100); POTASSIUM SERUM 3.7 MEQ/L (3.5-5.1); SODIUM LEVEL 135 MEQ/L (136-145); TOTAL PROTEIN 7.1 GM/DL (6.4-8.2)
[2019-02-01] MEDS: HEPARIN SOD (PORCINE) 5000 UNITS/ML VIAL SQ SCH ×3 (05:35→22:03)
[2019-02-01] MEDS: D5W/0.9% SODIUM CHLORIDE 1,000 ML IV SCH ×2 (05:36→17:27)
[2019-02-01 07:38] VITALS: BP 114/73
[2019-02-01] MEDS: VANCOMYCIN HCL 1,000 MG, VIAL MATE ADAPTER 1 EACH in D5W 250 ML IV SCH ×4 (08:00)
[2019-02-01] MEDS: OMEPRAZOLE 20 MG CAP PO SCH ×2 (09:00→20:26)
[2019-02-01] MEDS: MONTELUKAST 10 MG TAB PO SCH (09:00)
[2019-02-01] MEDS: MAGNESIUM OXIDE 400 MG TAB (MAG-OX) PO SCH ×2 (09:00→20:26)
[2019-02-01] MEDS: FLUoxetine 20 MG CAP PO SCH (09:00)
[2019-02-01] MEDS: NICOTINE POLACRILEX 2 MG GUM PO PRN ×3 (09:00→20:33)
[2019-02-01] MEDS: GABAPENTIN 400 MG CAP PO SCH ×3 (09:00→20:25)
[2019-02-01] MEDS: buPROPion (WELLBUTRIN SR) 100 MG SR TAB PO SCH (09:00)
[2019-02-01] MEDS: CETIRIZINE (ZyrTEC) 10 MG TAB PO SCH (09:01)
[2019-02-01] MEDS: METHADONE 10 MG TAB (S0109) PO SCH (09:01)
[2019-02-01] MEDS: CYCLOBENZAPRINE 10 MG TAB PO PRN (09:05)
--- NOTE | 2019-02-01 10:49 | IPNPDOC ---
Subjective Date Seen The patient was seen on 02/01/19. Subjective Chief Complaint/HPI Patient is afebrile, asymptomatic. Awaiting PICC line placement General: Denies: ROS Unobtainable, Chills, Night Sweats, Fatigue, Malaise, Normal Appetite, Other Symptoms Pulmonary: Denies: Dyspnea, Cough, Pleuritic Chest Pain, Other Symptoms Cardiovascular: Denies: Chest Pain, Palpitations, Orthopnea, Paroxysmal Noc. Dyspnea, Edema, Lt Headedness, Other Symptoms Gastrointestinal: Denies: Nausea, Vomiting, Abdominal Pain, Diarrhea, Constipation, Melena, Hematochezia, Other Symptoms Endocrine: Denies: Polydipsia, Polyphagia, Polyuria, Heat Intolerance, Cold Intolerance, Other Endocrine Sx Musculoskeletal: Denies: Neck Pain, Back Pain, Shoulder Pain, Arm Pain, Hand Pain, Leg Pain, Foot Pain, Joint Pain, Muscle Pain, Spasms, Other Symptoms Neurological: Denies: Weakness, Numbness, Incoordination, Change in speech, Confusion, Seizures, Other Symptoms Objective Physical Examination General Exam: Positive: Alert, Cooperative Eye Exam: Positive: PERRLA, Conjunctiva & lids normal Chest Exam: Positive: Clear to auscultation, Rales, Rhonchi Heart Exam: Positive: Rate Normal, Normal S1, Normal S2 Abdomen Exam: Positive: Normal bowel sounds, Soft, Tenderness Skin Exam: Positive: Nl turgor and temperature Neuro Exam: Positive: Strength at 5/5 X4 ext, Sensation Intact, Cranial Nerves 3-12 NL Assessment /Plan Problems (1) Positive blood culture Status: Acute Problem Text: Positive blood culture for staph Staphylococcus aureus Patient has a history of IVDA Most likely subacute bacterial endocarditis ID consult has been requestedpending Rocephin was DC'd and patient will be continued on vancomycin Vancomycin is on hold till since yesterday secondary to lack of IV access Patient is scheduled for PICC line today I discussed with the collections technician and patient has been listed for KANCHAN tomorrow to be done by Dr. moore (2) Hepatitis C Status: Chronic Problem Text: Follows up with her PCP (3) Lumbar transverse process fracture Status: Acute Problem Text: Secondary to mechanical fall Seen by orthopedic no surgical intervention Pain management and physical therapy (4) Hypokalemia Status: Resolved Problem Text: Corrected with potassium supplement Check levels in a.m. (5) Hypomagnesemia Status: Acute Problem Text: Unable to start IV hence we will give by mouth magnesium supplement today Plan/VTE VTE Prophylaxis Ordered?: Yes VS, I&O, 24H, Fishbone Vital Signs/I&O Vital Signs Date Time Temp Pulse Resp B/P (MAP) Pulse Ox O2 Delivery O2 Flow Rate FiO2 02/01/19 07:38 96.8 99 18 114/73 (87) 93 Room Air 01/30/19 12:00 1.0 I&O- Last 24 Hours up to 6 AM 02/01/19 06:00 Intake Total 3095 ml Output Total 4000 ml Balance -905 ml Laboratory Data 24H LABS Laboratory Tests 2 02/01/19 03:50: Immature Granulocyte % (Auto) 0.6, Neutrophils (%) (Auto) 56.7, Lymphocytes (%) (Auto) 26.0, Monocytes (%) (Auto) 14.6H, Eosinophils (%) (Auto) 1.6, Basophils (%) (Auto) 0.5, Neutrophils # (Auto) 5.7, Lymphocytes # (Auto) 2.6, Monocytes # (Auto) 1.5H, Eosinophils # (Auto) 0.2, Basophils # (Auto) 0.1, Nucleated Red Blood Cells % (auto) 0.0, Anion Gap 7L, Glomerular Filtration Rate > 60.0, Calcium Level 9.2, Total Bilirubin 0.7#, Aspartate Amino Transf (AST/SGOT) 24, Alanine Aminotransferase (ALT/SGPT) 40, Alkaline Phosphatase 138H, Total Protein 7.1, Albumin 2.4L, Albumin/Globulin Ratio 0.51L CBC/BMP Laboratory Tests 02/01/19 03:50 Microbiology Microbiology 01/29/19 Blood Culture - Final, Complete Staph.aureus Methicillin Resis 01/29/19 Blood Culture - Final, Complete Staph.aureus Methicillin Resis 01/28/19 Blood Culture - Final, Complete Staph.aureus Methicillin Resis 01/28/19 Blood Culture - Final, Complete Staph.aureus Methicillin Resis LUCERO CALIXTO MD Feb 01, 2019 10:49
[2019-02-01 11:33] VITALS: BP 108/73
[2019-02-01] MEDS: BACTRIM 160MG/800MG DS TAB PO SCH ×2 (13:05→20:26)
[2019-02-01] MEDS ORDERED: LIDOCAINE 1% MDV 20ML VIAL As Ordered ONE (16:03)
--- NOTE | 2019-02-01 16:37 | PHACANCOPD ---
PHARMACY VANCOMYCIN DOSING Pt Demographics Demographics Patient Age:38 , Weight:60.200 , Gender: female Adjusted Body Weight Date: 01/28/19, Adjusted Body Weight: Kg Events Past 24 Hours Events Past 24 Hours: NO: Dialysis, Diuretic Therapy, Change in CrCl, Fever, Elevation in WBC, Pending Diagnostics, Pending Procedures, Other Vancomycin Vancomycin indication: ENDOCARDITIS Vancomycin Target Ranges: 15-20 mcg/ml Vancomycin Load Y/N: Yes Load Dose Date Time Vancomycin Load Dose: 1.25g Date: 02/01/19 Time: 18:00 Vancomycin Load Dose: 1000mg Date: 01-29 Time: 0000 Vancomycin Dose Date: 02/01/19. Current Vancomycin Dose: [1g iv q6h] Date: 01/29/19. Current Vancomycin Dose: [1G IV Q8H] Date: 01/28/19. Current Vancomycin Dose: [750mg q8h] Intermittent Dosing?: No Labs Labs Item Value Date Time White Blood Count 8.8 10^3/uL 01/30/19 0733 White Blood Count 9.5 10^3/uL 01/31/19 1033 White Blood Count 10.1 10^3/uL H 02/01/19 0350 Neutrophils # (Auto) 6.2 10^3/uL 01/31/19 1033 Neutrophils # (Auto) 5.7 10^3/uL 02/01/19 0350 Creatinine 0.56 MG/DL 01/30/19 0733 Creatinine 0.49 MG/DL L 01/31/19 1033 Creatinine 0.48 MG/DL L 02/01/19 0350 Vancomycin Level Trough 7.0 UG/ML L 01/29/19 1533 Vancomycin Level Trough 12.0 UG/ML 01/30/19 1447 Micro Microbiology 01/29/19 Blood Culture - Final, Complete Staph.aureus Methicillin Resis 01/29/19 Blood Culture - Final, Complete Staph.aureus Methicillin Resis 01/28/19 Blood Culture - Final, Complete Staph.aureus Methicillin Resis 01/28/19 Blood Culture - Final, Complete Staph.aureus Methicillin Resis Creatinine Clearance Date:02/01/19. Creatinine Clearance: [123 ml/min]. Date:01/29/19. Creatinine Clearance: [134ML/MIN]. Date:01/28/19. Creatinine Clearance: [~60]. Pending Labs Trough 02-02 @1100 Assessment and Plan Maintaining Current Dose?: No Reason for dose change: Significant event Pharmacist Note Pharmacist Note Date: 02/01/19. Pharmacist note: IV access was lost on this patient 01/31 am. A central line is being placed and dosing will restart 02/01/19 @18:00. The patient will be reloaded with 1.25g vancomycin IV. Maintenance therapy will be 1g IV every 6 hours starting 02/02/19 @ 00:00. A trough is scheduled for 11:00 01/03/19. We will continue to monitor and adjust the dose as needed. Date: 01/29/19. Pharmacist note:The patient trough came back @15:00 after the second dose at 7mcg/ml. Scr has improved to 0.44mg/dl. An additional 500mg vancomycin IV will be given after the 16:00 750mg IV dose. Maintenance dosing will be changed to 1g IV every 8 hours starting 01/30/19 @00:00. A trough is scheduled for 01/30/19 @15:00. We will continue to monitor and adjust the dose as needed. Date: 01/28/19. Pharmacist note:Will monitor and make adjustments as needed. [facility] Feb 01, 2019 16:37
[2019-02-01 16:54] VITALS: BP 116/73
[2019-02-01] MEDS ORDERED: MAGIC MOUTHWASH SUSPENSION BTL SS PRN (17:15)
--- NOTE | 2019-02-01 17:32 | REP ---
PICC line insertion under ultrasound guidance. The procedure was performed by AVA Emerson, under the direct supervision of Dr. Madrid. The risks and benefits of the procedure were explained to the patient and informed consent was obtained both verbally and written. Directly prior to the start of the procedure, a formal timeout was completed in the procedure room. The right basilic vein was localized using ultrasound guidance. The skin was prepped and draped in the sterile fashion. 2 ml 1% lidocaine 10 mg/ml was used as a local anesthetic. Using ultrasound guidance the right basilic vein was cannulated and a 0.018 guidewire was inserted and advanced to the SVC using fluoroscopic guidance. The needle was removed and a 4.5 [place] dilator and peel-away sheath was inserted over the guidewire. A 4.5 [place] single lumen catheter was cut to the length of 35 cm. The dilator was removed and the catheter was inserted over the guide wire with the tip in the SVC. The peel-away sheath was removed and the catheter was flushed with heparinized saline as per hospital protocol. The catheter was affixed to the skin and a sterile dressing was applied. The patient tolerated the procedure well and there were no immediate complications. 0.1 minutes of fluoroscopy time was utilized for this procedure. Some fluoroscopic images are performed with last image hold technology. These images require no additional radiation. Reviewed by AVA Baez 02/01/2019 04:54 P Electronically Signed by Laurent Madrid MD 02/01/2019 05:25 P
[2019-02-01] MEDS: SODIUM CHLORIDE 0.9% INJ 10 ML SYR IV SCH (18:00)
[2019-02-01] MEDS ORDERED: VANCOMYCIN HCL 750 MG, VIAL MATE ADAPTER 1 EACH in D5W 250 ML IV ONE (18:00)
[2019-02-01] MEDS: IBUPROFEN 600 MG TAB PO PRN (18:37)
[2019-02-01] MEDS ORDERED: VANCOMYCIN HCL 500 MG in D5W MINI-BAG PLUS 100 ML IV ONE (19:00)
[2019-02-01 20:00] VITALS: BP 108/65
[2019-02-02] VITALS: BP 114/67
[2019-02-02] MEDS: ACETAMINOPHEN TAB 650MG DOSE (2X325MG) PO SCH ×5 (00:05→23:29)
[2019-02-02] MEDS: VANCOMYCIN HCL 1,000 MG, VIAL MATE ADAPTER 1 EACH in D5W 250 ML IV SCH ×5 (00:05→23:29)
[2019-02-02 04:00] VITALS: BP 98/61
[2019-02-02] MEDS: D5W/0.9% SODIUM CHLORIDE 1,000 ML IV SCH ×2 (04:34→11:25)
[2019-02-02] MEDS: HEPARIN SOD (PORCINE) 5000 UNITS/ML VIAL SQ SCH ×3 (06:00→21:21)
[2019-02-02] MEDS: SODIUM CHLORIDE 0.9% INJ 10 ML SYR IV SCH ×2 (06:01→17:26)
[2019-02-02 06:31] LABS: HEMATOCRIT 35.7 % (36.0-47.0); MEAN CORPUSCULAR HEMOGLOBIN 28.4 pg (27.0-33.0); MEAN CORPUSCULAR HGB CONC 30.8 g/dl (32.0-36.5); MEAN CORPUSCULAR VOLUME 92.2 fl (80.0-96.0); PLATELET COUNT, AUTOMATED 224 10^3/uL (150-450); RED BLOOD COUNT 3.87 10^6/uL (4.00-5.40); WHITE BLOOD COUNT 8.9 10^3/uL (4.0-10.0)
[2019-02-02 06:59] LABS: BLOOD UREA NITROGEN 5 MG/DL (7-18); CALCIUM LEVEL 8.3 MG/DL (8.5-10.1); CARBON DIOXIDE LEVEL 28 MEQ/L (21-32); CHLORIDE LEVEL 105 MEQ/L (98-107); CREATININE FOR GFR 0.52 MG/DL (0.55-1.30); GLOMERULAR FILTRATION RATE > 60.0 (>60); GLUCOSE, FASTING 87 MG/DL (70-100); POTASSIUM SERUM 4.1 MEQ/L (3.5-5.1); SODIUM LEVEL 140 MEQ/L (136-145)
[2019-02-02 08:00] VITALS: BP 113/73
[2019-02-02] MEDS ORDERED: LIDOCAINE 2% INJ 100 MG/5 ML SDV (FOR ANES.) As Ordered ONE (08:10)
[2019-02-02] MEDS ORDERED: PROPOFOL 200 MG/20 ML VIAL As Ordered ONE (08:10)
[2019-02-02] MEDS ORDERED: fentaNYL 100 MCG/2 ML INJECTION (J3010) As Ordered ONE (08:12)
[2019-02-02] MEDS ORDERED: ONDANSETRON 4MG/2ML VIAL (J2405) As Ordered ONE (08:13)
[2019-02-02] MEDS ORDERED: CETACAINE SPRAY 5GM As Ordered ONE (09:48)
[2019-02-02] MEDS ORDERED: LIDOCAINE VISCOUS 2% SOLN 15ML UDC As Ordered ONE (10:03)
[2019-02-02] MEDS ORDERED: METOCLOPRAMIDE INJ 10MG/2ML VIAL (J2765) IV PRN (11:00)
[2019-02-02] MEDS ORDERED: LR 1,000 ML IV SCH (11:00)
[2019-02-02] MEDS ORDERED: ONDANSETRON 4MG/2ML VIAL (J2405) IV PRN (11:00)
--- NOTE | 2019-02-02 11:07 | T-ECHO ---
DATE OF STUDY: 02/02/2019 REFERRING PHYSICIAN: Dr. Bryan Sharma PREPROCEDURE DIAGNOSIS: Methicillin-resistant Staphylococcus aureus (MRSA) bacteremia. POSTPROCEDURE DIAGNOSIS: MRSA bacteremia, tricuspid valve vegetations (infective endocarditis). FINDINGS: Tricuspid valve vegetations with mild tricuspid regurgitation (infective endocarditis). PROCEDURE PERFORMED: Transesophageal echocardiogram. PROCEDURE PERFORMED BY: Phillip Villa MD EMAIL CAMPAIGN SPECIALIST: None. ANESTHESIA: IV sedation with propofol per CYBER ENGINEER. COMPLICATIONS: None. PROCEDURE DESCRIPTION: The patient received viscous lidocaine to gargle and swallow. She received IV propofol as administered by the CYBER ENGINEER. The patient tolerated the procedure well without any immediate complications. Esophageal intubation was accomplished by Dr. Villa using a Ilana 3-dimensional transesophageal echocardiogram probe without difficulty. Rhythm was sinus. The left and right ventricles appeared normal in size and systolic function. The atria appeared normal in size. The aortic valve was 3-cuspid and was structurally and functionally normal. Mitral leaflets were structurally and functionally normal with very mild mitral regurgitation within normal limits. Pulmonic valve appeared normal with mild pulmonic regurgitation. Tricuspid leaflets showed at least two vegetations joined at their base measuring 0.6 cm in maximum length attached to the atrial side of the tricuspid leaflets. Mild tricuspid regurgitation. No pericardial effusion. Distal aortic arch and descending thoracic aorta appeared normal. CONCLUSIONS: 1. Vegetations (up to 0.6 cm maximum length) on the atrial side of the tricuspid valve. Mild tricuspid regurgitation. Findings consistent with [place] infective endocarditis involving the tricuspid valve. 2. Normal left and right ventricle size and systolic function. 3. Otherwise normal appearing transesophageal echocardiogram Doppler findings.
[2019-02-02] MEDS: buPROPion (WELLBUTRIN SR) 100 MG SR TAB PO SCH (11:25)
[2019-02-02] MEDS: FLUoxetine 20 MG CAP PO SCH (11:25)
[2019-02-02] MEDS: MAGNESIUM OXIDE 400 MG TAB (MAG-OX) PO SCH ×2 (11:25→20:14)
[2019-02-02] MEDS: CYCLOBENZAPRINE 10 MG TAB PO PRN (11:26)
[2019-02-02] MEDS: GABAPENTIN 400 MG CAP PO SCH ×3 (11:26→20:13)
[2019-02-02] MEDS: OMEPRAZOLE 20 MG CAP PO SCH ×2 (11:26→20:14)
[2019-02-02] MEDS: CETIRIZINE (ZyrTEC) 10 MG TAB PO SCH (11:26)
[2019-02-02] MEDS: MONTELUKAST 10 MG TAB PO SCH (11:26)
[2019-02-02] MEDS: METHADONE 10 MG TAB (S0109) PO SCH (11:27)
[2019-02-02] MEDS: NICOTINE POLACRILEX 2 MG GUM PO PRN ×2 (11:38→20:13)
[2019-02-02 12:00] VITALS: BP 127/87
--- NOTE | 2019-02-02 12:43 | IPNPDOC ---
Subjective Date Seen The patient was seen on 02/02/19. Subjective Chief Complaint/HPI Patient offers no new complaints at the present time General: Denies: ROS Unobtainable, Chills, Night Sweats, Fatigue, Malaise, Normal Appetite, Other Symptoms Constitutional: Denies: Chills, Fever, Malaise, Night Sweats, Weakness, Fatigue, Weight Loss, Lethargy, Other Pulmonary: Denies: Dyspnea, Cough, Pleuritic Chest Pain, Other Symptoms Cardiovascular: Denies: Chest Pain, Palpitations, Orthopnea, Paroxysmal Noc. Dyspnea, Edema, Lt Headedness, Other Symptoms Gastrointestinal: Denies: Nausea, Vomiting, Abdominal Pain, Diarrhea, Constipation, Melena, Hematochezia, Other Symptoms Genitourinary: Denies: Dysuria, Frequency, Incontinence, Hematuria, Retention, Other Symptoms Musculoskeletal: Denies: Neck Pain, Back Pain, Shoulder Pain, Arm Pain, Hand Pain, Leg Pain, Foot Pain, Joint Pain, Muscle Pain, Spasms, Other Symptoms Neurological: Denies: Weakness, Numbness, Incoordination, Change in speech, Confusion, Seizures, Other Symptoms Objective Physical Examination General Exam: Positive: Alert, Cooperative Eye Exam: Positive: PERRLA, Conjunctiva & lids normal Chest Exam: Positive: Clear to auscultation, Rales, Rhonchi Heart Exam: Positive: Rate Normal, Normal S1, Normal S2 Abdomen Exam: Positive: Normal bowel sounds, Soft, Tenderness Skin Exam: Positive: Nl turgor and temperature Neuro Exam: Positive: Strength at 5/5 X4 ext, Sensation Intact, Cranial Nerves 3-12 NL Assessment /Plan Problems (1) Hepatitis C Status: Chronic Problem Text: Follows up with her PCP (2) Lumbar transverse process fracture Status: Acute Problem Text: Secondary to mechanical fall Seen by orthopedic no surgical intervention Pain management and physical therapy (3) Hypokalemia Status: Resolved Problem Text: Follow levels in a.m. (4) Hypomagnesemia Status: Acute Problem Text: Follow CBC, CMP and magnesium in a.m. (5) Endocarditis Status: Acute Problem Text: Patient had a KANCHAN done today and the report shows:1. Vegetations (up to 0.6 cm maximum length) on the atrial side of the tricuspid valve. Mild tricuspid regurgitation. Findings consistent with [place] infective endocarditis involving the tricuspid valve. 2. Normal left and right ventricle size and systolic function. 3. Otherwise normal appearing transesophageal echocardiogram Doppler findings. Patient had a PICC line placed already Continue vancomycin until she is seen and evaluated by infectious disease for further management and plan Plan/VTE VTE Prophylaxis Ordered?: Yes VS, I&O, 24H, Fishbone Vital Signs/I&O Vital Signs Date Time Temp Pulse Resp B/P (MAP) Pulse Ox O2 Delivery O2 Flow Rate FiO2 02/02/19 12:00 96.7 89 19 127/87 (100) 95 Room Air 01/30/19 12:00 1.0 I&O- Last 24 Hours up to 6 AM 02/02/19 06:00 Intake Total 2760 ml Output Total 4150 ml Balance -1390 ml Laboratory Data 24H LABS Laboratory Tests 2 02/02/19 05:34: Nucleated Red Blood Cells % (auto) 0.0, Anion Gap 7L, Glomerular Filtration Rate > 60.0, Calcium Level 8.3L, C-Reactive Protein, Quantitative 17.40H 02/02/19 11:33: Vancomycin Level Trough 19.0 CBC/BMP Laboratory Tests 02/02/19 05:34 Microbiology Microbiology 01/29/19 Blood Culture - Final, Complete Staph.aureus Methicillin Resis 01/29/19 Blood Culture - Final, Complete Staph.aureus Methicillin Resis 01/28/19 Blood Culture - Final, Complete Staph.aureus Methicillin Resis 01/28/19 Blood Culture - Final, Complete Staph.aureus Methicillin Resis LUCERO CALIXTO MD Feb 02, 2019 12:43
[2019-02-02] MEDS: IBUPROFEN 600 MG TAB PO PRN (13:38)
[2019-02-02 17:59] VITALS: BP 122/68
[2019-02-02 20:00] VITALS: BP 115/73
[2019-02-03] VITALS: BP 110/72
[2019-02-03] MEDS: SODIUM CHLORIDE 0.9% INJ 10 ML SYR IV PRN ×2 (01:12→23:51)
[2019-02-03 04:00] VITALS: BP 117/73
[2019-02-03 04:49] LABS: BASO % 0.4 % (0.0-1.0); EOS # 0.4 10^3/uL (0.0-0.5); EOS % 3.5 % (0.0-3.0); HEMATOCRIT 34.1 % (36.0-47.0); HEMOGLOBIN 10.8 g/dl (12.0-15.5); LYMPH # 2.4 10^3/uL (1.5-5.0); LYMPH % 22.2 % (24.0-44.0); MEAN CORPUSCULAR HGB CONC 31.7 g/dl (32.0-36.5); MEAN CORPUSCULAR VOLUME 91.4 fl (80.0-96.0); MONO # 0.9 10^3/uL (0.0-0.8); MONO % 8.6 % (0.0-5.0); NEUTROPHILS # 6.9 10^3/uL (1.5-8.5); NEUTROPHILS % 64.1 % (36.0-66.0); PLATELET COUNT, AUTOMATED 249 10^3/uL (150-450); RED BLOOD COUNT 3.73 10^6/uL (4.00-5.40); WHITE BLOOD COUNT 10.7 10^3/uL (4.0-10.0)
[2019-02-03 05:15] LABS: ALBUMIN 2.2 GM/DL (3.2-5.2); ALT/SGPT 25 U/L (12-78); BILIRUBIN,TOTAL 0.2 MG/DL (0.2-1.0); BLOOD UREA NITROGEN 5 MG/DL (7-18); CALCIUM LEVEL 8.4 MG/DL (8.5-10.1); CARBON DIOXIDE LEVEL 27 MEQ/L (21-32); CHLORIDE LEVEL 107 MEQ/L (98-107); CREATININE FOR GFR 0.48 MG/DL (0.55-1.30); GLOMERULAR FILTRATION RATE > 60.0 (>60); GLUCOSE, FASTING 83 MG/DL (70-100); MAGNESIUM LEVEL 2.4 MG/DL (1.8-2.4); POTASSIUM SERUM 4.1 MEQ/L (3.5-5.1); SODIUM LEVEL 140 MEQ/L (136-145); TOTAL PROTEIN 6.8 GM/DL (6.4-8.2)
[2019-02-03] MEDS: ACETAMINOPHEN TAB 650MG DOSE (2X325MG) PO SCH ×3 (05:37→17:06)
[2019-02-03] MEDS: VANCOMYCIN HCL 1,000 MG, VIAL MATE ADAPTER 1 EACH in D5W 250 ML IV SCH ×3 (05:37→22:12)
[2019-02-03] MEDS: SODIUM CHLORIDE 0.9% INJ 10 ML SYR IV SCH ×2 (05:38→17:05)
[2019-02-03] MEDS: HEPARIN SOD (PORCINE) 5000 UNITS/ML VIAL SQ SCH ×3 (05:38→22:11)
[2019-02-03 08:00] VITALS: BP 132/84
[2019-02-03] MEDS: FLUoxetine 20 MG CAP PO SCH (08:01)
[2019-02-03] MEDS: OMEPRAZOLE 20 MG CAP PO SCH ×2 (08:01→20:08)
[2019-02-03] MEDS: MONTELUKAST 10 MG TAB PO SCH (08:01)
[2019-02-03] MEDS: buPROPion (WELLBUTRIN SR) 100 MG SR TAB PO SCH (08:01)
[2019-02-03] MEDS: CETIRIZINE (ZyrTEC) 10 MG TAB PO SCH (08:01)
[2019-02-03] MEDS: MAGNESIUM OXIDE 400 MG TAB (MAG-OX) PO SCH ×2 (08:01→20:09)
[2019-02-03] MEDS: GABAPENTIN 400 MG CAP PO SCH ×3 (08:01→20:09)
[2019-02-03] MEDS: METHADONE 10 MG TAB (S0109) PO SCH (08:01)
--- NOTE | 2019-02-03 09:45 | IPNPDOC ---
Subjective Date Seen The patient was seen on 02/03/19. Subjective Chief Complaint/HPI Patient is comfortable in no distress is willing to stay for the course of treatment now General: Denies: ROS Unobtainable, Chills, Night Sweats, Fatigue, Malaise, Normal Appetite, Other Symptoms Constitutional: Denies: Chills, Fever, Malaise, Night Sweats, Weakness, Fatigue, Weight Loss, Lethargy, Other Pulmonary: Denies: Dyspnea, Cough, Pleuritic Chest Pain, Other Symptoms Cardiovascular: Denies: Chest Pain, Palpitations, Orthopnea, Paroxysmal Noc. D yspnea, Edema, Lt Headedness, Other Symptoms Gastrointestinal: Denies: Nausea, Vomiting, Abdominal Pain, Diarrhea, Constipation, Melena, Hematochezia, Other Symptoms Genitourinary: Denies: Dysuria, Frequency, Incontinence, Hematuria, Retention, Other Symptoms Musculoskeletal: Denies: Neck Pain, Back Pain, Shoulder Pain, Arm Pain, Hand Pain, Leg Pain, Foot Pain, Joint Pain, Muscle Pain, Spasms, Other Symptoms Neurological: Denies: Weakness, Numbness, Incoordination, Change in speech, Confusion, Seizures, Other Symptoms Objective Physical Examination General Exam: Positive: Alert, Cooperative Eye Exam: Positive: PERRLA, Conjunctiva & lids normal Chest Exam: Positive: Clear to auscultation, Rales, Rhonchi Heart Exam: Positive: Rate Normal, Normal S1, Normal S2 Abdomen Exam: Positive: Normal bowel sounds, Soft, Tenderness Skin Exam: Positive: Nl turgor and temperature Neuro Exam: Positive: Strength at 5/5 X4 ext, Sensation Intact, Cranial Nerves 3-12 NL Assessment /Plan Problems (1) Endocarditis Status: Acute Problem Text: Patient had a KANCHAN done yesterday and the report shows:1. Vegetations (up to 0.6 cm maximum length) on the atrial side of the tricuspid valve. Mild tricuspid regurgitation. Findings consistent with [place] infective endocarditis involving the tricuspid valve. 2. Normal left and right ventricle size and systolic function. 3. Otherwise normal appearing transesophageal echocardiogram Doppler findings. Patient's blood cultures are positive for Staphylococcus aureus Contacted Dr. parisi, advised to repeat blood cultures Continue vancomycin IV as per orders Will await infectious disease consult officially to be done next week for long- term treatment plan (2) Hepatitis C Status: Chronic Problem Text: Follows up with her PCP (3) Lumbar transverse process fracture Status: Acute Problem Text: Secondary to mechanical fall Seen by orthopedic no surgical intervention Pain management and physical therapy (4) Hypokalemia Status: Resolved Problem Text: Follow levels in a.m. (5) Hypomagnesemia Status: Resolved Problem Text: Resolved Plan/VTE VTE Prophylaxis Ordered?: Yes VS, I&O, 24H, Fishbone Vital Signs/I&O Vital Signs Date Time Temp Pulse Resp B/P (MAP) Pulse Ox O2 Delivery O2 Flow Rate FiO2 02/03/19 08:00 96.3 87 20 132/84 (100) 93 Room Air 01/30/19 12:00 1.0 I&O- Last 24 Hours up to 6 AM 02/03/19 05:59 Intake Total 4380 ml Output Total 1100 ml Balance 3280 ml Laboratory Data 24H LABS Laboratory Tests 2 02/02/19 11:33: Vancomycin Level Trough 19.0 02/03/19 04:11: Immature Granulocyte % (Auto) 1.2, Neutrophils (%) (Auto) 64.1, Lymphocytes (%) (Auto) 22.2L, Monocytes (%) (Auto) 8.6H, Eosinophils (%) (Auto) 3.5H, Basophils (%) (Auto) 0.4, Neutrophils # (Auto) 6.9, Lymphocytes # (Auto) 2.4, Monocytes # (Auto) 0.9H, Eosinophils # (Auto) 0.4, Basophils # (Auto) 0.0, Nucleated Red Blood Cells % (auto) 0.0, Anion Gap 6L, Glomerular Filtration Rate > 60.0, Calcium Level 8.4L, Magnesium Level 2.4, Total Bilirubin 0.2#, Aspartate Amino Transf (AST/SGOT) 20, Alanine Aminotransferase (ALT/SGPT) 25, Alkaline Phosphatase 113, Total Protein 6.8, Albumin 2.2L, Albumin/Globulin Ratio 0.48L CBC/BMP Laboratory Tests 02/03/19 04:11 Microbiology Microbiology 02/02/19 Blood Culture, Received Pending 01/29/19 Blood Culture - Final, Complete Staph.aureus Methicillin Resis 01/29/19 Blood Culture - Final, Complete Staph.aureus Methicillin Resis 01/28/19 Blood Culture - Final, Complete Staph.aureus Methicillin Resis 01/28/19 Blood Culture - Final, Complete Staph.aureus Methicillin Resis LUCERO CALIXTO MD Feb 03, 2019 09:45
[2019-02-03] MEDS ORDERED: AMPHETAMINE/DEXTROAMPHETAMINE 5 MG *ER* CAPSULE (ADDERALL XR) PO ONE (10:00)
[2019-02-03] MEDS: NICOTINE POLACRILEX 2 MG GUM PO PRN ×2 (11:10→15:07)
[2019-02-03 12:00] VITALS: BP 133/82
[2019-02-03] MEDS: IBUPROFEN 600 MG TAB PO PRN (15:02)
[2019-02-03 16:00] VITALS: BP 122/80
[2019-02-03 20:00] VITALS: BP 138/84
[2019-02-03] MEDS: ACETAMINOPHEN TAB 650MG DOSE (2X325MG) PO PRN (20:08)
[2019-02-04] VITALS: BP 120/71
[2019-02-04] MEDS: IBUPROFEN 600 MG TAB PO PRN ×2 (00:06→21:16)
[2019-02-04 04:00] VITALS: BP 119/67
[2019-02-04] MEDS: SODIUM CHLORIDE 0.9% INJ 10 ML SYR IV SCH ×3 (05:11→23:44)
[2019-02-04] MEDS: HEPARIN SOD (PORCINE) 5000 UNITS/ML VIAL SQ SCH ×3 (05:11→21:17)
[2019-02-04 05:42] LABS: HEMATOCRIT 33.8 % (36.0-47.0); HEMOGLOBIN 10.6 g/dl (12.0-15.5); MEAN CORPUSCULAR HEMOGLOBIN 28.6 pg (27.0-33.0); MEAN CORPUSCULAR HGB CONC 31.4 g/dl (32.0-36.5); MEAN CORPUSCULAR VOLUME 91.1 fl (80.0-96.0); PLATELET COUNT, AUTOMATED 259 10^3/uL (150-450); RED BLOOD COUNT 3.71 10^6/uL (4.00-5.40); WHITE BLOOD COUNT 7.4 10^3/uL (4.0-10.0)
[2019-02-04 06:01] LABS: BLOOD UREA NITROGEN 5 MG/DL (7-18); CALCIUM LEVEL 8.7 MG/DL (8.5-10.1); CARBON DIOXIDE LEVEL 31 MEQ/L (21-32); CHLORIDE LEVEL 101 MEQ/L (98-107); CREATININE FOR GFR 0.59 MG/DL (0.55-1.30); GLOMERULAR FILTRATION RATE > 60.0 (>60); GLUCOSE, FASTING 85 MG/DL (70-100); POTASSIUM SERUM 4.1 MEQ/L (3.5-5.1); SODIUM LEVEL 136 MEQ/L (136-145)
[2019-02-04] MEDS: VANCOMYCIN HCL 1,000 MG, VIAL MATE ADAPTER 1 EACH in D5W 250 ML IV SCH ×3 (06:01→22:05)
[2019-02-04] MEDS: METHADONE 10 MG TAB (S0109) PO SCH (07:46)
[2019-02-04] MEDS: AMPHETAMINE/DEXTROAMPHETAMINE 5 MG *ER* CAPSULE (ADDERALL XR) PO SCH (07:46)
[2019-02-04] MEDS: buPROPion (WELLBUTRIN SR) 100 MG SR TAB PO SCH (07:47)
[2019-02-04] MEDS: MAGNESIUM OXIDE 400 MG TAB (MAG-OX) PO SCH ×2 (07:47→21:16)
[2019-02-04] MEDS: FLUoxetine 20 MG CAP PO SCH (07:47)
[2019-02-04] MEDS: OMEPRAZOLE 20 MG CAP PO SCH ×2 (07:47→21:16)
[2019-02-04] MEDS: MONTELUKAST 10 MG TAB PO SCH (07:47)
[2019-02-04] MEDS: CETIRIZINE (ZyrTEC) 10 MG TAB PO SCH (07:47)
[2019-02-04] MEDS: GABAPENTIN 400 MG CAP PO SCH ×3 (07:47→21:15)
[2019-02-04 08:00] VITALS: BP 143/83
--- NOTE | 2019-02-04 09:10 | IPNPDOC ---
Subjective Date Seen The patient was seen on 02/04/19. Subjective Chief Complaint/HPI No new complaints at the present time, patient is comfortable General: Denies: ROS Unobtainable, Chills, Night Sweats, Fatigue, Malaise, Normal Appetite, Other Symptoms Constitutional: Denies: Chills, Fever, Malaise, Night Sweats, Weakness, Fatigue, Weight Loss, Lethargy, Other Skin: Denies: Rash, Lesions, Jaundice, Bruising, Itching, Dry, Breakdown, Nail Changes, Other Pulmonary: Denies: Dyspnea, Cough, Pleuritic Chest Pain, Other Symptoms Cardiovascular: Denies: Chest Pain, Palpitations, Orthopnea, Paroxysmal Noc. Dyspnea, Edema, Lt Headedness, Other Symptoms Gastrointestinal: Denies: Nausea, Vomiting, Abdominal Pain, Diarrhea, Constipation, Melena, Hematochezia, Other Symptoms Musculoskeletal: Denies: Neck Pain, Back Pain, Shoulder Pain, Arm Pain, Hand Pain, Leg Pain, Foot Pain, Joint Pain, Muscle Pain, Spasms, Other Symptoms Neurological: Denies: Weakness, Numbness, Incoordination, Change in speech, Confusion, Seizures, Other Symptoms Objective Physical Examination General Exam: Positive: Alert, Cooperative Eye Exam: Positive: PERRLA, Conjunctiva & lids normal Chest Exam: Positive: Clear to auscultation, Rales, Rhonchi Heart Exam: Positive: Rate Normal, Normal S1, Normal S2 Abdomen Exam: Positive: Normal bowel sounds, Soft, Tenderness Skin Exam: Positive: Nl turgor and temperature Neuro Exam: Positive: Strength at 5/5 X4 ext, Sensation Intact, Cranial Nerves 3-12 NL Assessment /Plan Problems (1) Endocarditis Status: Acute Problem Text: Patient had a KANCHAN done yesterday and the report shows:1. Vegetations (up to 0.6 cm maximum length) on the atrial side of the tricuspid valve. Mild tricuspid regurgitation. Findings consistent with [place] infective endocarditis involving the tricuspid valve. 2. Normal left and right ventricle size and systolic function. 3. Otherwise normal appearing transesophageal echocardiogram Doppler findings. Patient's blood cultures are positive for Staphylococcus aureus Contacted Dr. parisi, advised to repeat blood cultures Continue vancomycin IV as per orders . Patient's WBC count is 7.4 today responding to IV vancomycin, asymptomatic Further recommendation once seen by infectious disease next week (2) Hepatitis C Status: Chronic Problem Text: Follows up with her PCP (3) Lumbar transverse process fracture Status: Acute Problem Text: Secondary to mechanical fall Seen by orthopedic no surgical intervention Pain management and physical therapy (4) Hypokalemia Status: Resolved Problem Text: Follow levels in a.m. (5) Hypomagnesemia Status: Resolved Problem Text: Resolved Plan/VTE VTE Prophylaxis Ordered?: Yes VS, I&O, 24H, Fishbone Vital Signs/I&O Vital Signs Date Time Temp Pulse Resp B/P (MAP) Pulse Ox O2 Delivery O2 Flow Rate FiO2 02/04/19 08:00 97.5 76 20 143/83 (103) 96 Room Air 01/30/19 12:00 1.0 I&O- Last 24 Hours up to 6 AM 02/04/19 06:00 Intake Total 3670 ml Output Total 3600 ml Balance 70 ml Laboratory Data 24H LABS Laboratory Tests 2 02/03/19 11:04: Vancomycin Level Trough 22.6H 02/04/19 05:29: Nucleated Red Blood Cells % (auto) 0.0, Anion Gap 4L, Glomerular Filtration Rate > 60.0, Calcium Level 8.7, C-Reactive Protein, Quantitative 10.50H CBC/BMP Laboratory Tests 02/04/19 05:29 Microbiology Microbiology 02/02/19 Blood Culture - Preliminary, Resulted No growth after 24 hours . All specim... 01/29/19 Blood Culture - Final, Complete Staph.aureus Methicillin Resis 01/29/19 Blood Culture - Final, Complete Staph.aureus Methicillin Resis 01/28/19 Blood Culture - Final, Complete Staph.aureus Methicillin Resis 01/28/19 Blood Culture - Final, Complete Staph.aureus Methicillin Resis LUCERO CALIXTO MD Feb 04, 2019 09:10
--- NOTE | 2019-02-04 10:24 | PHACANCOPD ---
PHARMACY VANCOMYCIN DOSING Pt Demographics Demographics Patient Age:38 , Weight:58.000 , Gender: female Adjusted Body Weight Date: 01/28/19, Adjusted Body Weight: Kg Events Past 24 Hours Events Past 24 Hours: NO: Dialysis, Diuretic Therapy, Change in CrCl, Fever, Elevation in WBC, Pending Diagnostics, Pending Procedures, Other Vancomycin Vancomycin indication: ENDOCARDITIS Vancomycin Target Ranges: 15-20 mcg/ml Vancomycin Load Y/N: Yes Load Dose Date Time Vancomycin Load Dose: 1.25g Date: 02/01/19 Time: 18:00 Vancomycin Load Dose: 1000mg Date: 01-29 Time: 0000 Vancomycin Dose Date: 02/03/19. Current Vancomycin Dose: [1g IV Q8H @15] Date: 02/01/19. Current Vancomycin Dose: [1g iv q6h] Date: 01/29/19. Current Vancomycin Dose: [1G IV Q8H] Date: 01/28/19. Current Vancomycin Dose: [750mg q8h] Intermittent Dosing?: No Labs Labs Item Value Date Time Vancomycin Level Trough 19.0 UG/ML 02/02/19 1133 Vancomycin Level Trough 22.6 UG/ML H 02/03/19 1104 Item Value Date Time White Blood Count 8.9 10^3/uL 02/02/19 0534 White Blood Count 10.7 10^3/uL H 02/03/19 0411 White Blood Count 7.4 10^3/uL 02/04/19 0529 Creatinine 0.52 MG/DL L 02/02/19 0534 Creatinine 0.48 MG/DL L 02/03/19 0411 Creatinine 0.59 MG/DL 02/04/19 0529 C-Reactive Protein, Quantitative 17.40 MG/DL H 02/02/19 0534 C-Reactive Protein, Quantitative 10.50 MG/DL H 02/04/19 0529 Micro Microbiology 02/02/19 Blood Culture - Preliminary, Resulted No growth after 24 hours . All specim... 01/29/19 Blood Culture - Final, Complete Staph.aureus Methicillin Resis 01/29/19 Blood Culture - Final, Complete Staph.aureus Methicillin Resis 01/28/19 Blood Culture - Final, Complete Staph.aureus Methicillin Resis 01/28/19 Blood Culture - Final, Complete Staph.aureus Methicillin Resis Creatinine Clearance Date:02/04/19. Creatinine Clearance: [>100 ml/min]. Date:02/01/19. Creatinine Clearance: [123 ml/min]. Date:01/29/19. Creatinine Clearance: [134ML/MIN]. Date:01/28/19. Creatinine Clearance: [~60]. Pending Labs Trough 02/05 @0600 Assessment and Plan Maintaining Current Dose?: No Reason for dose change: Trough too high Pharmacist Note Pharmacist Note Date: 02/04/19. Pharmacist note: vancomycin trough drawn yesterday 1 hour before the dose was elevated at 22.6 mcg/ml from the previous day of 19 mcg/ml. I reduced her dose to 1g IV q8h. I have a repeat trough scheduled for tomorrow morning. Repeat blood cultures drawn 02/02 have so far been NGTD. KANCHAN done 02/02 was positive for [place] infective endocarditis. We will continue to monitor and make adjustments as necessary. Date: 02/01/19. Pharmacist note: IV access was lost on this patient 01/31 am. A central line is being placed and dosing will restart 02/01/19 @18:00. The patient will be reloaded with 1.25g vancomycin IV. Maintenance therapy will be 1g IV every 6 hours starting 02/02/19 @ 00:00. A trough is scheduled for 11:00 01/03/19. We will continue to monitor and adjust the dose as needed. Date: 01/29/19. Pharmacist note:The patient trough came back @15:00 after the second dose at 7mcg/ml. Scr has improved to 0.44mg/dl. An additional 500mg vancomycin IV will be given after the 16:00 750mg IV dose. Maintenance dosing will be changed to 1g IV every 8 hours starting 01/30/19 @00:00. A trough is scheduled for 01/30/19 @15:00. We will continue to monitor and adjust the dose as needed. Date: 01/28/19. Pharmacist note:Will monitor and make adjustments as needed. Leonidas Little Pharm.D. Feb 04, 2019 10:24
[2019-02-04 12:00] VITALS: BP 138/93
[2019-02-04] MEDS ORDERED: ACETAMINOPHEN TAB 650MG DOSE (2X325MG) PO ONE (16:30)
[2019-02-04 22:00] VITALS: BP 140/89
[2019-02-05 02:00] VITALS: BP 135/77
[2019-02-05] MEDS: HEPARIN SOD (PORCINE) 5000 UNITS/ML VIAL SQ SCH ×3 (05:26→21:31)
[2019-02-05 06:00] VITALS: BP 130/74
[2019-02-05 06:16] LABS: HEMATOCRIT 35.3 % (36.0-47.0); HEMOGLOBIN 11.2 g/dl (12.0-15.5); MEAN CORPUSCULAR HEMOGLOBIN 28.5 pg (27.0-33.0); MEAN CORPUSCULAR HGB CONC 31.7 g/dl (32.0-36.5); MEAN CORPUSCULAR VOLUME 89.8 fl (80.0-96.0); PLATELET COUNT, AUTOMATED 326 10^3/uL (150-450); RED BLOOD COUNT 3.93 10^6/uL (4.00-5.40); WHITE BLOOD COUNT 6.9 10^3/uL (4.0-10.0)
[2019-02-05 06:32] LABS: BLOOD UREA NITROGEN 7 MG/DL (7-18); CALCIUM LEVEL 8.8 MG/DL (8.5-10.1); CARBON DIOXIDE LEVEL 26 MEQ/L (21-32); CHLORIDE LEVEL 103 MEQ/L (98-107); CREATININE FOR GFR 0.63 MG/DL (0.55-1.30); GLOMERULAR FILTRATION RATE > 60.0 (>60); GLUCOSE, FASTING 83 MG/DL (70-100); POTASSIUM SERUM 4.4 MEQ/L (3.5-5.1); SODIUM LEVEL 137 MEQ/L (136-145)
--- NOTE | 2019-02-05 06:45 | PHACANCOPD ---
PHARMACY VANCOMYCIN DOSING Pt Demographics Demographics Patient Age:38 , Weight:58.000 , Gender: female Adjusted Body Weight Date: 01/28/19, Adjusted Body Weight: Kg Vancomycin Vancomycin indication: ENDOCARDITIS Vancomycin Target Ranges: 15-20 mcg/ml Vancomycin Load Y/N: Yes Load Dose Date Time Vancomycin Load Dose: 1.25g Date: 02/01/19 Time: 18:00 Vancomycin Load Dose: 1000mg Date: 01-29 Time: 0000 Vancomycin Dose Date: 02/03/19. Current Vancomycin Dose: [1g IV Q8H @15] Date: 02/01/19. Current Vancomycin Dose: [1g iv q6h] Date: 01/29/19. Current Vancomycin Dose: [1G IV Q8H] Date: 01/28/19. Current Vancomycin Dose: [750mg q8h] Intermittent Dosing?: No Labs Micro Microbiology 02/02/19 Blood Culture - Preliminary, Resulted No Growth after 48 hours. All Specime... 01/29/19 Blood Culture - Final, Complete Staph.aureus Methicillin Resis 01/29/19 Blood Culture - Final, Complete Staph.aureus Methicillin Resis 01/28/19 Blood Culture - Final, Complete Staph.aureus Methicillin Resis 01/28/19 Blood Culture - Final, Complete Staph.aureus Methicillin Resis Creatinine Clearance Date:02/04/19. Creatinine Clearance: [>100 ml/min]. Date:02/01/19. Creatinine Clearance: [123 ml/min]. Date:01/29/19. Creatinine Clearance: [134ML/MIN]. Date:01/28/19. Creatinine Clearance: [~60]. Pending Labs Assessment and Plan Maintaining Current Dose?: Yes Reason for dose change: No Dose Change Pharmacist Note Pharmacist Note Date: 02/05/19. Pharmacist note:Vancomycin trough drawn this morning=18(goal=15- 20)SCR=0.63.Will continue current Vancomycin egimen of 1 gram IV [id number] continue to monitor Date: 02/04/19. Pharmacist note: vancomycin trough drawn yesterday 1 hour before the dose was elevated at 22.6 mcg/ml from the previous day of 19 mcg/ml. I reduced her dose to 1g IV q8h. I have a repeat trough scheduled for tomorrow morning. Repeat blood cultures drawn 02/02 have so far been NGTD. KANCHAN done 02/02 was positive for [place] infective endocarditis. We will continue to monitor and make adjustments as necessary. Date: 02/01/19. Pharmacist note: IV access was lost on this patient 01/31 am. A central line is being placed and dosing will restart 02/01/19 @18:00. The patient will be reloaded with 1.25g vancomycin IV. Maintenance therapy will be 1g IV every 6 hours starting 02/02/19 @ 00:00. A trough is scheduled for 11:00 01/03/19. We will continue to monitor and adjust the dose as needed. Date: 01/29/19. Pharmacist note:The patient trough came back @15:00 after the second dose at 7mcg/ml. Scr has improved to 0.44mg/dl. An additional 500mg vancomycin IV will be given after the 16:00 750mg IV dose. Maintenance dosing will be changed to 1g IV every 8 hours starting 01/30/19 @00:00. A trough is scheduled for 01/30/19 @15:00. We will continue to monitor and adjust the dose as needed. Date: 01/28/19. Pharmacist note:Will monitor and make adjustments as needed. NAINA ROLLE PHARMACY Feb 05, 2019 06:45
[2019-02-05] MEDS: VANCOMYCIN HCL 1,000 MG, VIAL MATE ADAPTER 1 EACH in D5W 250 ML IV SCH ×3 (08:22→23:09)
[2019-02-05] MEDS: GABAPENTIN 400 MG CAP PO SCH ×3 (08:22→21:30)
[2019-02-05] MEDS: OMEPRAZOLE 20 MG CAP PO SCH ×2 (08:23→21:31)
[2019-02-05] MEDS: AMPHETAMINE/DEXTROAMPHETAMINE 5 MG *ER* CAPSULE (ADDERALL XR) PO SCH (08:23)
[2019-02-05] MEDS: MAGNESIUM OXIDE 400 MG TAB (MAG-OX) PO SCH ×2 (08:23→21:30)
[2019-02-05] MEDS: FLUoxetine 20 MG CAP PO SCH (08:23)
[2019-02-05] MEDS: MONTELUKAST 10 MG TAB PO SCH (08:24)
[2019-02-05] MEDS: CETIRIZINE (ZyrTEC) 10 MG TAB PO SCH (08:24)
[2019-02-05] MEDS: METHADONE 10 MG TAB (S0109) PO SCH (08:25)
[2019-02-05] MEDS: buPROPion (WELLBUTRIN SR) 100 MG SR TAB PO SCH (08:58)
--- NOTE | 2019-02-05 11:03 | IPNPDOC ---
Subjective Date Seen The patient was seen on 02/05/19. Subjective Chief Complaint/HPI Patient is comfortable offers no new complaints, awaiting ID consultation ,will be done next week General: Denies: ROS Unobtainable, Chills, Night Sweats, Fatigue, Malaise, Normal Appetite, Other Symptoms Constitutional: Denies: Chills, Fever, Malaise, Night Sweats, Weakness, Fatigue, Weight Loss, Lethargy, Other Pulmonary: Denies: Dyspnea, Cough, Pleuritic Chest Pain, Other Symptoms Cardiovascular: Denies: Chest Pain, Palpitations, Orthopnea, Paroxysmal Noc. Dyspnea, Edema, Lt Headedness, Other Symptoms Gastrointestinal: Denies: Nausea, Vomiting, Abdominal Pain, Diarrhea, Constipation, Melena, Hematochezia, Other Symptoms Musculoskeletal: Denies: Neck Pain, Back Pain, Shoulder Pain, Arm Pain, Hand Pain, Leg Pain, Foot Pain, Joint Pain, Muscle Pain, Spasms, Other Symptoms Neurological: Denies: Weakness, Numbness, Incoordination, Change in speech, Confusion, Seizures, Other Symptoms Psych: Denies: Mood Normal, Anxiety, Depression, Memory Issues, Thoughts of Self Harm, Anger, Thoughts of Harming Other, Other Psych Objective Physical Examination General Exam: Positive: Alert, Cooperative Eye Exam: Positive: PERRLA, Conjunctiva & lids normal Chest Exam: Positive: Clear to auscultation, Rales, Rhonchi Heart Exam: Positive: Rate Normal, Normal S1, Normal S2 Abdomen Exam: Positive: Normal bowel sounds, Soft, Tenderness Skin Exam: Positive: Nl turgor and temperature Neuro Exam: Positive: Strength at 5/5 X4 ext, Sensation Intact, Cranial Nerves 3-12 NL Assessment /Plan Problems (1) Endocarditis Status: Acute Problem Text: Patient had a KANCHAN done yesterday and the report shows:1. Vegetations (up to 0.6 cm maximum length) on the atrial side of the tricuspid valve. Mild tricuspid regurgitation. Findings consistent with [place] infective endocarditis involving the tricuspid valve. 2. Normal left and right ventricle size and systolic function. 3. Otherwise normal appearing transesophageal echocardiogram Doppler findings. Patient's blood cultures are positive for Staphylococcus aureus Contacted Dr. parisi, advised to repeat blood cultures Continue vancomycin IV as per orders Patient's WBC count is 6.9 today. Repeat blood cultures are negative for Stap hylococcus aureus: Done on 02/02/2019 Will wait for ID consultation to be done next week regarding any further planning and the duration of IV antibiotics (2) Hepatitis C Status: Chronic Problem Text: Follows up with her PCP (3) Lumbar transverse process fracture Status: Acute Problem Text: Secondary to mechanical fall Seen by orthopedic no surgical intervention Pain management and physical therapy (4) Hypokalemia Status: Resolved Problem Text: Follow levels in a.m. (5) Hypomagnesemia Status: Resolved Problem Text: Resolved Plan/VTE VTE Prophylaxis Ordered?: Yes VS, I&O, 24H, Fishbone Vital Signs/I&O Vital Signs Date Time Temp Pulse Resp B/P (MAP) Pulse Ox O2 Delivery O2 Flow Rate FiO2 02/05/19 06:00 98.1 68 19 130/74 (92) 96 Room Air 01/30/19 12:00 1.0 I&O- Last 24 Hours up to 6 AM 02/05/19 06:00 Intake Total 2170 ml Output Total 450 ml Balance 1720 ml Laboratory Data 24H LABS Laboratory Tests 2 02/05/19 06:01: Nucleated Red Blood Cells % (auto) 0.0, Anion Gap 8, Glomerular Filtration Rate > 60.0, Calcium Level 8.8, Vancomycin Level Trough 18.0 CBC/BMP Laboratory Tests 02/05/19 06:01 Microbiology Microbiology 02/02/19 Blood Culture - Preliminary, Resulted No Growth after 48 hours. All Specime... 01/29/19 Blood Culture - Final, Complete Staph.aureus Methicillin Resis 01/29/19 Blood Culture - Final, Complete Staph.aureus Methicillin Resis 01/28/19 Blood Culture - Final, Complete Staph.aureus Methicillin Resis 01/28/19 Blood Culture - Final, Complete Staph.aureus Methicillin Resis LUCERO CALIXTO MD Feb 05, 2019 11:03
[2019-02-05] MEDS: NICOTINE POLACRILEX 2 MG GUM PO PRN (13:33)
[2019-02-05] MEDS: SODIUM CHLORIDE 0.9% INJ 10 ML SYR IV SCH ×2 (17:56→23:09)
[2019-02-05] MEDS: ACETAMINOPHEN TAB 650MG DOSE (2X325MG) PO PRN (18:34)
[2019-02-05 22:00] VITALS: BP 123/79
[2019-02-06 06:00] VITALS: BP 128/82
[2019-02-06] MEDS: VANCOMYCIN HCL 1,000 MG, VIAL MATE ADAPTER 1 EACH in D5W 250 ML IV SCH ×2 (06:09→14:13)
[2019-02-06] MEDS: SODIUM CHLORIDE 0.9% INJ 10 ML SYR IV PRN (06:09)
[2019-02-06] MEDS: HEPARIN SOD (PORCINE) 5000 UNITS/ML VIAL SQ SCH ×3 (06:10→22:12)
[2019-02-06 07:03] LABS: HEMATOCRIT 36.7 % (36.0-47.0); HEMOGLOBIN 11.5 g/dl (12.0-15.5); MEAN CORPUSCULAR HEMOGLOBIN 28.3 pg (27.0-33.0); MEAN CORPUSCULAR HGB CONC 31.3 g/dl (32.0-36.5); MEAN CORPUSCULAR VOLUME 90.4 fl (80.0-96.0); PLATELET COUNT, AUTOMATED 376 10^3/uL (150-450); RED BLOOD COUNT 4.06 10^6/uL (4.00-5.40); WHITE BLOOD COUNT 6.3 10^3/uL (4.0-10.0)
[2019-02-06 07:28] LABS: BLOOD UREA NITROGEN 6 MG/DL (7-18); CALCIUM LEVEL 9.2 MG/DL (8.5-10.1); CARBON DIOXIDE LEVEL 28 MEQ/L (21-32); CHLORIDE LEVEL 101 MEQ/L (98-107); CREATININE FOR GFR 0.64 MG/DL (0.55-1.30); GLOMERULAR FILTRATION RATE > 60.0 (>60); GLUCOSE, FASTING 90 MG/DL (70-100); POTASSIUM SERUM 4.8 MEQ/L (3.5-5.1); SODIUM LEVEL 138 MEQ/L (136-145)
[2019-02-06] MEDS: METHADONE 10 MG TAB (S0109) PO SCH (09:41)
[2019-02-06] MEDS: CETIRIZINE (ZyrTEC) 10 MG TAB PO SCH (09:42)
[2019-02-06] MEDS: MONTELUKAST 10 MG TAB PO SCH (09:42)
[2019-02-06] MEDS: buPROPion (WELLBUTRIN SR) 100 MG SR TAB PO SCH (09:42)
[2019-02-06] MEDS: MAGNESIUM OXIDE 400 MG TAB (MAG-OX) PO SCH ×2 (09:42→20:08)
[2019-02-06] MEDS: GABAPENTIN 400 MG CAP PO SCH ×3 (09:42→20:08)
[2019-02-06] MEDS: OMEPRAZOLE 20 MG CAP PO SCH ×2 (09:42→20:08)
[2019-02-06] MEDS: FLUoxetine 20 MG CAP PO SCH (09:42)
[2019-02-06] MEDS: AMPHETAMINE/DEXTROAMPHETAMINE 5 MG *ER* CAPSULE (ADDERALL XR) PO SCH (10:48)
[2019-02-06] MEDS: ACETAMINOPHEN TAB 650MG DOSE (2X325MG) PO PRN (10:49)
[2019-02-06] MEDS: NICOTINE POLACRILEX 2 MG GUM PO PRN ×2 (14:14→20:11)
--- NOTE | 2019-02-06 15:06 | PHACANCOPD ---
PHARMACY VANCOMYCIN DOSING Pt Demographics Demographics Patient Age:38 , Weight:58.000 , Gender: female Adjusted Body Weight Date: 01/28/19, Adjusted Body Weight: Kg Vancomycin Vancomycin indication: ENDOCARDITIS Vancomycin Target Ranges: 15-20 mcg/ml Vancomycin Load Y/N: Yes Load Dose Date Time Vancomycin Load Dose: 1.25g Date: 02/01/19 Time: 18:00 Vancomycin Load Dose: 1000mg Date: 01-29 Time: 0000 Vancomycin Dose Date: 02/06/19. Current Vancomyin Dose: [750 mg IV q8h @00] Date: 02/03/19. Current Vancomycin Dose: [1g IV Q8H @15] Date: 02/01/19. Current Vancomycin Dose: [1g iv q6h] Date: 01/29/19. Current Vancomycin Dose: [1G IV Q8H] Date: 01/28/19. Current Vancomycin Dose: [750mg q8h] Intermittent Dosing?: No Labs Micro Microbiology 02/02/19 Blood Culture - Preliminary, Resulted No Growth after 72 hours. All specime... 01/29/19 Blood Culture - Final, Complete Staph.aureus Methicillin Resis 01/29/19 Blood Culture - Final, Complete Staph.aureus Methicillin Resis 01/28/19 Blood Culture - Final, Complete Staph.aureus Methicillin Resis 01/28/19 Blood Culture - Final, Complete Staph.aureus Methicillin Resis Creatinine Clearance Date:02/04/19. Creatinine Clearance: [>100 ml/min]. Date:02/01/19. Creatinine Clearance: [123 ml/min]. Date:01/29/19. Creatinine Clearance: [134ML/MIN]. Date:01/28/19. Creatinine Clearance: [~60]. Pending Labs Assessment and Plan Maintaining Current Dose?: No Reason for dose change: Trough too high Pharmacist Note Pharmacist Note Date: 02/06/19. Pharmacist note: Vancomycin trough drawn @ 1400 = 22.6. Dose was administered prior to trough resulting. We'll hold dose for 10 hours and change to 750 mg IV q8h. Pharmacy will continue to monitor and make adjustments as needed. Date: 02/05/19. Pharmacist note:Vancomycin trough drawn this morning=18(goal=15-20)SCR=0.63.Will continue current Vancomycin egimen of 1 gram IV [id number] continue to monitor Date: 02/04/19. Pharmacist note: vancomycin trough drawn yesterday 1 hour before the dose was elevated at 22.6 mcg/ml from the previous day of 19 mcg/ml. I reduced her dose to 1g IV q8h. I have a repeat trough scheduled for tomorrow morning. Repeat blood cultures drawn 02/02 have so far been NGTD. KANCHAN done 02/02 was positive for [place] infective endocarditis. We will continue to monitor and make adjustments as necessary. Date: 02/01/19. Pharmacist note: IV access was lost on this patient 01/31 am. A central line is being placed and dosing will restart 02/01/19 @18:00. The patient will be reloaded with 1.25g vancomycin IV. Maintenance therapy will be 1g IV every 6 hours starting 02/02/19 @ 00:00. A trough is scheduled for 11:00 01/03/19. We will continue to monitor and adjust the dose as needed. Date: 01/29/19. Pharmacist note:The patient trough came back @15:00 after the second dose at 7mcg/ml. Scr has improved to 0.44mg/dl. An additional 500mg vancomycin IV will be given after the 16:00 750mg IV dose. Maintenance dosing will be changed to 1g IV every 8 hours starting 01/30/19 @00:00. A trough is scheduled for 01/30/19 @15:00. We will continue to monitor and adjust the dose as needed. Date: 01/28/19. Pharmacist note:Will monitor and make adjustments as needed. JEM BENTLEY PHARMACY Feb 06, 2019 15:06
[2019-02-06] MEDS: SODIUM CHLORIDE 0.9% INJ 10 ML SYR IV SCH ×2 (15:57→23:06)
--- NOTE | 2019-02-06 18:13 | IPNPDOC ---
Date Seen The patient was seen on 02/06/19. Progress Note HISTORY OF PRESENT ILLNESS: 38-year-old female with past medical history of IV drug use, GERD, hepatitis C, fibromyalgia, depression and previous alcohol use, presents from home with fever, myalgia, arthralgias and back pain. Her symptoms started one to 2 weeks ago, have been worsening and she developed fever with diffuse arthralgias and myalgias a few days ago. She underwent a mechanical fall 1 week ago, fell down the stairs on her front porch, reports landing on her back, presents to the emergency department at that time, x-rays were negative for any fractures. In the ED today. She is found to have an acute L2 right transient process fracture. She is also febrile and CT chest is concerning for septic emboli. She reports that she has not used any IV drugs in the past 6 months; also reports that she has a memory issue due to her "disease" and sometimes she forgets what she does hence why she is not 100% sure if she has or has not done IV drugs recently. She does admit to snorting cocaine a couple of days ago and she is on methadone for history of opiate abuse. She currently repo rts pleuritic chest pain, worsening with deep inspiration, moderate to severe back pain, abdominal pain, along with her myalgias/arthralgias. She denies any nausea, vomiting or diarrhea. 02/06/19 Patient has been diagnosed with right-sided endocarditis from MRSA since the last time I saw her. Her cultures have been negative since summer, she remains on vancomycin, currently without any complaints, resting comfortably. She is unable to be discharged as she has a history of IV drug abuse and it is not ideal to send her home with a PICC line. 10 point review of system is negative except for above PHYSICAL EXAMINATION: VITAL SIGNS: Please see below. GENERAL: No distress HEENT: Normocephalic, atraumatic, moist mucous membranes NECK: Supple CARDIOVASCULAR EXAMINATION: S1, S2, no murmurs RESPIRATORY EXAMINATION: Scattered rhonchi, no wheezing ABDOMINAL EXAMINATION: Soft, mild diffuse tenderness, nondistended, positive bowel sounds EXTREMITIES: Range of motion intact SKIN: No rash NEUROLOGICAL EXAMINATION: Alert and oriented 3, no focal deficits PSYCHIATRIC EXAMINATION: Calm and cooperative LABORATORY DATA: See below. MICROBIOLOGY: Please see below. ASSESSMENT: 38-year-old female with past medical history of polysubstance abuse and recent fall admitted for septic emboli secondary to endocarditis and acute L2 right transverse process fracture. PLAN: 1. Right-sided endocarditis from MRSA Tricuspid valve vegetation noted on KANCHAN, 0.6 cm, blood cultures grew MRSA, negative since February 02, continue IV vancomycin, unable to discharge patient with a PICC line given history of IV drug abuse. Was considering discharging patient on Zyvox, but she is on multiple SSRIs/SNRIs that may interact with Zyvox and cause serotonin syndrome. Patient is at high risk for loss of follow- up. No infectious disease consultation available until next week, will keep patient on vancomycin until an alternative oral regimen can be discussed with infectious disease. 2. Acute L2 right transverse process fracture Secondary to mechanical fall, sustained 1 week ago, discussed with Dr. Lavonne ford, no intervention, pain control, no limitations to mobility/activity as per Ortho. 3. Hepatitis C Reportedly self cured, reports had levels checked last in one year ago which were negative. 4. Drug abuse. Previously used heroin, Bryanna and crack, currently snorts cocaine, U tox positive, continue methadone. 5. GERD. Continue PPI 6. Fibromyalgia. Continue Flexeril DVT prophylaxis: Heparin subcutaneous GI prophylaxis: Home PPI VS, I&O, 24H, Fishbone Vital Signs/I&O Vital Signs Date Time Temp Pulse Resp B/P (MAP) Pulse Ox O2 Delivery O2 Flow Rate FiO2 02/06/19 06:00 98.1 76 19 128/82 (97) 96 Room Air I&O- Last 24 Hours up to 6 AM 02/06/19 06:00 Intake Total 1070 ml Output Total 0 ml Balance 1070 ml Laboratory Data 24H LABS Laboratory Tests 2 02/06/19 06:18: Nucleated Red Blood Cells % (auto) 0.0, Anion Gap 9, Glomerular Filtration Rate > 60.0, Calcium Level 9.2 02/06/19 13:50: Vancomycin Level Trough 22.6H CBC/BMP Laboratory Tests 02/06/19 06:18 Microbiology Microbiology 02/02/19 Blood Culture - Preliminary, Resulted No Growth after 72 hours. All specime... 01/29/19 Blood Culture - Final, Complete Staph.aureus Methicillin Resis 01/29/19 Blood Culture - Final, Complete Staph.aureus Methicillin Resis 01/28/19 Blood Culture - Final, Complete Staph.aureus Methicillin Resis 01/28/19 Blood Culture - Final, Complete Staph.aureus Methicillin Resis ABBY ARIZA MD Feb 06, 2019 18:13
[2019-02-06 22:00] VITALS: BP 131/85
[2019-02-06] MEDS: IBUPROFEN 600 MG TAB PO PRN (23:06)
[2019-02-06] MEDS: VANCOMYCIN HCL 750 MG, VIAL MATE ADAPTER 1 EACH in D5W 250 ML IV SCH (23:06)
[2019-02-07] MEDS: HEPARIN SOD (PORCINE) 5000 UNITS/ML VIAL SQ SCH ×3 (05:59→21:58)
[2019-02-07 06:00] VITALS: BP 113/83
[2019-02-07 07:22] LABS: HEMATOCRIT 36.4 % (36.0-47.0); HEMOGLOBIN 11.7 g/dl (12.0-15.5); MEAN CORPUSCULAR HEMOGLOBIN 29.3 pg (27.0-33.0); MEAN CORPUSCULAR HGB CONC 32.1 g/dl (32.0-36.5); PLATELET COUNT, AUTOMATED 390 10^3/uL (150-450); WHITE BLOOD COUNT 7.9 10^3/uL (4.0-10.0)
[2019-02-07 07:48] LABS: BLOOD UREA NITROGEN 8 MG/DL (7-18); CARBON DIOXIDE LEVEL 29 MEQ/L (21-32); CHLORIDE LEVEL 101 MEQ/L (98-107); CREATININE FOR GFR 0.72 MG/DL (0.55-1.30); GLOMERULAR FILTRATION RATE > 60.0 (>60); GLUCOSE, FASTING 100 MG/DL (70-100); POTASSIUM SERUM 4.6 MEQ/L (3.5-5.1); SODIUM LEVEL 136 MEQ/L (136-145)
[2019-02-07] MEDS: buPROPion (WELLBUTRIN SR) 100 MG SR TAB PO SCH (08:26)
[2019-02-07] MEDS: GABAPENTIN 400 MG CAP PO SCH ×3 (08:26→20:26)
[2019-02-07] MEDS: AMPHETAMINE/DEXTROAMPHETAMINE 5 MG *ER* CAPSULE (ADDERALL XR) PO SCH (08:26)
[2019-02-07] MEDS: OMEPRAZOLE 20 MG CAP PO SCH ×2 (08:26→20:26)
[2019-02-07] MEDS: METHADONE 10 MG TAB (S0109) PO SCH (08:26)
[2019-02-07] MEDS: CETIRIZINE (ZyrTEC) 10 MG TAB PO SCH (08:26)
[2019-02-07] MEDS: FLUoxetine 20 MG CAP PO SCH (08:26)
[2019-02-07] MEDS: MONTELUKAST 10 MG TAB PO SCH (08:26)
[2019-02-07] MEDS: MAGNESIUM OXIDE 400 MG TAB (MAG-OX) PO SCH ×2 (08:26→20:26)
[2019-02-07] MEDS: VANCOMYCIN HCL 750 MG, VIAL MATE ADAPTER 1 EACH in D5W 250 ML IV SCH ×2 (08:27→15:49)
[2019-02-07] MEDS: NICOTINE POLACRILEX 2 MG GUM PO PRN ×2 (09:52→13:58)
[2019-02-07 14:00] VITALS: BP 130/88
[2019-02-07] MEDS: SODIUM CHLORIDE 0.9% INJ 10 ML SYR IV SCH (17:03)
[2019-02-07] MEDS: CYCLOBENZAPRINE 10 MG TAB PO PRN (20:29)
--- NOTE | 2019-02-07 20:43 | IPNPDOC ---
Date Seen The patient was seen on 02/07/19. Progress Note HISTORY OF PRESENT ILLNESS: 38-year-old female with past medical history of IV drug use, GERD, hepatitis C, fibromyalgia, depression and previous alcohol use, presents from home with fever, myalgia, arthralgias and back pain. Her symptoms started one to 2 weeks ago, have been worsening and she developed fever with diffuse arthralgias and myalgias a few days ago. She underwent a mechanical fall 1 week ago, fell down the stairs on her front porch, reports landing on her back, presents to the emergency department at that time, x-rays were negative for any fractures. In the ED today. She is found to have an acute L2 right transient process fracture. She is also febrile and CT chest is concerning for septic emboli. She reports that she has not used any IV drugs in the past 6 months; also reports that she has a memory issue due to her "disease" and sometimes she forgets what she does hence why she is not 100% sure if she has or has not done IV drugs recently. She does admit to snorting cocaine a couple of days ago and she is on methadone for history of opiate abuse. She currently reports pleuritic chest pain, worsening with deep inspiration, moderate to severe back pain, abdominal pain, along with her myalgias/arthralgias. She denies any nausea, vomiting or diarrhea. 02/06/19 Patient has been diagnosed with right-sided endocarditis from MRSA since the last time I saw her. Her cultures have been negative since summer, she remains on vancomycin, currently without any complaints, resting comfortably. She is unable to be discharged as she has a history of IV drug abuse and it is not ideal to send her home with a PICC line. 02/07/19 Patient comfortable, without complaints, awaiting infectious disease augmentation prior to discharge. She denies any shortness of breath, chest pain, nausea, vomiting, abdominal pain or diarrhea at this time. 10 point review of system is negative except for above PHYSICAL EXAMINATION: VITAL SIGNS: Please see below. GENERAL: No distress HEENT: Normocephalic, atraumatic, moist mucous membranes NECK: Supple CARDIOVASCULAR EXAMINATION: S1, S2, no murmurs RESPIRATORY EXAMINATION: Scattered rhonchi, no wheezing ABDOMINAL EXAMINATION: Soft, mild diffuse tenderness, nondistended, positive bowel sounds EXTREMITIES: Range of motion intact SKIN: No rash NEUROLOGICAL EXAMINATION: Alert and oriented 3, no focal deficits PSYCHIATRIC EXAMINATION: Calm and cooperative LABORATORY DATA: See below. MICROBIOLOGY: Please see below. ASSESSMENT: 38-year-old female with past medical history of polysubstance abuse and recent fall admitted for septic emboli secondary to endocarditis and acute L2 right transverse process fracture. PLAN: 1. Right-sided endocarditis from MRSA Tricuspid valve vegetation noted on KANCHAN, 0.6 cm, blood cultures grew MRSA, negative since February 02, continue IV vancomycin, unable to discharge patient with a PICC line given history of IV drug abuse. Was considering discharging patient on Zyvox, but she is on multiple SSRIs/SNRIs that may interact with Zyvox and cause serotonin syndrome. Patient is at high risk for loss of follow- up. No infectious disease consultation available until next week, will keep bettie ent on vancomycin until an alternative oral regimen can be discussed with infectious disease. 2. Acute L2 right transverse process fracture Secondary to mechanical fall, sustained 1 week ago, discussed with Dr. Ashraf, no intervention, pain control, no limitations to mobility/activity as per Ortho. 3. Hepatitis C Reportedly self cured, reports had levels checked last in one year ago which were negative. 4. Drug abuse. Previously used heroin, [place] and crack, currently snorts cocaine, U tox positive, continue methadone. 5. GERD. Continue PPI 6. Fibromyalgia. Continue Flexeril DVT prophylaxis: Heparin subcutaneous GI prophylaxis: Home PPI VS, I&O, 24H, Fishbone Vital Signs/I&O Vital Signs Date Time Temp Pulse Resp B/P (MAP) Pulse Ox O2 Delivery O2 Flow Rate FiO2 02/07/19 14:00 130/88 (102) 02/07/19 14:00 98.1 91 18 98 Room Air I&O- Last 24 Hours up to 6 AM 02/07/19 06:00 Intake Total 1595 ml Output Total 0 ml Balance 1595 ml Laboratory Data 24H LABS Laboratory Tests 2 02/07/19 07:06: Nucleated Red Blood Cells % (auto) 0.0, Anion Gap 6L, Glomerular Filtration Rate > 60.0, Calcium Level 9.0 CBC/BMP Laboratory Tests 02/07/19 07:06 Microbiology Microbiology 02/02/19 Blood Culture - Final, Complete NO GROWTH AFTER 5 DAYS 01/29/19 Blood Culture - Final, Complete Staph.aureus Methicillin Resis 01/29/19 Blood Culture - Final, Complete Staph.aureus Methicillin Resis 01/28/19 Blood Culture - Final, Complete Staph.aureus Methicillin Resis 01/28/19 Blood Culture - Final, Complete Staph.aureus Methicillin Resis ABBY ARIZA MD Feb 07, 2019 20:43
[2019-02-07 21:12] VITALS: BP 115/82
[2019-02-08] MEDS: VANCOMYCIN HCL 750 MG, VIAL MATE ADAPTER 1 EACH in D5W 250 ML IV SCH ×3 (00:41→16:24)
[2019-02-08] MEDS: HEPARIN SOD (PORCINE) 5000 UNITS/ML VIAL SQ SCH ×3 (06:24→21:40)
[2019-02-08] MEDS: SODIUM CHLORIDE 0.9% INJ 10 ML SYR IV SCH ×2 (06:25→18:07)
[2019-02-08 06:28] VITALS: BP 122/86
[2019-02-08 07:17] LABS: HEMATOCRIT 38.3 % (36.0-47.0); HEMOGLOBIN 11.9 g/dl (12.0-15.5); MEAN CORPUSCULAR HEMOGLOBIN 28.2 pg (27.0-33.0); MEAN CORPUSCULAR HGB CONC 31.1 g/dl (32.0-36.5); MEAN CORPUSCULAR VOLUME 90.8 fl (80.0-96.0); PLATELET COUNT, AUTOMATED 409 10^3/uL (150-450); RED BLOOD COUNT 4.22 10^6/uL (4.00-5.40); WHITE BLOOD COUNT 7.6 10^3/uL (4.0-10.0)
--- NOTE | 2019-02-08 07:55 | PHACANCOPD ---
PHARMACY VANCOMYCIN DOSING Pt Demographics Demographics Patient Age:38 , Weight:58.000 , Gender: female Adjusted Body Weight Date: 01/28/19, Adjusted Body Weight: Kg Vancomycin Vancomycin indication: ENDOCARDITIS Vancomycin Target Ranges: 15-20 mcg/ml Vancomycin Load Y/N: Yes Load Dose Date Time Vancomycin Load Dose: 1.25g Date: 02/01/19 Time: 18:00 Vancomycin Load Dose: 1000mg Date: 01-29 Time: 0000 Vancomycin Dose Date: 02/06/19. Current Vancomyin Dose: [750 mg IV q8h @00] Date: 02/03/19. Current Vancomycin Dose: [1g IV Q8H @15] Date: 02/01/19. Current Vancomycin Dose: [1g iv q6h] Date: 01/29/19. Current Vancomycin Dose: [1G IV Q8H] Date: 01/28/19. Current Vancomycin Dose: [750mg q8h] Intermittent Dosing?: No Labs Micro Microbiology 02/02/19 Blood Culture - Final, Complete NO GROWTH AFTER 5 DAYS 01/29/19 Blood Culture - Final, Complete Staph.aureus Methicillin Resis 01/29/19 Blood Culture - Final, Complete Staph.aureus Methicillin Resis Creatinine Clearance Date:02/04/19. Creatinine Clearance: [>100 ml/min]. Date:02/01/19. Creatinine Clearance: [123 ml/min]. Date:01/29/19. Creatinine Clearance: [134ML/MIN]. Date:01/28/19. Creatinine Clearance: [~60]. Pending Labs Assessment and Plan Maintaining Current Dose?: Yes Reason for dose change: No Dose Change Pharmacist Note Pharmacist Note Date: 02/08/19. Pharmacist note: Vancomycin trough drawn @0703 = 17.3. Will continue current Vancomycin regimen of 750 mg IV q8h. Pharmacy will continue to monitor and make adjustments as needed. Date: 02/06/19. Pharmacist note: Vancomycin trough drawn @ 1400 = 22.6. Dose was administered prior to trough resulting. We'll hold dose for 10 hours and change to 750 mg IV q8h. Pharmacy will continue to monitor and make adjustments as needed. Date: 02/05/19. Pharmacist note:Vancomycin trough drawn this morning=18(goal=15-20)SCR=0.63.Will continue current Vancomycin egimen of 1 gram IV [id number] continue to monitor Date: 02/04/19. Pharmacist note: vancomycin trough drawn yesterday 1 hour before the dose was elevated at 22.6 mcg/ml from the previous day of 19 mcg/ml. I reduced her dose to 1g IV q8h. I have a repeat trough scheduled for tomorrow morning. Repeat blood cultures drawn 02/02 have so far been NGTD. KANCHAN done 02/02 was positive for [place] infective endocarditis. We will continue to monitor and make adjustments as necessary. Date: 02/01/19. Pharmacist note: IV access was lost on this patient 01/31 am. A central line is being placed and dosing will restart 02/01/19 @18:00. The patient will be reloaded with 1.25g vancomycin IV. Maintenance therapy will be 1g IV every 6 hours starting 02/02/19 @ 00:00. A trough is scheduled for 11:00 01/03/19. We will continue to monitor and adjust the dose as needed. Date: 01/29/19. Pharmacist note:The patient trough came back @15:00 after the second dose at 7mcg/ml. Scr has improved to 0.44mg/dl. An additional 500mg vancomycin IV will be given after the 16:00 750mg IV dose. Maintenance dosing will be changed to 1g IV every 8 hours starting 01/30/19 @00:00. A trough is scheduled for 01/30/19 @15:00. We will continue to monitor and adjust the dose as needed. Date: 01/28/19. Pharmacist note:Will monitor and make adjustments as needed. JEM BENTLEY PHARMACY Feb 08, 2019 07:55
[2019-02-08] MEDS: GABAPENTIN 400 MG CAP PO SCH ×3 (08:43→20:06)
[2019-02-08] MEDS: METHADONE 10 MG TAB (S0109) PO SCH (08:43)
[2019-02-08] MEDS: FLUoxetine 20 MG CAP PO SCH (08:43)
[2019-02-08] MEDS: OMEPRAZOLE 20 MG CAP PO SCH ×2 (08:43→20:06)
[2019-02-08] MEDS: CETIRIZINE (ZyrTEC) 10 MG TAB PO SCH (08:43)
[2019-02-08] MEDS: buPROPion (WELLBUTRIN SR) 100 MG SR TAB PO SCH (08:43)
[2019-02-08] MEDS: AMPHETAMINE/DEXTROAMPHETAMINE 5 MG *ER* CAPSULE (ADDERALL XR) PO SCH (08:43)
[2019-02-08] MEDS: MONTELUKAST 10 MG TAB PO SCH (08:44)
[2019-02-08] MEDS: MAGNESIUM OXIDE 400 MG TAB (MAG-OX) PO SCH ×2 (08:44→20:06)
[2019-02-08] MEDS: NICOTINE POLACRILEX 2 MG GUM PO PRN ×2 (08:53→20:11)
[2019-02-08 14:00] VITALS: BP 148/88
--- NOTE | 2019-02-08 18:51 | IPNPDOC ---
Date Seen The patient was seen on 02/08/19. Progress Note HISTORY OF PRESENT ILLNESS: 38-year-old female with past medical history of IV drug use, GERD, hepatitis C, fibromyalgia, depression and previous alcohol use, presents from home with fever, myalgia, arthralgias and back pain. Her symptoms started one to 2 weeks ago, have been worsening and she developed fever with diffuse arthralgias and myalgias a few days ago. She underwent a mechanical fall 1 week ago, fell down the stairs on her front porch, reports landing on her back, presents to the emergency department at that time, x-rays were negative for any fractures. In the ED today. She is found to have an acute L2 right transient process fracture. She is also febrile and CT chest is concerning for septic emboli. She reports that she has not used any IV drugs in the past 6 months; also reports that she has a memory issue due to her "disease" and sometimes she forgets what she does hence why she is not 100% sure if she has or has not done IV drugs recently. She does admit to snorting cocaine a couple of days ago and she is on methadone for history of opiate abuse. She currently reports pleuritic chest pain, worsening with deep inspiration, moderate to severe back pain, abdominal pain, along with her myalgias/arthralgias. She denies any nausea, vomiting or diarrhea. 02/06/19 Patient has been diagnosed with right-sided endocarditis from MRSA since the last time I saw her. Her cultures have been negative since summer, she remains on vancomycin, currently without any complaints, resting comfortably. She is unable to be discharged as she has a history of IV drug abuse and it is not ideal to send her home with a PICC line. 02/07/19 Patient comfortable, without complaints, awaiting infectious disease augmentation prior to discharge. She denies any shortness of breath, chest pain, nausea, vomiting, abdominal pain or diarrhea at this time. 02/08/19 No acute events, has no complaints at this time, wishes to leave due to social issues at home. 10 point review of system is negative except for above PHYSICAL EXAMINATION: VITAL SIGNS: Please see below. GENERAL: No distress HEENT: Normocephalic, atraumatic, moist mucous membranes NECK: Supple CARDIOVASCULAR EXAMINATION: S1, S2, no murmurs RESPIRATORY EXAMINATION: Scattered rhonchi, no wheezing ABDOMINAL EXAMINATION: Soft, mild diffuse tenderness, nondistended, positive bowel sounds EXTREMITIES: Range of motion intact SKIN: No rash NEUROLOGICAL EXAMINATION: Alert and oriented 3, no focal deficits PSYCHIATRIC EXAMINATION: Calm and cooperative LABORATORY DATA: See below. MICROBIOLOGY: Please see below. ASSESSMENT: 38-year-old female with past medical history of polysubstance abuse and recent fall admitted for septic emboli secondary to endocarditis and acute L2 right transverse process fracture. PLAN: 1. Right-sided endocarditis from MRSA Tricuspid valve vegetation noted on KANCHAN, 0.6 cm, blood cultures grew MRSA, negative since February 02, continue IV vancomycin, unable to discharge patient with a PICC line given history of IV drug abuse. Was considering discharging patient on Zyvox, but she is on multiple SSRIs/SNRIs that may interact with Zyvox and cause serotonin syndrome. Patient is at high risk for loss of follow- up. No infectious disease consultation available until next week, will keep patient on vancomycin until an alternative oral regimen can be discussed with infectious disease. 2. Acute L2 right transverse process fracture Secondary to mechanical fall, sustained 1 week ago, discussed with Dr. Ashraf, no intervention, pain control, no limitations to mobility/activity as per Ortho. 3. Hepatitis C Reportedly self cured, reports had levels checked last in one year ago which were negative. 4. Drug abuse. Previously used heroin, Bryanna and crack, currently snorts cocaine, U tox positive, continue methadone. 5. GERD. Continue PPI 6. Fibromyalgia. Continue Flexeril DVT prophylaxis: Heparin subcutaneous GI prophylaxis: Home PPI VS, I&O, 24H, Fishbone Vital Signs/I&O Vital Signs Date Time Temp Pulse Resp B/P (MAP) Pulse Ox O2 Delivery O2 Flow Rate FiO2 02/08/19 14:00 98.5 88 18 148/88 (108) 95 Room Air I&O- Last 24 Hours up to 6 AM 02/08/19 06:00 Intake Total 2330 ml Output Total 0 ml Balance 2330 ml Laboratory Data 24H LABS Laboratory Tests 2 02/08/19 07:03: Nucleated Red Blood Cells % (auto) 0.0, Vancomycin Level Trough 17.3 CBC/BMP Laboratory Tests 02/08/19 07:03 Microbiology Microbiology 02/02/19 Blood Culture - Final, Complete NO GROWTH AFTER 5 DAYS 01/29/19 Blood Culture - Final, Complete Staph.aureus Methicillin Resis 01/29/19 Blood Culture - Final, Complete Staph.aureus Methicillin Resis ABBY ARIZA MD Feb 08, 2019 18:50
[2019-02-08 19:49] VITALS: BP 110/76
[2019-02-08] MEDS: CYCLOBENZAPRINE 10 MG TAB PO PRN (20:06)
[2019-02-09] MEDS: VANCOMYCIN HCL 750 MG, VIAL MATE ADAPTER 1 EACH in D5W 250 ML IV SCH ×4 (00:41→23:16)
[2019-02-09 05:38] VITALS: BP 109/76
[2019-02-09] MEDS: HEPARIN SOD (PORCINE) 5000 UNITS/ML VIAL SQ SCH ×3 (06:11→20:22)
[2019-02-09] MEDS: SODIUM CHLORIDE 0.9% INJ 10 ML SYR IV SCH ×3 (06:12→23:16)
[2019-02-09 08:49] LABS: BLOOD UREA NITROGEN 11 MG/DL (7-18); CALCIUM LEVEL 9.2 MG/DL (8.5-10.1); CARBON DIOXIDE LEVEL 26 MEQ/L (21-32); CHLORIDE LEVEL 100 MEQ/L (98-107); CREATININE FOR GFR 0.76 MG/DL (0.55-1.30); GLOMERULAR FILTRATION RATE > 60.0 (>60); GLUCOSE, FASTING 146 MG/DL (70-100); POTASSIUM SERUM 4.3 MEQ/L (3.5-5.1); SODIUM LEVEL 136 MEQ/L (136-145)
[2019-02-09] MEDS: MONTELUKAST 10 MG TAB PO SCH (08:57)
[2019-02-09] MEDS: METHADONE 10 MG TAB (S0109) PO SCH (08:57)
[2019-02-09] MEDS: OMEPRAZOLE 20 MG CAP PO SCH ×2 (08:57→20:21)
[2019-02-09] MEDS: GABAPENTIN 400 MG CAP PO SCH ×3 (08:57→20:21)
[2019-02-09] MEDS: FLUoxetine 20 MG CAP PO SCH (08:57)
[2019-02-09] MEDS: MAGNESIUM OXIDE 400 MG TAB (MAG-OX) PO SCH ×2 (08:57→20:21)
[2019-02-09] MEDS: CETIRIZINE (ZyrTEC) 10 MG TAB PO SCH (08:57)
[2019-02-09] MEDS: buPROPion (WELLBUTRIN SR) 100 MG SR TAB PO SCH (08:57)
[2019-02-09] MEDS: AMPHETAMINE/DEXTROAMPHETAMINE 5 MG *ER* CAPSULE (ADDERALL XR) PO SCH (10:02)
[2019-02-09] MEDS: ACETAMINOPHEN TAB 650MG DOSE (2X325MG) PO PRN ×2 (10:02→16:47)
[2019-02-09] MEDS: CYCLOBENZAPRINE 10 MG TAB PO PRN ×2 (10:02→16:48)
[2019-02-09 15:12] VITALS: BP 124/80
--- NOTE | 2019-02-09 21:55 | IPNPDOC ---
Date Seen The patient was seen on 02/09/19. Progress Note HISTORY OF PRESENT ILLNESS: 38-year-old female with past medical history of IV drug use, GERD, hepatitis C, fibromyalgia, depression and previous alcohol use, presents from home with fever, myalgia, arthralgias and back pain. Her symptoms started one to 2 weeks ago, have been worsening and she developed fever with diffuse arthralgias and myalgias a few days ago. She underwent a mechanical fall 1 week ago, fell down the stairs on her front porch, reports landing on her back, presents to the emergency department at that time, x-rays were negative for any fractures. In the ED today. She is found to have an acute L2 right transient process fracture. She is also febrile and CT chest is concerning for septic emboli. She reports that she has not used any IV drugs in the past 6 months; also reports that she has a memory issue due to her "disease" and sometimes she forgets what she does hence why she is not 100% sure if she has or has not done IV drugs recently. She does admit to snorting cocaine a couple of days ago and she is on methadone for history of opiate abuse. She currently reports pleuritic chest pain, worsening with deep inspiration, moderate to severe back pain, abdominal pain, along with her myalgias/arthralgias. She denies any nausea, vomiting or diarrhea. 02/06/19 Patient has been diagnosed with right-sided endocarditis from MRSA since the last time I saw her. Her cultures have been negative since summer, she remains on vancomycin, currently without any complaints, resting comfortably. She is unable to be discharged as she has a history of IV drug abuse and it is not ideal to send her home with a PICC line. 02/07/19 Patient comfortable, without complaints, awaiting infectious disease augmentation prior to discharge. She denies any shortness of breath, chest pain, nausea, vomiting, abdominal pain or diarrhea at this time. 02/08/19 No acute events, has no complaints at this time, wishes to leave due to social issues at home. 02/09/19 No change from yesterday, comfortable, awaiting ID recommendations when coverage is available. 10 point review of system is negative except for above PHYSICAL EXAMINATION: VITAL SIGNS: Please see below. GENERAL: No distress HEENT: Normocephalic, atraumatic, moist mucous membranes NECK: Supple CARDIOVASCULAR EXAMINATION: S1, S2, no murmurs RESPIRATORY EXAMINATION: Scattered rhonchi, no wheezing ABDOMINAL EXAMINATION: Soft, mild diffuse tenderness, nondistended, positive bowel sounds EXTREMITIES: Range of motion intact SKIN: No rash NEUROLOGICAL EXAMINATION: Alert and oriented 3, no focal deficits PSYCHIATRIC EXAMINATION: Calm and cooperative LABORATORY DATA: See below. MICROBIOLOGY: Please see below. ASSESSMENT: 38-year-old female with past medical history of polysubstance abuse and recent fall admitted for septic emboli secondary to endocarditis and acute L2 right transverse process fracture. PLAN: 1. Right-sided endocarditis from MRSA Tricuspid valve vegetation noted on KANCHAN, 0.6 cm, blood cultures grew MRSA, negative since February 02, continue IV vancomycin, unable to discharge patient with a PICC line given history of IV drug abuse. Was considering discharging patient on Zyvox, but she is on multiple SSRIs/SNRIs that may interact with Zyvox and cause serotonin syndrome. Patient is at high risk for loss of follow- up. No infectious disease consultation available until next week, will keep patient on vancomycin until an alternative oral regimen can be discussed with infectious disease. 2. Acute L2 right transverse process fracture Secondary to mechanical fall, sustained 1 week ago, discussed with Dr. Ashraf, no intervention, pain control, no limitations to mobility/activity as per Ortho. 3. Hepatitis C Reportedly self cured, reports had levels checked last in one year ago which were negative. 4. Drug abuse. Previously used heroin, Bryanna and crack, currently snorts cocaine, U tox positive, continue methadone. 5. GERD. Continue PPI 6. Fibromyalgia. Continue Flexeril DVT prophylaxis: Heparin subcutaneous GI prophylaxis: Home PPI VS, I&O, 24H, Fishbone Vital Signs/I&O Vital Signs Date Time Temp Pulse Resp B/P (MAP) Pulse Ox O2 Delivery O2 Flow Rate FiO2 02/09/19 15:12 98.1 78 16 124/80 (95) 98 02/09/19 05:38 Room Air I&O- Last 24 Hours up to 6 AM 02/09/19 06:00 Intake Total 4060 ml Balance 4060 ml Laboratory Data 24H LABS Laboratory Tests 2 02/09/19 08:11: Anion Gap 10, Glomerular Filtration Rate > 60.0, Calcium Level 9.2 CBC/BMP Laboratory Tests 02/09/19 08:11 Microbiology Microbiology 02/02/19 Blood Culture - Final, Complete NO GROWTH AFTER 5 DAYS ABBY ARIZA MD Feb 09, 2019 21:55
[2019-02-09 22:00] VITALS: BP 125/97
[2019-02-10] MEDS: HEPARIN SOD (PORCINE) 5000 UNITS/ML VIAL SQ SCH ×3 (05:31→21:56)
[2019-02-10 06:00] VITALS: BP 100/65
[2019-02-10 07:38] LABS: VANCOMYCIN LEVEL TROUGH 21.1 UG/ML (10.0-20.0)
[2019-02-10 08:41] LABS: CREATININE FOR GFR 0.77 MG/DL (0.55-1.30); GLOMERULAR FILTRATION RATE > 60.0 (>60)
[2019-02-10] MEDS: CETIRIZINE (ZyrTEC) 10 MG TAB PO SCH (09:41)
[2019-02-10] MEDS: OMEPRAZOLE 20 MG CAP PO SCH ×2 (09:41→20:51)
[2019-02-10] MEDS: FLUoxetine 20 MG CAP PO SCH (09:41)
[2019-02-10] MEDS: MONTELUKAST 10 MG TAB PO SCH (09:41)
[2019-02-10] MEDS: AMPHETAMINE/DEXTROAMPHETAMINE 5 MG *ER* CAPSULE (ADDERALL XR) PO SCH (09:42)
[2019-02-10] MEDS: GABAPENTIN 400 MG CAP PO SCH ×3 (09:42→20:51)
[2019-02-10] MEDS: MAGNESIUM OXIDE 400 MG TAB (MAG-OX) PO SCH ×2 (09:42→20:51)
[2019-02-10] MEDS: buPROPion (WELLBUTRIN SR) 100 MG SR TAB PO SCH (09:42)
[2019-02-10] MEDS: METHADONE 10 MG TAB (S0109) PO SCH (09:43)
[2019-02-10] MEDS: NICOTINE POLACRILEX 2 MG GUM PO PRN (09:57)
[2019-02-10] MEDS: VANCOMYCIN HCL 1,000 MG, VIAL MATE ADAPTER 1 EACH in D5W 250 ML IV SCH ×2 (12:21→23:17)
[2019-02-10 14:00] VITALS: BP 128/82
--- NOTE | 2019-02-10 15:06 | PHACANCOPD ---
PHARMACY VANCOMYCIN DOSING Pt Demographics Demographics Patient Age:38 , Weight:58.000 , Gender: female Adjusted Body Weight Date: 01/28/19, Adjusted Body Weight: Kg Vancomycin Vancomycin indication: ENDOCARDITIS Vancomycin Target Ranges: 15-20 mcg/ml Vancomycin Load Y/N: Yes Load Dose Date Time Vancomycin Load Dose: 1.25g Date: 02/01/19 Time: 18:00 Vancomycin Load Dose: 1000mg Date: 01-29 Time: 0000 Vancomycin Dose Date: 02/06/19. Current Vancomyin Dose: [750 mg IV q8h @00] Date: 02/03/19. Current Vancomycin Dose: [1g IV Q8H @15] Date: 02/01/19. Current Vancomycin Dose: [1g iv q6h] Date: 01/29/19. Current Vancomycin Dose: [1G IV Q8H] Date: 01/28/19. Current Vancomycin Dose: [750mg q8h] Intermittent Dosing?: No Labs Micro Microbiology 02/02/19 Blood Culture - Final, Complete NO GROWTH AFTER 5 DAYS Creatinine Clearance Date:02/04/19. Creatinine Clearance: [>100 ml/min]. Date:02/01/19. Creatinine Clearance: [123 ml/min]. Date:01/29/19. Creatinine Clearance: [134ML/MIN]. Date:01/28/19. Creatinine Clearance: [~60]. Pending Labs Assessment and Plan Maintaining Current Dose?: No Reason for dose change: Trough too high Pharmacist Note Pharmacist Note Date 02/10/19: Trough today at 0704 came back elevated at 21.1. Changed dose to vancomycin IV 1g every 12h to start at 1200. Trough scheduled for tomorrow 02/11 at 1100. Will continue to monitor this patient and adjust dose as needed. Date: 02/08/19. Pharmacist note: Vancomycin trough drawn @0703 = 17.3. Will continue current Vancomycin regimen of 750 mg IV q8h. Pharmacy will continue to monitor and make adjustments as needed. Date: 02/06/19. Pharmacist note: Vancomycin trough drawn @ 1400 = 22.6. Dose was administered prior to trough resulting. We'll hold dose for 10 hours and change to 750 mg IV q8h. Pharmacy will continue to monitor and make adjustments as needed. Date: 02/05/19. Pharmacist note:Vancomycin trough drawn this morning=18(goal=15- 20)SCR=0.63.Will continue current Vancomycin egimen of 1 gram IV [id number] continue to monitor Date: 02/04/19. Pharmacist note: vancomycin trough drawn yesterday 1 hour before the dose was elevated at 22.6 mcg/ml from the previous day of 19 mcg/ml. I reduced her dose to 1g IV q8h. I have a repeat trough scheduled for tomorrow morning. Repeat blood cultures drawn 02/02 have so far been NGTD. KANCHAN done 02/02 was positive for [place] infective endocarditis. We will continue to monitor and make adjustments as necessary. Date: 02/01/19. Pharmacist note: IV access was lost on this patient 01/31 am. A central line is being placed and dosing will restart 02/01/19 @18:00. The patient will be reloaded with 1.25g vancomycin IV. Maintenance therapy will be 1g IV every 6 hours starting 02/02/19 @ 00:00. A trough is scheduled for 11:00 01/03/19. We will continue to monitor and adjust the dose as needed. Date: 01/29/19. Pharmacist note:The patient trough came back @15:00 after the second dose at 7mcg/ml. Scr has improved to 0.44mg/dl. An additional 500mg vancomycin IV will be given after the 16:00 750mg IV dose. Maintenance dosing will be changed to 1g IV every 8 hours starting 01/30/19 @00:00. A trough is scheduled for 01/30/19 @15:00. We will continue to monitor and adjust the dose as needed. Date: 01/28/19. Pharmacist note:Will monitor and make adjustments as needed. HEATH GARCIA PHARMACY Feb 10, 2019 15:06
[2019-02-10] MEDS: SODIUM CHLORIDE 0.9% INJ 10 ML SYR IV SCH ×2 (16:32→23:18)
[2019-02-10 22:00] VITALS: BP 129/85
[2019-02-11] MEDS: HEPARIN SOD (PORCINE) 5000 UNITS/ML VIAL SQ SCH ×3 (05:09→21:00)
[2019-02-11 06:00] VITALS: BP 127/82
[2019-02-11] MEDS: NICOTINE POLACRILEX 2 MG GUM PO PRN (09:15)
[2019-02-11] MEDS: buPROPion (WELLBUTRIN SR) 100 MG SR TAB PO SCH (09:16)
[2019-02-11] MEDS: MAGNESIUM OXIDE 400 MG TAB (MAG-OX) PO SCH ×2 (09:16→21:00)
[2019-02-11] MEDS: CETIRIZINE (ZyrTEC) 10 MG TAB PO SCH (09:16)
[2019-02-11] MEDS: FLUoxetine 20 MG CAP PO SCH (09:16)
[2019-02-11] MEDS: GABAPENTIN 400 MG CAP PO SCH ×3 (09:17→20:59)
[2019-02-11] MEDS: AMPHETAMINE/DEXTROAMPHETAMINE 5 MG *ER* CAPSULE (ADDERALL XR) PO SCH (09:17)
[2019-02-11] MEDS: OMEPRAZOLE 20 MG CAP PO SCH ×2 (09:17→20:59)
[2019-02-11] MEDS: MONTELUKAST 10 MG TAB PO SCH (09:17)
[2019-02-11] MEDS: METHADONE 10 MG TAB (S0109) PO SCH (09:17)
[2019-02-11] MEDS: ALBUTEROL 90 MCG/ACT 8GM HFA INHALER INH SCH ×2 (10:22→11:28)
[2019-02-11] MEDS: VANCOMYCIN HCL 1,000 MG, VIAL MATE ADAPTER 1 EACH in D5W 250 ML IV SCH ×2 (12:06→23:18)
[2019-02-11 14:00] VITALS: BP 122/87
[2019-02-11] MEDS: SODIUM CHLORIDE 0.9% INJ 10 ML SYR IV SCH ×2 (15:43→23:18)
[2019-02-11] MEDS ORDERED: ALBUTEROL 90 MCG/ACT 8GM HFA INHALER INH PRN (16:30)
--- NOTE | 2019-02-11 20:16 | IPNPDOC ---
Date Seen The patient was seen on 02/11/19. Progress Note HISTORY OF PRESENT ILLNESS: 38-year-old female with past medical history of IV drug use, GERD, hepatitis C, fibromyalgia, depression and previous alcohol use, presents from home with fever, myalgia, arthralgias and back pain. Her symptoms started one to 2 weeks ago, have been worsening and she developed fever with diffuse arthralgias and myalgias a few days ago. She underwent a mechanical fall 1 week ago, fell down the stairs on her front porch, reports landing on her back, presents to the emergency department at that time, x-rays were negative for any fractures. In the ED today. She is found to have an acute L2 right transient process fracture. She is also febrile and CT chest is concerning for septic emboli. She reports that she has not used any IV drugs in the past 6 months; also reports that she has a memory issue due to her "disease" and sometimes she forgets what she does hence why she is not 100% sure if she has or has not done IV drugs recently. She does admit to snorting cocaine a couple of days ago and she is on methadone for history of opiate abuse. She currently reports pleuritic chest pain, worsening with deep inspiration, moderate to severe back pain, abdominal pain, along with her myalgias/arthralgias. She denies any nausea, vomiting or diarrhea. 02/06/19 Patient has been diagnosed with right-sided endocarditis from MRSA since the last time I saw her. Her cultures have been negative since summer, she remains on vancomycin, currently without any complaints, resting comfortably. She is unable to be discharged as she has a history of IV drug abuse and it is not ideal to send her home with a PICC line. 02/07/19 Patient comfortable, without complaints, awaiting infectious disease augmentation prior to discharge. She denies any shortness of breath, chest pain, nausea, vomiting, abdominal pain or diarrhea at this time. 02/08/19 No acute events, has no complaints at this time, wishes to leave due to social issues at home. 02/09/19 No change from yesterday, comfortable, awaiting ID recommendations when coverage is available. 02/11/19 Patient comfortable, without any complaints at this time, requesting albuterol inhaler. 10 point review of system is negative except for above PHYSICAL EXAMINATION: VITAL SIGNS: Please see below. GENERAL: No distress HEENT: Normocephalic, atraumatic, moist mucous membranes NECK: Supple CARDIOVASCULAR EXAMINATION: S1, S2, no murmurs RESPIRATORY EXAMINATION: Clear to auscultation no wheezing ABDOMINAL EXAMINATION: Soft, nontender, nondistended, positive bowel sounds EXTREMITIES: Range of motion intact SKIN: No rash NEUROLOGICAL EXAMINATION: Alert and oriented 3, no focal deficits PSYCHIATRIC EXAMINATION: Calm and cooperative LABORATORY DATA: See below. MICROBIOLOGY: Please see below. ASSESSMENT: 38-year-old female with past medical history of polysubstance abuse and recent fall admitted for septic emboli secondary to endocarditis and acute L2 right transverse process fracture. PLAN: 1. Right-sided endocarditis from MRSA Tricuspid valve vegetation noted on KANCHAN, 0.6 cm, blood cultures grew MRSA, negative since February 02, continue IV vancomycin, unable to discharge patient with a PICC line given history of IV drug abuse. Was considering discharging patient on Zyvox, but she is on multiple SSRIs/SNRIs that may interact with Zyvox and cause serotonin syndrome. Patient is at high risk for loss of follow- up. No infectious disease consultation available until next week, will keep patient on vancomycin until an alternative oral regimen can be discussed with infectious disease. 2. Acute L2 right transverse process fracture Secondary to mechanical fall, sustained 1 week ago, discussed with Dr. Ashraf, no intervention, pain control, no limitations to mobility/activity as per Ortho. 3. Hepatitis C Reportedly self cured, reports had levels checked last in one year ago which were negative. 4. Drug abuse. Previously used heroin, Bryanna and crack, currently snorts cocaine, U tox positive, continue methadone. 5. GERD. Continue PPI 6. Fibromyalgia. Continue Flexeril DVT prophylaxis: Heparin subcutaneous GI prophylaxis: Home PPI VS, I&O, 24H, Fishbone Vital Signs/I&O Vital Signs Date Time Temp Pulse Resp B/P (MAP) Pulse Ox O2 Delivery O2 Flow Rate FiO2 02/11/19 14:00 98.9 104 18 122/87 (99) 94 Room Air I&O- Last 24 Hours up to 6 AM 02/11/19 06:00 Intake Total 2970 ml Output Total 0 ml Balance 2970 ml Laboratory Data 24H LABS Laboratory Tests 2 02/11/19 10:36: Vancomycin Level Trough 14.5 Microbiology Microbiology 02/02/19 Blood Culture - Final, Complete NO GROWTH AFTER 5 DAYS ABBY ARIZA MD Feb 11, 2019 20:16
[2019-02-11] MEDS: ACETAMINOPHEN TAB 650MG DOSE (2X325MG) PO PRN (21:00)
[2019-02-11 22:00] VITALS: BP 118/88
[2019-02-12] MEDS: HEPARIN SOD (PORCINE) 5000 UNITS/ML VIAL SQ SCH ×3 (05:08→20:34)
[2019-02-12 06:48] VITALS: BP 124/75
[2019-02-12 08:15] LABS: HEMATOCRIT 38.2 % (36.0-47.0); HEMOGLOBIN 11.6 g/dl (12.0-15.5); MEAN CORPUSCULAR HEMOGLOBIN 28.1 pg (27.0-33.0); MEAN CORPUSCULAR HGB CONC 30.4 g/dl (32.0-36.5); MEAN CORPUSCULAR VOLUME 92.5 fl (80.0-96.0); PLATELET COUNT, AUTOMATED 465 10^3/uL (150-450); RED BLOOD COUNT 4.13 10^6/uL (4.00-5.40); WHITE BLOOD COUNT 6.1 10^3/uL (4.0-10.0)
[2019-02-12 08:49] LABS: BLOOD UREA NITROGEN 10 MG/DL (7-18); CALCIUM LEVEL 9.3 MG/DL (8.5-10.1); CARBON DIOXIDE LEVEL 29 MEQ/L (21-32); CHLORIDE LEVEL 101 MEQ/L (98-107); CREATININE FOR GFR 0.82 MG/DL (0.55-1.30); GLOMERULAR FILTRATION RATE > 60.0 (>60); GLUCOSE, FASTING 81 MG/DL (70-100); MAGNESIUM LEVEL 2.5 MG/DL (1.8-2.4); POTASSIUM SERUM 4.8 MEQ/L (3.5-5.1); SODIUM LEVEL 138 MEQ/L (136-145)
[2019-02-12] MEDS: OMEPRAZOLE 20 MG CAP PO SCH ×2 (09:30→20:33)
[2019-02-12] MEDS: GABAPENTIN 400 MG CAP PO SCH ×3 (09:31→20:33)
[2019-02-12] MEDS: MAGNESIUM OXIDE 400 MG TAB (MAG-OX) PO SCH ×2 (09:31→20:33)
[2019-02-12] MEDS: FLUoxetine 20 MG CAP PO SCH (09:31)
[2019-02-12] MEDS: METHADONE 10 MG TAB (S0109) PO SCH (09:31)
[2019-02-12] MEDS: CETIRIZINE (ZyrTEC) 10 MG TAB PO SCH (09:31)
[2019-02-12] MEDS: buPROPion (WELLBUTRIN SR) 100 MG SR TAB PO SCH (09:31)
[2019-02-12] MEDS: MONTELUKAST 10 MG TAB PO SCH (09:32)
[2019-02-12] MEDS: VANCOMYCIN HCL 1,000 MG, VIAL MATE ADAPTER 1 EACH in D5W 250 ML IV SCH (11:42)
[2019-02-12] MEDS: AMPHETAMINE/DEXTROAMPHETAMINE 5 MG *ER* CAPSULE (ADDERALL XR) PO SCH (12:45)
[2019-02-12 15:58] LABS: C REACTIVE PROTEIN QUANTITATIV 2.14 MG/DL (0.00-0.30)
[2019-02-12] MEDS: SODIUM CHLORIDE 0.9% INJ 10 ML SYR IV SCH (18:40)
--- NOTE | 2019-02-12 19:24 | IPNPDOC ---
Date Seen The patient was seen on 02/12/19. Progress Note HISTORY OF PRESENT ILLNESS: 38-year-old female with past medical history of IV drug use, GERD, hepatitis C, fibromyalgia, depression and previous alcohol use, presents from home with fever, myalgia, arthralgias and back pain. Her symptoms started one to 2 weeks ago, have been worsening and she developed fever with diffuse arthralgias and myalgias a few days ago. She underwent a mechanical fall 1 week ago, fell down the stairs on her front porch, reports landing on her back, presents to the emergency department at that time, x-rays were negative for any fractures. In the ED today. She is found to have an acute L2 right transient process fracture. She is also febrile and CT chest is concerning for septic emboli. She reports that she has not used any IV drugs in the past 6 months; also reports that she has a memory issue due to her "disease" and sometimes she forgets what she does hence why she is not 100% sure if she has or has not done IV drugs recently. She does admit to snorting cocaine a couple of days ago and she is on methadone for history of opiate abuse. She currently reports pleuritic chest pain, worsening with deep inspiration, moderate to severe back pain, abdominal pain, along with her myalgias/arthralgias. She denies any nausea, vomiting or diarrhea. 02/06/19 Patient has been diagnosed with right-sided endocarditis from MRSA since the last time I saw her. Her cultures have been negative since summer, she remains on vancomycin, currently without any complaints, resting comfortably. She is unable to be discharged as she has a history of IV drug abuse and it is not ideal to send her home with a PICC line. 02/07/19 Patient comfortable, without complaints, awaiting infectious disease augmentation prior to discharge. She denies any shortness of breath, chest pain, nausea, vomiting, abdominal pain or diarrhea at this time. 02/08/19 No acute events, has no complaints at this time, wishes to leave due to social issues at home. 02/09/19 No change from yesterday, comfortable, awaiting ID recommendations when coverage is available. 02/11/19 Patient comfortable, without any complaints at this time, requesting albuterol inhaler. 02/12/19 No acute events, comfortable, without complaints. She denies any SOB, CP, N/V/D or abdominal pain. 10 point review of system is negative except for above PHYSICAL EXAMINATION: VITAL SIGNS: Please see below. GENERAL: No distress HEENT: Normocephalic, atraumatic, moist mucous membranes NECK: Supple CARDIOVASCULAR EXAMINATION: S1, S2, no murmurs RESPIRATORY EXAMINATION: Clear to auscultation no wheezing ABDOMINAL EXAMINATION: Soft, nontender, nondistended, positive bowel sounds EXTREMITIES: Range of motion intact SKIN: No rash NEUROLOGICAL EXAMINATION: Alert and oriented 3, no focal deficits PSYCHIATRIC EXAMINATION: Calm and cooperative LABORATORY DATA: See below. MICROBIOLOGY: Please see below. ASSESSMENT: 38-year-old female with past medical history of polysubstance abuse and recent fall admitted for septic emboli secondary to endocarditis and acute L2 right transverse process fracture. PLAN: 1. Right-sided endocarditis from MRSA Tricuspid valve vegetation noted on KANCHAN, 0.6 cm, blood cultures grew MRSA, negative since February 02, continue IV vancomycin, unable to discharge patient with a PICC line given history of IV drug abuse. Was considering discharging patient on Zyvox, but she is on multiple SSRIs/SNRIs that may interact with Zyvox and cause serotonin syndrome. Patient is at high risk for loss of follow- up. Continue Vancomycin, ID consulted, awaiting recs. 2. Acute L2 right transverse process fracture Secondary to mechanical fall, sustained 1 week prior to admission, discussed with Dr. Ashraf, no intervention, pain control, no limitations to mobility/activity as per Ortho. 3. Hepatitis C Reportedly self cured, reports had levels checked last in one year ago which were negative. 4. Drug abuse. Previously used heroin, Bryanna and crack, currently snorts cocaine, U tox positive, continue methadone. 5. GERD. Continue PPI 6. Fibromyalgia. Continue Flexeril DVT prophylaxis: Heparin subcutaneous GI prophylaxis: Home PPI VS, I&O, 24H, Fishbone Vital Signs/I&O Vital Signs Date Time Temp Pulse Resp B/P (MAP) Pulse Ox O2 Delivery O2 Flow Rate FiO2 02/12/19 06:48 98.6 69 20 124/75 (91) 96 Room Air I&O- Last 24 Hours up to 6 AM 02/12/19 06:00 Intake Total 2360 ml Output Total 0 ml Balance 2360 ml Laboratory Data 24H LABS Laboratory Tests 2 02/12/19 07:42: Nucleated Red Blood Cells % (auto) 0.0, Anion Gap 8, Glomerular Filtration Rate > 60.0, Calcium Level 9.3, Magnesium Level 2.5H, C-Reactive Protein, Quantitative 2.14H 02/12/19 09:50: Vancomycin Level Trough 15.2 CBC/BMP Laboratory Tests 02/12/19 07:42 Microbiology Microbiology 02/02/19 Blood Culture - Final, Complete NO GROWTH AFTER 5 DAYS ABBY ARIZA MD Feb 12, 2019 19:24
[2019-02-12] MEDS: ADVAIR HFA 230/21MCG INHALER INH SCH (20:00)
--- NOTE | 2019-02-12 20:41 | CR ---
DATE OF CONSULTATION: 02/12/2019 CONSULTATION REPORT FOR: Dr. 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 HISTORY OF PRESENT ILLNESS: Rossana is a 38-year-old female with a history of IV drug abuse and hepatitis C who presented to the emergency room on 01/28/2019 with fever, back pain, cough, shortness of breath and hemoptysis. The patient was also complaining of increasing joint pains. She was admitted on 01/28/2019 with fever, back pain and diffuse arthralgia especially in the right knee. The patient had been seen in the emergency room on 01/15/2019 complaining of back pain. The patient was diagnosed with a lumbar process fracture. Chest CT was positive for evidence of multinodular septic emboli and blood cultures were positive for methicillin-resistant Staphylococcus aureus (MRSA). The patient was started on IV vancomycin which she has received for the past two weeks. She has a peripherally inserted central catheter (PICC) line. She has a chronic cough, has severe asthma, and has not been receiving her Breo inhaler or Ventolin. She has a history of snorting cocaine, which she had done a couple of days ago but has not used IV drugs in many months. She is on chronic methadone through the [facility] and sees Dr. Venegas. The patient had some pleuritic chest pain, right-sided back pain. She feels much better and would like to go home. She denies any nausea, vomiting or diarrhea. PAST MEDICAL HISTORY: Significant for: 1. IV drug use, heroin and cocaine that she mostly snorts or smokes. She has had a few relapses with cocaine recently. 2. Gastroesophageal reflux disease. 3. History of alcohol abuse. 4. Hepatitis C with continuous remission. 5. Asthma. 6. Fibromyalgia. 7. Depression. PAST SURGICAL HISTORY: 1. Tubal ligation. 2. Left knee surgery. SOCIAL HISTORY: She is a smoker. She smokes less than half a pack a day. She continues smoking cocaine, history of IV heroin use, currently on methadone 130 mg daily. She is not . She lives with her 5-year-old, 12-year-old and 15-year-old who has a 2-year-old daughter taking care of the house. She also has a nephew who helps out. Her mother moved to [place], [place] and has not been able to help. FAMILY HISTORY: Negative for heart disease. ALLERGIES: PNEUMOCOCCAL VACCINE causing swelling. MEDICATIONS: - albuterol two puffs four times a day - vancomycin 1 gram IV every 12 hours - Adderall XR 30 mg daily - Tylenol as needed - heparin subcutaneous - nicotine 2 mg by mouth every four hours as needed - albuterol/Atrovent nebulizers - Wellbutrin 100 mg by mouth daily - Zyrtec 10 mg by mouth daily - Prozac 40 mg by mouth daily - methadone 130 mg daily - Singulair 10 mg by mouth daily - gabapentin 400 mg by mouth three times a day - omeprazole 40 mg by mouth twice a day LABORATORY DATA: On admission, white count 6.1, hemoglobin 11.6, hematocrit 38.2, platelets 465. Sodium 138, potassium 4.8, chloride 101, bicarbonate 29, BUN 10, creatinine 0.82, glucose 81, calcium 9.3, phosphorus 2.5, CRP 2.14. Urine drug screen was positive for opiates, methadone and cocaine on 01/28/2019. Urinalysis had negative blood, negative nitrite, negative bilirubin, 2 white cells and 1 red cell. Glucose has ranged between 95 and 238. Blood cultures done on 01/28/2019 and 01/29/2019, four sets were positive for MRSA with MARY for vancomycin being less than 0.5, susceptibilities to other antibiotic intermediate to levofloxacin, sensitive to rifampin, tetracycline, Bactrim. Echocardiogram on 02/02/2019 shows a vegetation of the tricuspid valve, the atrial side, measuring about 0.6 cm with mild tricuspid regurgitation consistent with morongo valve endocarditis. CT abdomen and pelvis done on 01/28/2019 shows hepatic steatosis, common bile duct 0.7 cm, appendix normal, no hydronephrosis, acute right L2 transverse process fracture. CT chest on 01/28/2019 shows multinodular opacities in the lung suspicious for septic emboli. PHYSICAL EXAMINATION: Temperature is 98.6, pulse 69, respirations 20, blood pressure 124/75, oxygen saturation 96% on room air. Her last temperature was 100.9 on 01/31/2019. Oropharynx with no thrush. She has multiple dental cavities and broken teeth. She has an ulcer on her right cheek. HEART: Normal S1, S2. No murmurs, rubs or gallops appreciated. LUNGS: Diffuse expiratory wheezes bilaterally with diminished air entry. ABDOMEN: Soft, nontender. No hepatosplenomegaly. Multiple ecchymosis in the lower abdominal folds. GENITOURINARY (): She has multiple scars from hidradenitis which are mostly all healed in the groin, a few on the breast. EXTREMITIES: No clubbing, cyanosis or edema. SKIN: Has multiple tattoos. No obvious track argueta. No purulent discharge or boils. NEUROLOGIC: Anxious lady, a little bit on the hyper side with a normal neurologic examination. Upper and lower extremity strength normal. 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 The patient denies recent IV drug use. She admits to smoking cocaine but not IV drugs in months. The patient has done well on IV vancomycin 1 gram IV every 12 hours with negative blood cultures on 02/02/2019. The patient would like to go home to take care of her children. Ideally, the patient needs four weeks of IV antibiotics with vancomycin or daptomycin. The other possibility of treatment would have been a quinolone with rifampin but her susceptibility to Levaquin is intermediate to levofloxacin and therefore I am reluctant to using a quinolone. Suggest treating her with IV Dalvance for two more doses. PLAN: Consult patient and family services (PFS) for IV Dalvance prior authorization 1.5 grams to be given two doses apart, one week apart. The patient could have through the infusion unit if authorized by her insurance. She would also need blood work done after one week of Dalvance with a complete blood count (CBC), comprehensive metabolic panel (CMP), erythrocyte sedimentation rate (ESR), and C-reactive protein (CRP). The patient will need to followup in my office in two weeks after her two Dalvance infusions. She will also need followup with cardiology to have a followup echocardiogram at six weeks. As far as hepatitis C, the patient had no evidence of viremia on her most recent hepatitis C testing done on 06/22/2018 and 10/03/2018. We will obtain a repeat HIV test as it has not been done in over a year, CRP, ESR and CBC in the morning.
[2019-02-12] MEDS: ALBUTEROL 90 MCG/ACT 8GM HFA INHALER INH SCH (22:35)
[2019-02-13] MEDS: ACETAMINOPHEN TAB 650MG DOSE (2X325MG) PO PRN (00:03)
[2019-02-13] MEDS: VANCOMYCIN HCL 1,000 MG, VIAL MATE ADAPTER 1 EACH in D5W 250 ML IV SCH (00:03)
[2019-02-13] MEDS: SODIUM CHLORIDE 0.9% INJ 10 ML SYR IV SCH (05:38)
[2019-02-13] MEDS: HEPARIN SOD (PORCINE) 5000 UNITS/ML VIAL SQ SCH (05:38)
[2019-02-13 06:23] VITALS: BP 132/94
[2019-02-13] MEDS: ADVAIR HFA 230/21MCG INHALER INH SCH (07:45)
[2019-02-13] MEDS: ALBUTEROL 90 MCG/ACT 8GM HFA INHALER INH SCH (07:45)
[2019-02-13] MEDS: MAGNESIUM OXIDE 400 MG TAB (MAG-OX) PO SCH (09:42)
[2019-02-13] MEDS: AMPHETAMINE/DEXTROAMPHETAMINE 5 MG *ER* CAPSULE (ADDERALL XR) PO SCH (09:42)
[2019-02-13] MEDS: buPROPion (WELLBUTRIN SR) 100 MG SR TAB PO SCH (09:42)
[2019-02-13] MEDS: MONTELUKAST 10 MG TAB PO SCH (09:43)
[2019-02-13] MEDS: CETIRIZINE (ZyrTEC) 10 MG TAB PO SCH (09:43)
[2019-02-13] MEDS: GABAPENTIN 400 MG CAP PO SCH (09:43)
[2019-02-13] MEDS: METHADONE 10 MG TAB (S0109) PO SCH (09:43)
[2019-02-13] MEDS: FLUoxetine 20 MG CAP PO SCH (09:43)
[2019-02-13] MEDS: OMEPRAZOLE 20 MG CAP PO SCH (09:43)
--- NOTE | 2019-02-14 19:08 | DS.PDOC ---
Discharge Summary General Date of Admission Jan 28, 2019 at 23:10 Date of Discharge 02/13/19 Attending Physician: ABBY ARIZA MD Discharge Summary PROCEDURES PERFORMED DURING STAY: None ADMITTING DIAGNOSES: 1. MRSA infective endocarditis DISCHARGE DIAGNOSES: 1. MRSA infective endocarditis COMPLICATIONS/CHIEF COMPLAINT: Asthma,Depression,Fibromyalgia,Gerd,Hep C. HISTORY OF PRESENT ILLNESS: 38 y.o female w/ PMH of IV drug abuse, Hepatitis C & Depression was admitted for R sided Infective endocarditis due to MRSA likely from IV drug use. She has been treated w/ ~2 weeks of IV vancomycin, given IV drug use it was no ideal to discharge patient w/ PICC line for outpatient antibiotics. After consultation with ID, patient will be discharged today with outpatient follow up to receive 2 doses of Dalvance. She will receive her first dose on 02/14/19 & 2nd dose on 02/21/19. She is also advised to follow up w/ Dr. Lantigua (whom she has seen in the past) for further care. She is also advised to follow up w/ Cardiology & her PCP. She understands and is agreeable with the aforementioned plan. She is clinically and hemodynamically stable for discharge home. HOSPITAL COURSE: As above DISCHARGE MEDICATIONS: Please see below. ALLERGIES: Please see below. PHYSICAL EXAMINATION: VITAL SIGNS: Please see below. GENERAL: No distress HEENT: Normocephalic, atraumatic, moist mucous membranes NECK: Supple CARDIOVASCULAR EXAMINATION: S1, S2, no murmurs RESPIRATORY EXAMINATION: Clear to auscultation no wheezing ABDOMINAL EXAMINATION: Soft, nontender, nondistended, positive bowel sounds EXTREMITIES: Range of motion intact SKIN: No rash NEUROLOGICAL EXAMINATION: Alert and oriented 3, no focal deficits PSYCHIATRIC EXAMINATION: Calm and cooperative LABORATORY DATA: Please see below. IMAGING: Echo showing 0.6 cm Tricuspid valve vegetation PROGNOSIS: Fair ACTIVITY: As tolerated DIET: Regular DISCHARGE PLAN: Follow up w/ ID, Cardiology & PCP in 1-2 weeks DISPOSITION: 01 Home, Self-Care. DISCHARGE INSTRUCTIONS: 1. Follow up w/ outpatient physicians, follow up at infusion center on 02/14 & 02/21 for Dalvance infusion. DISCHARGE CONDITION: Stable TIME SPENT ON DISCHARGE: Greater than 36 minutes. Vital Signs/I&Os Vital Signs Date Time Temp Pulse Resp B/P (MAP) Pulse Ox O2 Delivery O2 Flow Rate FiO2 02/13/19 06:23 96.7 71 20 132/94 (107) 96 Room Air I&O- Last 24 Hours up to 6 AM 02/14/19 06:00 Intake Total 720 ml Balance 720 ml Discharge Medications Scheduled Bupropion HCl (Bupropion HCl Sr) 100 Mg Tab.sr.12h, 100 MG PO DAILY, (Reported) Cetirizine HCl (Cetirizine HCl) 10 Mg Tablet, 10 MG PO DAILY for allergy symptoms, (Reported) Dextroamphetamine/Amphetamine (Adderall Xr 30 mg Capsule) 1 Cap Cap, 1 CAP PO DAILY, (Reported) Fluoxetine Hcl (Fluoxetine HCl) 20 Mg Cap, 40 MG PO DAILY, (Reported) Fluticasone/Vilanterol (Breo Ellipta 200-25 Mcg INH) 1 Each Blst.w.dev, 1 PUFF INH DAILY, (Reported) Gabapentin (Gabapentin) 400 Mg Capsule, 400 MG PO TID, (Reported) Melatonin (Melatonin) 10 Mg Cap, 10 MG PO QHS, (Reported) Methadone HCl (Methadone HCl) 10 Mg Tab, 130 MG PO DAILY, (Reported) Montelukast Sodium (Montelukast Sodium) 10 Mg Tab, 10 MG PO DAILY, (Reported) Omeprazole (Omeprazole) 20 Mg Cap, 40 MG PO BID, (Reported) Scheduled PRN Albuterol Sulfate (Albuterol Sulfate Hfa) 8.5 Gm Hfa.aer.ad, 2 PUFFS INH Q4H PRN for SHORTNESS OF BREATH, (Reported) Cyclobenzaprine HCl (Cyclobenzaprine HCl) 10 Mg Tablet, 10 MG PO TID PRN for MUSCLE SPASMS, (Reported) Ibuprofen (Ibuprofen) 600 Mg Tablet, 600 MG PO Q6H PRN for PAIN, (Reported) Allergies Coded Allergies: pneumococcal vaccine (Verified Allergy, Unknown, Swelling,hives, 07/10/18) ABBY ARIZA MD Feb 14, 2019 19:08
== END 2019-02-13 12:45 | disposition home or self-care (01) | DRG 193 ==
LOC: M ED 17:22 → EEVIPCON 23:10 → M ED INP 23:10 → M PCU 01-29 00:29 → M MS5PR 02-04 15:31
PROVIDERS: ADMIT Internal Medicine; ATTEND Internal Medicine
PROC: 02HV33Z Insertion of Infusion Device into Superior Vena Cava, Percutaneous Approach (ICD-10-PCS; principal; 2019-02-01 15:00)
DX: I33.0 Acute and subacute infective endocarditis (principal); I76 Septic arterial embolism; R78.81 Bacteremia; S32.029A Unspecified fracture of second lumbar vertebra, initial encounter for closed fracture; E83.42 Hypomagnesemia; F14.90 Cocaine use, unspecified, uncomplicated; E87.6 Hypokalemia; B18.2 Chronic viral hepatitis C; W18.30XA Fall on same level, unspecified, initial encounter; Y92.009 Unspecified place in unspecified non-institutional (private) residence as the place of occurrence of the external cause; J45.909 Unspecified asthma, uncomplicated; M79.7 Fibromyalgia; K21.9 Gastro-esophageal reflux disease without esophagitis; Z79.899 Other long term (current) drug therapy; Z88.7 Allergy status to serum and vaccine; B95.62 Methicillin resistant Staphylococcus aureus infection as the cause of diseases classified elsewhere

== ENCOUNTER 2019-02-21 13:39 | Outpatient (CLI) | payer OTHER ==
[~2019-02-21] VITALS: Ht 152.4 cm; Wt 58.0 kg
[~2019-02-21 13:39] MED LIST changes: +BUPR1TAB52 PO; +CEFU1TAB22 PO; +IBUP1TAB6 PO; -OMEP-172 PO; +OMEP1CAP73 PO
[2019-02-21 14:18] LABS: HEMATOCRIT 41.3 % (36.0-47.0); HEMOGLOBIN 13.1 g/dl (12.0-15.5); MEAN CORPUSCULAR HGB CONC 31.7 g/dl (32.0-36.5); MEAN CORPUSCULAR VOLUME 91.6 fl (80.0-96.0); PLATELET COUNT, AUTOMATED 361 10^3/uL (150-450); RED BLOOD COUNT 4.51 10^6/uL (4.00-5.40); WHITE BLOOD COUNT 7.1 10^3/uL (4.0-10.0)
[2019-02-21 14:38] LABS: ALBUMIN 3.6 GM/DL (3.2-5.2); ALT/SGPT 35 U/L (12-78); BILIRUBIN,TOTAL 0.3 MG/DL (0.2-1.0); BLOOD UREA NITROGEN 9 MG/DL (7-18); C REACTIVE PROTEIN QUANTITATIV 3.64 MG/DL (0.00-0.30); CALCIUM LEVEL 9.2 MG/DL (8.5-10.1); CARBON DIOXIDE LEVEL 24 MEQ/L (21-32); CHLORIDE LEVEL 104 MEQ/L (98-107); GLOMERULAR FILTRATION RATE > 60.0 (>60); GLUCOSE, FASTING 79 MG/DL (70-100); POTASSIUM SERUM 4.3 MEQ/L (3.5-5.1); SODIUM LEVEL 136 MEQ/L (136-145); TOTAL PROTEIN 8.8 GM/DL (6.4-8.2)
[2019-02-21 14:40] LABS: ERYTHROCYTE SEDIMENTATION RATE 60 mm/hr (0-20)
[2019-02-21] MEDS ORDERED: DALBAVANCIN 1,500 MG in D5W 250 ML IV ONE (15:30)
[2019-02-21 15:40] VITALS: BP 99/65
== END 2019-02-21 16:00 | disposition home or self-care (01) ==
LOC: M INFU 13:39
PROVIDERS: ATTEND Internal Medicine Infectious Disease
DX: I33.0 Acute and subacute infective endocarditis (principal); B95.62 Methicillin resistant Staphylococcus aureus infection as the cause of diseases classified elsewhere; B18.2 Chronic viral hepatitis C; Z88.7 Allergy status to serum and vaccine
CPT/HCPCS: 36415; 80053; 85027; 85652; 86140; 96365; J0875

== ENCOUNTER 2019-06-20 14:56 | Emergency (ER) | payer OTHER ==
[~2019-06-20] VITALS: Ht 152.4 cm; Wt 57.1 kg
[~2019-06-20 14:56] MED LIST changes: +CYCL-707 PO; -CYCL10TA PO; -FLUO20CA19 PO; +FLUO20CA22 PO; -MONT10TA2 PO; +MONT10TA4 PO
[2019-06-20] MEDS ORDERED: CEFD1CAP8 PO (15:11)
[2019-06-20] MEDS ORDERED: predniSONE 20 MG TAB PO ONE (16:15)
[2019-06-20] MEDS ORDERED: ALBUTEROL 90 MCG/ACT 8GM HFA INHALER INH ONE (16:15)
[2019-06-20] MEDS ORDERED: PRED20TA PO (16:59)
[2019-06-20 17:25] VITALS: BP 106/58
--- NOTE | 2019-06-20 17:28 | REP ---
CHEST: Single view. There is no evidence of acute infiltrate. No pleural effusion is seen. The heart is normal in size. The mediastinal silhouette is unremarkable. The visualized osseous structures are intact. IMPRESSION: No acute pulmonary disease. Electronically Signed by Laurent Madrid MD 06/21/2019 12:54 P
== END 2019-06-20 17:26 | disposition home or self-care (01) ==
LOC: M ED 14:56
DX: J45.901 Unspecified asthma with (acute) exacerbation (principal); I10 Essential (primary) hypertension; B19.20 Unspecified viral hepatitis C without hepatic coma; F33.9 Major depressive disorder, recurrent, unspecified; F41.9 Anxiety disorder, unspecified; F43.10 Post-traumatic stress disorder, unspecified; M79.7 Fibromyalgia; Z79.899 Other long term (current) drug therapy; Z79.891 Long term (current) use of opiate analgesic; Z88.7 Allergy status to serum and vaccine; F17.210 Nicotine dependence, cigarettes, uncomplicated
CPT/HCPCS: 71045; 94640; 99283; C9803; U0003

== ENCOUNTER → 2019-07-13 | Outpatient (CLI) | payer OTHER ==
[2019-07-13 12:24] LABS: ALBUMIN 3.4 GM/DL (3.2-5.2); ALT/SGPT 26 U/L (12-78); BILIRUBIN,TOTAL 0.2 MG/DL (0.2-1.0); BLOOD UREA NITROGEN 11 MG/DL (7-18); CALCIUM LEVEL 8.7 MG/DL (8.5-10.1); CARBON DIOXIDE LEVEL 31 MEQ/L (21-32); CHLORIDE LEVEL 100 MEQ/L (98-107); CREATININE FOR GFR 0.51 MG/DL (0.55-1.30); GLOMERULAR FILTRATION RATE > 60.0 (>60); GLUCOSE, FASTING 79 MG/DL (70-100); POTASSIUM SERUM 4.2 MEQ/L (3.5-5.1); SODIUM LEVEL 138 MEQ/L (136-145); TOTAL 25(OH) VITAMIN D 26.1 NG/ML (30.0-100.0); TOTAL PROTEIN 7.2 GM/DL (6.4-8.2)
--- NOTE | 2019-07-13 21:29 | ECGEPIP ---
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 Electronically Signed on 07-13-2019 21:28:55 EDT by Phillip Villa
== END ==
LOC: M LAB 09:06
PROVIDERS: ATTEND Psychiatry & Neurology Child & Adolescent Psychiatry
DX: F32.9 Major depressive disorder, single episode, unspecified (principal); F43.10 Post-traumatic stress disorder, unspecified; F90.9 Attention-deficit hyperactivity disorder, unspecified type
CPT/HCPCS: 36415; 80053; 82306; 93005; G0480

== ENCOUNTER → 2019-09-06 | Outpatient (CLI) | payer OTHER ==
[~2019-09-06] MED LIST changes: +NAPR-885; +PENI500T; +ZOFR4TAB16 PO
[2019-10-06 13:49] LABS: BASO % 0.3 % (0.0-1.0); EOS # 0.1 10^3/uL (0.0-0.5); EOS % 0.7 % (0.0-3.0); HEMATOCRIT 43.9 % (36.0-47.0); HEMOGLOBIN 13.5 g/dl (12.0-15.5); LYMPH # 3.4 10^3/uL (1.5-5.0); MEAN CORPUSCULAR HEMOGLOBIN 29.5 pg (27.0-33.0); MEAN CORPUSCULAR HGB CONC 30.8 g/dl (32.0-36.5); MEAN CORPUSCULAR VOLUME 96.1 fl (80.0-96.0); MONO # 0.7 10^3/uL (0.0-0.8); MONO % 8.1 % (0.0-5.0); NEUTROPHILS # 4.4 10^3/uL (1.5-8.5); NEUTROPHILS % 51.4 % (36.0-66.0); PLATELET COUNT, AUTOMATED 281 10^3/uL (150-450); RED BLOOD COUNT 4.57 10^6/uL (4.00-5.40); WHITE BLOOD COUNT 8.6 10^3/uL (4.0-10.0)
== END ==
LOC: M LAB 09:10
PROVIDERS: ATTEND Internal Medicine Pulmonary Disease
DX: J45.41 Moderate persistent asthma with (acute) exacerbation (principal)

== ENCOUNTER 2019-10-02 14:35 | Emergency (ER) | payer OTHER ==
[~2019-10-02] VITALS: Ht 152.4 cm; Wt 67.1 kg
[~2019-10-02 14:35] MED LIST changes: -NAPR-885; -PENI500T; -ZOFR4TAB16 PO
[2019-10-02] MEDS ORDERED: PENI500T (14:47)
[2019-10-02] MEDS ORDERED: NAPR-885 (14:47)
[2019-10-02] MEDS ORDERED: ONDANSETRON 4MG/2ML VIAL IV ONE ×2 (16:45→17:45)
[2019-10-02 17:39] LABS: HEMATOCRIT 42.2 % (36.0-47.0); HEMOGLOBIN 13.6 g/dl (12.0-15.5); MEAN CORPUSCULAR HEMOGLOBIN 29.4 pg (27.0-33.0); MEAN CORPUSCULAR HGB CONC 32.2 g/dl (32.0-36.5); MEAN CORPUSCULAR VOLUME 91.3 fl (80.0-96.0); PLATELET COUNT, AUTOMATED 184 10^3/uL (150-450); RED BLOOD COUNT 4.62 10^6/uL (4.00-5.40); WHITE BLOOD COUNT 5.9 10^3/uL (4.0-10.0)
[2019-10-02] MEDS ORDERED: KETOROLAC 30 MG/ML 1ML VIAL IV ONE (17:45)
[2019-10-02 18:15] LABS: ANISOCYTOSIS 1+; ATYPICAL LYMPH 5 % (0-5); EOSINOPHILS 5 % (0-3); LYMPHOCYTES 8 % (16-44); MYELOCYTES 1 % (0-0); NEUTROPHILS 51 % (28-66)
[2019-10-02 18:16] LABS: HYPOCHROMASIA 1+; PLATELET ESTIMATE NORMAL (NORMAL)
[2019-10-02 18:17] LABS: ALT/SGPT 702 U/L (12-78); BILIRUBIN,DIRECT 2.3 MG/DL (0.0-0.2); BILIRUBIN,TOTAL 2.6 MG/DL (0.2-1.0); BLOOD UREA NITROGEN 10 MG/DL (7-18); CALCIUM LEVEL 8.9 MG/DL (8.5-10.1); CARBON DIOXIDE LEVEL 26 MEQ/L (21-32); CHLORIDE LEVEL 103 MEQ/L (98-107); CREATININE FOR GFR 0.45 MG/DL (0.55-1.30); GLOMERULAR FILTRATION RATE > 60.0 (>58); GLUCOSE, FASTING 63 MG/DL (70-100); LIPASE 90 U/L (73-393); POTASSIUM SERUM 3.7 MEQ/L (3.5-5.1); SODIUM LEVEL 135 MEQ/L (136-145); TOTAL PROTEIN 6.9 GM/DL (6.4-8.2)
[2019-10-02] MEDS ORDERED: ZOFR4TAB16 PO (20:02)
[2019-10-02 20:30] VITALS: BP 100/62
--- NOTE | 2019-10-22 14:05 | ECGEPIP ---
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
--- NOTE | 2019-10-30 10:44 | REP ---
TWO-VIEW CHEST COMPARISON: Portable examination of 06/20/2019 REASON FOR EXAM: Fever. FINDINGS: There is no significant change from the prior exam other than technique. The heart is not enlarged and the pleural angles are sharp. The lung charles are clear. The osseous structures are stable and intact. IMPRESSION: No acute cardiopulmonary disease. MTDD
== END 2019-10-02 20:43 | disposition home or self-care (01) ==
LOC: M ED 14:35
DX: R10.9 Unspecified abdominal pain (principal); R11.0 Nausea; B18.2 Chronic viral hepatitis C; J44.9 Chronic obstructive pulmonary disease, unspecified; F19.10 Other psychoactive substance abuse, uncomplicated; F17.210 Nicotine dependence, cigarettes, uncomplicated; Z79.51 Long term (current) use of inhaled steroids; Z79.899 Other long term (current) drug therapy
CPT/HCPCS: 71046; 80048; 80076; 81001; 83690; 85025; 87486; 87581; 87633; 87798; 93005; 93041; 96374; 96375; 96376; 99284; J1885; J2405

== ENCOUNTER → 2019-10-11 | Outpatient (CLI) | payer OTHER ==
[~2019-10-11] MED LIST changes: +NAPR-885; +PENI500T; +ZOFR4TAB16 PO
--- NOTE | 2019-11-06 07:46 | REP ---
LIMITED ABDOMINAL ULTRASOUND CLINICAL: History of chronic hepatitis C and drug abuse with elevated liver function tests. TECHNIQUE: Real-time vanegas scale ultrasound examination with color evaluation using curved array transducer. FINDINGS: The liver is enlarged and measures 20.5 cm in craniocaudal length with subtle increased echotexture suggesting fatty infiltration. No focal hepatic lesion identified. The pancreas is unremarkable. The gallbladder is normal and without gallstones, wall thickening, or pericholecystic fluid. No biliary ductal dilatation is appreciated and the common bile duct measures 3 mm in diameter. The right kidney is normal in reniform shape and vascularity without hydronephrosis and measures 11.1 x 5.3 x 3.6 cm. No ascites in the visualized right upper quadrant. Limited visualization of the abdominal aorta measuring 2 cm maximal diameter. IMPRESSION: * Hepatomegaly and mild hepatosteatosis. No focal hepatic lesion identified. * Otherwise normal limited abdominal ultrasound. MTDD
--- NOTE | 2019-11-06 07:47 | REP ---
PELVIC ULTRASOUND CLINICAL: Abnormal uterine bleeding. TECHNIQUE: Transabdominal pelvic ultrasound followed by transvaginal examination for better evaluation of the endometrium and adnexa with color Doppler evaluation of the ovaries. FINDINGS: The bladder is unremarkable and measures 8.3 x 6.1 x 4.2 cm. Normal anteverted uterus measures 7.0 x 3.4 x 4.8 cm. The endometrial complex measures 5 mm in thickness. No discrete uterine or endometrial abnormalities are appreciated. The bilateral ovaries are normal in appearance and vascularity without torsion. Right ovary measures 2.2 x 1.2 x 1.3 cm (RI 0.50). Left ovary measures 1.9 x 1.5 x 1.7 cm (RI 0.52). No pelvic fluid or adnexal mass lesion. IMPRESSION: Normal pelvic ultrasound. [facility]
== END ==
LOC: M WHC 08:35
PROVIDERS: ATTEND Physician Assistant
DX: R74.8 Abnormal levels of other serum enzymes (principal); F19.11 Other psychoactive substance abuse, in remission; B18.2 Chronic viral hepatitis C; N95.0 Postmenopausal bleeding; R16.0 Hepatomegaly, not elsewhere classified